=== PATIENT | female | born 1945 | race Caucasian/White ===

== ENCOUNTER 2019-05-02 11:14 | Inpatient (IN) | payer MEDICARE, MEDICAID ==
[~2019-05-02] VITALS: Ht 162.6 cm; Wt 74.8 kg
[2019-05-02 11:20] VITALS: BP 166/114
--- NOTE | 2019-05-02 11:23 | NUR ---
ED Nurse Note: Patient brought in to ER by ambulance from home due to SOB. Patient aao x4 and ambulatory with assist. skin clean and intact but pale. pt has hernia without pain on medial abdoman which has been since 2009. pt reported that she has had difficulty to breath for last 3 months and today it was worse and she called 911. 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 calm and cooperative.
[2019-05-02] MEDS ORDERED: DIGOX125 MCG PO (11:29)
[2019-05-02] MEDS ORDERED: FUROSEMIDE40 MG ORAL (11:29)
[2019-05-02] MEDS ORDERED: ELIQUIS5 MG PO (11:31)
[2019-05-02] MEDS ORDERED: AMIODARONE HCL100 MG ORAL (11:37)
[2019-05-02] MEDS ORDERED: Isovue-300 100ml vial INJ PRN (11:45)
[2019-05-02 12:08] LABS: BASOPHILS % (AUTO) 1.6 % (0.0-2.0); EOSINOPHILS % (AUTO) 6.8 % (0.0-3.0); HEMATOCRIT 45.1 % (37.0-47.0); HEMOGLOBIN 15.4 G/DL (12.0-16.0); LYMPHOCYTES % (AUTO) 17.9 % (20.0-45.0); MEAN CORPUSCULAR VOLUME 95 FL (80-99); MONOCYTES % (AUTO) 10.2 % (1.0-10.0); NEUTROPHILS % (AUTO) 63.5 % (45.0-75.0); PLATELET COUNT 246 K/UL (150-450); RED BLOOD COUNT 4.75 M/UL (4.20-5.40); RED CELL DISTRIBUTION WIDTH 12.3 % (11.6-14.8); WHITE BLOOD COUNT 8.2 K/UL (4.8-10.8)
[2019-05-02 12:17] LABS: ANION GAP 9 mmol/L (5-15); BLOOD UREA NITROGEN 20 mg/dL (7-18); CALCIUM 9.7 MG/DL (8.5-10.1); CARBON DIOXIDE 30 MMOL/L (21-32); CHLORIDE 101 MMOL/L (98-107); CREATININE 1.1 MG/DL (0.55-1.30); SODIUM 140 MMOL/L (136-145)
[2019-05-02 12:31] LABS: ALANINE AMINOTRANSFERASE 31 U/L (12-78); ALBUMIN 3.6 G/DL (3.4-5.0); ALBUMIN/GLOBULIN RATIO 0.9 (1.0-2.7); ALKALINE PHOSPHATASE 80 U/L (46-116); ASPARTATE AMINO TRANSFERASE 22 U/L (15-37); BILIRUBIN,TOTAL 0.6 MG/DL (0.2-1.0); CKMB 0.9 NG/ML (0.0-3.6); CREATINE KINASE 34 U/L (26-308)
--- NOTE | 2019-05-02 12:31 | NUR ---
ED Nurse Note: x-ray done at bedside.
--- NOTE | 2019-05-02 12:36 | NUR ---
ED Nurse Note: patient went to CT scan with stable condition.
--- NOTE | 2019-05-02 12:49 | Diagnostic Imaging Report ---
EXAM: XR Chest, 1 View CLINICAL HISTORY: SOB TECHNIQUE: Frontal view of the chest. COMPARISON: None FINDINGS: Hardware: None. Lungs/pleura: Left basilar opacity may represent combination of pleural effusion with atelectasis versus pneumonia. Pulmonary vasculature congestion. Heart/mediastinum: Enlargement of the cardiomediastinal silhouette. Atherosclerotic calcifications of the aorta. Soft tissues: Unremarkable. Bones: No acute fracture. Degenerative changes of the spine. Upper abdomen: Normal. IMPRESSION: Left basilar opacity may represent combination of pleural effusion with atelectasis versus pneumonia. Pulmonary vasculature congestion.
--- NOTE | 2019-05-02 12:57 | NUR ---
ED Nurse Note: pt came back from CT scan in stable condition.
--- NOTE | 2019-05-02 13:03 | NUR ---
ED Nurse Note: report given to SHELLY Alonso.
--- NOTE | 2019-05-02 13:32 | Diagnostic Imaging Report ---
EXAM: CT Chest With Intravenous Contrast CLINICAL HISTORY: SOB TECHNIQUE: Axial computed tomography images of the chest with intravenous contrast. CTDI is 21.75 mGy and DLP is 671.12 mGy-cm. One or more of the following dose reduction techniques were used: automated exposure control, adjustment of the mA and/or kV according to patient size, use of iterative reconstruction technique. COMPARISON: Chest radiograph on 05/02/2019 FINDINGS: Lung parenchyma: Calcified granulomas in the left lung. Subpleural nodular densities at the left lung apex, the largest measuring 6 mm. Left greater than right bibasilar atelectasis. Pleural space: Left-sided pleural thickening and/or trace effusion. Some nodular pleural thickening is seen posterior medially. Mediastinum/lorraine: Nonspecific prominent mediastinal and hilar lymph nodes. Calcified mediastinal and left hilar lymph nodes. Heart: Mild cardiomegaly. No pericardial effusion. Vasculature: Normal. No pulmonary embolus. Aorta: Atherosclerotic changes. No aortic dissection. Ectasia of the ascending aorta, measuring approximately 4.1 cm in diameter. Airways: Patent. Bones: Degenerative changes of the spine. No bony lesion or acute fracture. Muscles: No mass. Subcutaneous tissues: Normal. IMPRESSION: 1. No pulmonary embolus identified. 2. Ectasia of the ascending aorta measuring 4.1 cm in diameter. No aortic dissection. 3. Left-sided pleural thickening and/or trace effusion. Some nodular pleural thickening is seen posterior medially. Subpleural nodular densities at the left lung apex, the largest measuring 6 mm. 4. Old granulomatous disease. EXAM: CT Abdomen and Pelvis With Intravenous Contrast CLINICAL HISTORY: SOB TECHNIQUE: Axial computed tomography images of the abdomen and pelvis with intravenous contrast. CTDI is 22.28 mGy and DLP is 1091.73 mGy-cm. One or more of the following dose reduction techniques were used: automated exposure control, adjustment of the mA and/or kV according to patient size, use of iterative reconstruction technique. COMPARISON: None FINDINGS: Liver: Small hypodensity in the right liver is too small to definitively characterize. Punctate calcified granulomas in the liver. Mild hepatomegaly. Spleen: Punctate calcified granulomas in the spleen. No focal lesion. Gallbladder: Contracted gallbladder. No stones or biliary dilatation. Pancreas: Fatty atrophy of the pancreas. No acute inflammation. No mass. Adrenal glands: Normal. No mass. Kidneys: Scarring in the kidneys. Mildly prominent left extrarenal pelvis. No hydronephrosis or stone. No mass. Bowel: Diverticulosis without evidence of diverticulitis. Normal appendix. No bowel obstruction or inflammation. Urinary bladder: Normal. No wall thickening or mass. Reproductive organs: Prior hysterectomy. Muscles: No mass. Subcutaneous tissues: Postsurgical changes of the anterior abdominal wall. Small fat-containing umbilical hernia. Peritoneal space: Normal. No free fluid. Lymph nodes: Normal. No lymphadenopathy. Vessels: Atherosclerotic changes of the vasculature. Mild ectasia of the distal abdominal aorta. No aortic dissection. Bones: Degenerative changes of the spine. No acute fracture or bony lesion. IMPRESSION: No acute abnormality in the abdomen or pelvis.
--- NOTE | 2019-05-02 14:00 | NUR ---
ED Nurse Note: pt left unit with 1 technology internship and 1 RN in stable condition.
--- NOTE | 2019-05-02 14:05 | NUR ---
NURSE NOTES: Received report from Queenie daily. Pt is A&O X4. She is ambulatory without assist. Pt has steady gait. Belongings accounted for. Signed Belongings list is in chart. Heart monitor applied to pt. IV is patent. Bed is in lowest position, side rails up X2, and call light is within reach. Will continue to monitor.
--- NOTE | 2019-05-02 14:25 | Emergency Room Report ---
History of Present Illness General Chief Complaint: Dyspnea/Respdistress Source: Patient, EMS Present Illness HPI 73-year-old female presents ED for evaluation. Brought in by EMS complaining of shortness of breath for the last few days. Denies chest pain. States she has history of hiatal hernia required surgery years ago. Believes it could be related to that. Denies fevers chills. Denies cough. History of A. fib on Eliquis. No other aggravating relieving factors. Denies any other associated symptoms Allergies: Coded Allergies: No Known Allergies (Unverified , 05/02/19) Patient History Past Medical History: HTN Past Surgical History: none Pertinent Family History: none Social History: Denies: smoking, alcohol use, drug use Now: No Immunizations: UTD Reviewed Nursing Documentation: PMH: Agreed; PSxH: Agreed Nursing Documentation-PMH Past Medical History: No Stated History Hx Hypertension: Yes Hx COPD: No Review of Systems All Other Systems: negative except mentioned in HPI Physical Exam Vital Signs Date Time Temp Pulse Resp B/P (MAP) Pulse Ox O2 Delivery O2 Flow Rate FiO2 05/02/19 11:13 98.4 84 18 166/114 (131) 94 Room Air Sp02 EP Interpretation: reviewed, normal General Appearance: no apparent distress, alert, GCS 15, non-toxic Head: normocephalic, atraumatic Eyes: bilateral eye normal inspection, bilateral eye PERRL ENT: hearing grossly normal, normal pharynx, no angioedema, normal voice Neck: full range of motion, supple/symm/no masses Respiratory: chest non-tender, lungs clear, normal breath sounds, speaking full sentences Cardiovascular #1: regular rate, rhythm, no edema Cardiovascular #2: 2+ carotid (R), 2+ carotid (L), 2+ radial (R), 2+ radial (L) , 2+ dorsalis pedis (R), 2+ dorsalis pedis (L) Gastrointestinal: normal bowel sounds, non tender, soft, non-distended, no guarding, no rebound Rectal: deferred Genitourinary: normal inspection, no CVA tenderness Musculoskeletal: back normal, gait/station normal, normal range of motion, non- tender Neurologic: alert, oriented x3, responsive, motor strength/tone normal, sensory intact, speech normal Psychiatric: judgement/insight normal, memory normal, mood/affect normal, no suicidal/homicidal ideation Reflexes: 3+ bicep (R), 3+ bicep (L), 3+ tricep (R), 3+ tricep (L), 3+ knee (R) , 3+ knee (L) Skin: normal color, no rash, warm/dry, well hydrated Lymphatic: no adenopathy Medical Decision Making Diagnostic Impression: Primary Impression: Hypertensive urgency Additional Impressions: SOB (shortness of breath) Atrial fibrillation Qualified Codes: I48.91 - Unspecified atrial fibrillation Pleural effusion ER Course Hospital Course 73 yo F presents with SOB. h/o hypertension. h/o hiatal hernia Differential diagnoses include: Pneumonia, CHF exacerbation, pneumothorax, fluid overload Clinical course Patient placed on stretcher. On security monitor. After initial history and physical, I ordered labs, IV fluids, EKG, chest x-ray,CT Chest/Abd/Pelvis Labs - no leukocytosis, hb/hct stable, electrolytes ok, BNP eleavted, trop negative EKG - afib no evidence of RVR CXR - L sided effusion CT Chest - L sided effusion, no signs of hiatal hernia initially hypertensive resolved without medication. Test findings with patient. States that she had prior episode of pleural effusion. States she had smoked but stopped 30 years ago. lactate/cultures drawn. Antibiotics given. Case discussed with Dr. Coronel and he agreed to the patient to his service for further care and support I feel this is a highly complex case requiring extensive working including EKG/ Rhythm strip, Xray/CT/US, Blood/urine lab work, repeat exams while in ED, and administration of strong opiates/narcotics for pain control, admission to hospital or close patient follow up. Diagnosis - hypertensive urgency, shortness of breath, atrial fibrillation, pleural effusion Patient admitted to telemetry in serious condition Labs Test 05/02/19 11:50 05/02/19 14:00 White Blood Count 8.2 K/UL (4.8-10.8) Red Blood Count 4.75 M/UL (4.20-5.40) Hemoglobin 15.4 G/DL (12.0-16.0) Hematocrit 45.1 % (37.0-47.0) Mean Corpuscular Volume 95 FL (80-99) Mean Corpuscular Hemoglobin 32.4 PG (27.0-31.0) Mean Corpuscular Hemoglobin Concent 34.1 G/DL (32.0-36.0) Red Cell Distribution Width 12.3 % (11.6-14.8) Platelet Count 246 K/UL (150-450) Mean Platelet Volume 7.1 FL (6.5-10.1) Neutrophils (%) (Auto) 63.5 % (45.0-75.0) Lymphocytes (%) (Auto) 17.9 % (20.0-45.0) Monocytes (%) (Auto) 10.2 % (1.0-10.0) Eosinophils (%) (Auto) 6.8 % (0.0-3.0) Basophils (%) (Auto) 1.6 % (0.0-2.0) Prothrombin Time 10.2 SEC (9.30-11.50) Prothromb Time International Ratio 1.0 (0.9-1.1) Activated Partial Thromboplast Time 25 SEC (23-33) Sodium Level 140 MMOL/L (136-145) Potassium Level 4.0 MMOL/L (3.5-5.1) Chloride Level 101 MMOL/L (98-107) Carbon Dioxide Level 30 MMOL/L (21-32) Anion Gap 9 mmol/L (5-15) Blood Urea Nitrogen 20 mg/dL (7-18) Creatinine 1.1 MG/DL (0.55-1.30) Estimat Glomerular Filtration Rate mL/min (>60) Glucose Level 126 MG/DL (74-106) Calcium Level 9.7 MG/DL (8.5-10.1) Total Bilirubin 0.6 MG/DL (0.2-1.0) Aspartate Amino Transf (AST/SGOT) 22 U/L (15-37) Alanine Aminotransferase (ALT/SGPT) 31 U/L (12-78) Alkaline Phosphatase 80 U/L (46-116) Total Creatine Kinase 34 U/L (26-308) Creatine Kinase MB 0.9 NG/ML (0.0-3.6) Creatine Kinase MB Relative Index 2.6 Troponin I 0.004 ng/mL (0.000-0.056) Pro-B-Type Natriuretic Peptide 1581 pg/mL (0-125) Total Protein 7.5 G/DL (6.4-8.2) Albumin 3.6 G/DL (3.4-5.0) Globulin 3.9 g/dL Albumin/Globulin Ratio 0.9 (1.0-2.7) EKG Diagnostic Results Rate: normal Rhythm: other - atrial fibrillation ST Segments: no acute changes ASA given to the pt in ED: No Rhythm Strip Diag. Results EP Interpretation: yes Rhythm: no PVC's, no ectopy Chest X-Ray Diagnostic Results Chest X-Ray Diagnostic Results : Chest X-Ray Ordered: Yes # of Views/Limited/Complete: 1 View Indication: Shortness of Breath EP Interpretation: Yes Interpretation: no pneumothorax, other - L sided effusion Impression: Other - L sided effusion Electronically Signed by: Electronically signed by Jeremias Man MD CT/MRI/US Diagnostic Results CT/MRI/US Diagnostic Results : Imaging Test Ordered: CT Chest/Abd/Pelvis Impression 1. No pulmonary embolus identified. 2. Ectasia of the ascending aorta measuring 4.1 cm in diameter. No aortic dissection. 3. Left-sided pleural thickening and/or trace effusion. Some nodular pleural thickening is seen posterior medially. Subpleural nodular densities at the left lung apex, the largest measuring 6 mm. 4. Old granulomatous disease. Last Vital Signs Date Time Temp Pulse Resp B/P (MAP) Pulse Ox O2 Delivery O2 Flow Rate FiO2 05/02/19 14:00 98.0 80 18 151/111 98 Room Air Status: improved Disposition: ADMITTED INPATIENT Condition: Serious Referrals: NON PHYSICIAN (PCP) Jeremias Man MD May 02, 2019 14:25
--- NOTE | 2019-05-02 15:12 | History & Physical ---
History and Physical History & Physicial seen and Examined. Full Dictation completed. Devon Coronel MD May 02, 2019 15:12
[2019-05-02] MEDS ORDERED: Albuterol/Ipratropium 3ml neb HHN PRN (15:15)
[2019-05-02] MEDS ORDERED: Nitroglycerin Subl 0.4mg tab SL PRN (15:45)
--- NOTE | 2019-05-02 15:52 | Infectious Diseases Prog Note ---
Assessment/Plan Problems: (1) Pleural nodules Assessment & Plan: rule out fungal etiology , will order serology , consider pulmonary eval (2) Pleural effusion Assessment & Plan: nonspecific , monitor clinically, too small for thoracentesis (3) SOB (shortness of breath) Assessment & Plan: rule out interstitial lungs disease with H/O living close by [place] [employer] plants Subjective Allergies: Coded Allergies: No Known Allergies (Unverified , 05/02/19) Objective Vital Signs Last 24 Hour Vital Signs Date Time Temp Pulse Resp B/P (MAP) Pulse Ox O2 Delivery O2 Flow Rate FiO2 05/02/19 14:00 98.0 80 18 151/111 98 Room Air 05/02/19 11:20 98.4 84 18 166/114 96 Room Air 05/02/19 11:20 84 18 Room Air 05/02/19 11:13 98.4 84 18 166/114 (131) 94 Room Air Height (Feet): 5 Height (Inches): 4.00 Weight (Pounds): 165 Laboratory Tests Test 05/02/19 11:50 05/02/19 14:00 White Blood Count 8.2 K/UL (4.8-10.8) Red Blood Count 4.75 M/UL (4.20-5.40) Hemoglobin 15.4 G/DL (12.0-16.0) Hematocrit 45.1 % (37.0-47.0) Mean Corpuscular Volume 95 FL (80-99) Mean Corpuscular Hemoglobin 32.4 PG (27.0-31.0) H Mean Corpuscular Hemoglobin Concent 34.1 G/DL (32.0-36.0) Red Cell Distribution Width 12.3 % (11.6-14.8) Platelet Count 246 K/UL (150-450) Mean Platelet Volume 7.1 FL (6.5-10.1) Neutrophils (%) (Auto) 63.5 % (45.0-75.0) Lymphocytes (%) (Auto) 17.9 % (20.0-45.0) L Monocytes (%) (Auto) 10.2 % (1.0-10.0) H Eosinophils (%) (Auto) 6.8 % (0.0-3.0) H Basophils (%) (Auto) 1.6 % (0.0-2.0) Prothrombin Time 10.2 SEC (9.30-11.50) Prothromb Time International Ratio 1.0 (0.9-1.1) Activated Partial Thromboplast Time 25 SEC (23-33) Sodium Level 140 MMOL/L (136-145) Potassium Level 4.0 MMOL/L (3.5-5.1) Chloride Level 101 MMOL/L (98-107) Carbon Dioxide Level 30 MMOL/L (21-32) Anion Gap 9 mmol/L (5-15) Blood Urea Nitrogen 20 mg/dL (7-18) H Creatinine 1.1 MG/DL (0.55-1.30) Estimat Glomerular Filtration Rate mL/min (>60) Glucose Level 126 MG/DL (74-106) H Calcium Level 9.7 MG/DL (8.5-10.1) Total Bilirubin 0.6 MG/DL (0.2-1.0) Aspartate Amino Transf (AST/SGOT) 22 U/L (15-37) Alanine Aminotransferase (ALT/SGPT) 31 U/L (12-78) Alkaline Phosphatase 80 U/L (46-116) Total Creatine Kinase 34 U/L (26-308) Creatine Kinase MB 0.9 NG/ML (0.0-3.6) Creatine Kinase MB Relative Index 2.6 Troponin I 0.004 ng/mL (0.000-0.056) Pro-B-Type Natriuretic Peptide 1581 pg/mL (0-125) H Total Protein 7.5 G/DL (6.4-8.2) Albumin 3.6 G/DL (3.4-5.0) Globulin 3.9 g/dL Albumin/Globulin Ratio 0.9 (1.0-2.7) L Lactic Acid Level 1.10 mmol/L (0.4-2.0) Digoxin Level < 0.2 NG/ML (0.9-2.0) L Current Medications Medications (Trade) Dose Ordered Sig/Felipe Route PRN Reason Start Time Stop Time Status Last Admin Dose Admin Albuterol/ Ipratropium (Albuterol/ Ipratropium) 3 ml Q4H PRN HHN Shortness of Breath 05/02/19 15:15 05/07/19 15:14 Iopamidol (Isovue-300 100ml) 100 ml NOW PRN INJ Radiology Procedure 05/02/19 11:45 Carolyne Pinto M.D. May 02, 2019 15:52
--- NOTE | 2019-05-02 16:36 | NUR ---
NURSE NOTES: Received report from SHELLY Calzada. Patient in bed resting, no active s/s cardiac, respiratory distress noticed at this time. Patient on room air, AOx4. IV on right hand 20G, asymptomatic, patent, intact. Bed in lowest position, side rails upx2, call light within reach. Will continue to monitor.
--- NOTE | 2019-05-02 16:39 | NUR ---
HAND-OFF: Report given to Queenie Munoz. Plan of care endorsed
--- NOTE | 2019-05-02 17:42 | NUR ---
NURSE NOTES: Dr. Madrigal made aware patient having A. fib with HR 100-130s. No order given at this time. Will continue to monitor.
--- NOTE | 2019-05-02 17:52 | NUR ---
NURSE NOTES: Per Dr. Madrigal, order 2D echo in AM. 2D echo already been ordered by Dr. Coronel. Will continue to monitor.
--- NOTE | 2019-05-02 19:07 | NUR ---
HAND-OFF: Report given to SHELLY Tian.
--- NOTE | 2019-05-02 19:34 | NUR ---
NURSE NOTES: Report received from Aung Hartman RN. Pt is sitting up at bedside talking on the telephone. Pt is in stable condition. Pt is AOx4. Pt is on room air and breathing is even and unlabored. No acute distress noted. IV site is R hand #20g and is asymptomatic, patent, and intact. Bed is in lowest position with brake engaged and side rails up x2. Call light and side table placed within reach. Will continue to monitor.
[2019-05-02 20:00] VITALS: BP 181/94
--- NOTE | 2019-05-02 20:01 | History and Physical Report ---
DATE OF ADMISSION: 05/02/2019 SOURCE OF INFORMATION: Patient and EMR. HISTORY OF PRESENT ILLNESS: The patient is a pleasant 73-year-old female with a history of heart failure (unverified), who presented with worsening of shortness of breath for the last five days. At the time of evaluation, the patient denies any chest pain. No fever. No cough. However, the patient is complaining of worsening of shortness of breath and swelling on the legs. At the time of evaluation, the patient appears comfortable. REVIEW OF SYSTEMS: All 12 elements of review of systems reviewed, pertinent positive and negative as above. ALLERGIES: NKDA. FAMILY HISTORY: Reviewed, noncontributory. SOCIAL HISTORY: The patient denies history of illicit drug abuse, alcohol abuse, or tobacco use. Positive for social alcohol drinking. The patient lives by herself. PAST MEDICAL HISTORY: Atrial fibrillation, heart failure (unverified), hypertension. HOME MEDICATIONS: Including Eliquis, digoxin, Lasix. PHYSICAL EXAMINATION: VITAL SIGNS: Blood pressure 160/110, respiratory rate 18, temperature 98.4, pulse rate 84, pulse oximetry 94% on room air. HEAD AND NECK: Atraumatic, normocephalic. CHEST: Clear to auscultation. HEART: S1, S2. Regular rate and rhythm. ABDOMEN: Soft. No organomegaly. MUSCULOSKELETAL: Positive for 2+ pitting edema in the bilateral ankles. NEUROLOGIC: Awake, alert, oriented x3. LABORATORY DATA: Dated 05/02/2019, WBC is 8.2, hemoglobin 15.4, platelets 264. Sodium 140, potassium 4. ALT, AST are within normal limits. Chest x-ray dated 05/02/2019 reviewed shows left basilar opacity. CT scan of the abdomen and pelvis reviewed. ASSESSMENT AND PLAN: 1. Congestive heart failure exacerbation, a likely diagnosis. 2. Healthcare-associated pneumonia, less likely. 3. Atrial fibrillation with controlled rate. 4. Hypertension. 5. Abnormal blood sugar. 6. GI and DVT prophylaxes. PLAN OF CARE: I will order 2D echo. Cardiology consult. We will consult the Pulmonary and Infectious Disease. Continue with breathing treatment as needed. We will hold on initiation of any antibiotic. We will monitor. Devon Coronel M.D. DR: ASHLEY JOB#: [id number] CC:
--- NOTE | 2019-05-02 20:15 | Consultation ---
DATE OF CONSULTATION: 05/02/2019 INFECTIOUS DISEASE CONSULTATION CONSULTING PHYSICIAN: Carolyne Pinto M.D. REQUESTING PHYSICIAN: Devon Coronel M.D. REASON FOR CONSULTATION: Left pleural thickening with nodules and pleural effusion. Recommendation for antimicrobial treatment and further management. HISTORY OF PRESENT ILLNESS: The patient is a 73-year-old morbidly obese female with past medical history of hypertension, presented to the emergency room at [facility] with shortness of breath for the last three weeks and dry cough. No chest pain. No night sweats or weight loss. No fever or chills. Shortness of breath gets worse with activities and lying flat. The patient was treated previously for fungal pneumonia in 2008 when she moved from [place] to [facility] in 2008. She is unsure what kind of fungal pneumonia she was treated for. As of note, the patient was living close by [employer] in the past. Denied any smoking or living with a smoker during her life. In the emergency room, the patient had a chest x-ray, which showed minimal left pleural effusion with some atelectasis. CT scan of the chest abdomen and pelvis showed left pleural thickening with subpleural nodules at the apex and pleural thickening. So, Infectious Disease consultation was requested for workup and further management. REVIEW OF SYSTEMS: A 14-point of system reviewed were all negative apart from the ones I mentioned above in my History and Physical. PAST MEDICAL HISTORY: Significant for atrial fibrillation and hypertension. PAST SURGICAL HISTORY: Negative. FAMILY HISTORY: Not contributory to her current problem with no lung disease in the family. SOCIAL HISTORY: The patient is retired, lives at home with family. Denied using any drugs, tobacco, or alcohol. ALLERGIES: No known drug allergies. MEDICATIONS: She is on nebulizer treatment and iopamidol. LABORATORY AND DIAGNOSTIC DATA: Labs showed white count of 8.2, hemoglobin of 15.4 platelet count of 246. BUN of 20, creatinine of 1.1. AST of 22 and ALT of 51. Digoxin level less than 0.2. IMAGIN. Chest x-ray showed left basilar opacity may represent combination of pleural effusion with atelectasis versus pneumonia, pulmonary vasculature congestion. 2. CT scan, chest, abdomen and pelvis with IV contrast showed no pulmonary embolus identified, ectasia of ascending aorta, no aortic dissection, left-sided pleural thickening or trace effusion, some nodular pleural thickening is seen posterior medially, subpleural nodular density at the left lung apex, the largest measuring 6 mm, old granulomatous disease. PHYSICAL EXAMINATION: VITAL SIGNS: Temperature 98, pulse 80, respirations 18, blood pressure 151/111, and saturation 98% on room air. GENERAL: Old female, morbidly obese, lying in bed, awake, alert, responsive, not in acute distress. HEENT: Normocephalic, atraumatic. Pupils are reactive to light equally. Moist oral mucosa. No exudate or thrush. NECK: Supple. No lymphadenopathy. CARDIOVASCULAR: Regular rate and rhythm. No murmur or gallop. LUNGS: Diminished breathing sounds at the apices on both sides. No wheezing or rhonchi. Normal breathing efforts. Poor air entry. ABDOMEN: Soft, obese, nontender, and nondistended. Normal bowel sounds. No hepatosplenomegaly or ascites. EXTREMITIES: No edema or cyanosis. SKIN: No rash. No hives. ASSESSMENT AND RECOMMENDATION: 1. Pleural nodules, rule out fungal etiology. We will order serology for coccidioidomycosis, histoplasmosis, cryptococcus, and blastomycosis. Consider Pulmonary evaluation. 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 2. Pleural effusion, nonspecific, monitor clinically, too small for thoracentesis. 3. Shortness of breath. Rule out interstitial lung disease with history of living close by [place] plants. Pulmonary is consulted. Continue nebulizer treatment, inhalers, and oxygen as needed. Thank you for the consult. Infectious Disease will continue to follow. Carolyne Pinto M.D. DR: BEL JOB#: [id number] CC:
[2019-05-02] MEDS ORDERED: Atorvastatin 20mg tab ORAL SCH (21:00)
--- NOTE | 2019-05-02 21:01 | NUR ---
NURSE NOTES: Urine specimen collected and taken to lab.
--- NOTE | 2019-05-02 21:27 | NUR ---
NURSE NOTES: Pt requesting sleep aid. MD Coronel contacted. Per haydee CURRIE to place order for Ambien 5mg QHS PRN for insomnia. Orders noted and carried out.
[2019-05-02] MEDS ORDERED: Zolpidem 5mg tab ORAL PRN (21:30)
--- NOTE | 2019-05-02 21:36 | NUR ---
NURSE NOTES: Pt BP noted to be 181/94. MD Madrigal notified. Per MD Madrigal, place order for Norvasc 5mg BID PRN for SBP > 155. Orders noted and carried out. Will administer PRN as appropriate.
[2019-05-03] VITALS: BP 128/94
[2019-05-03 04:00] VITALS: BP 149/85
[2019-05-03 07:21] LABS: BASOPHILS % (AUTO) 1.5 % (0.0-2.0); EOSINOPHILS % (AUTO) 7.1 % (0.0-3.0); HEMATOCRIT 43.2 % (37.0-47.0); HEMOGLOBIN 14.7 G/DL (12.0-16.0); LYMPHOCYTES % (AUTO) 18.1 % (20.0-45.0); MEAN CORPUSCULAR VOLUME 95 FL (80-99); MONOCYTES % (AUTO) 11.7 % (1.0-10.0); NEUTROPHILS % (AUTO) 61.7 % (45.0-75.0); PLATELET COUNT 227 K/UL (150-450); RED BLOOD COUNT 4.55 M/UL (4.20-5.40); RED CELL DISTRIBUTION WIDTH 12.4 % (11.6-14.8); WHITE BLOOD COUNT 8.7 K/UL (4.8-10.8)
--- NOTE | 2019-05-03 07:23 | NUR ---
HAND-OFF: Report given to Aung Hartman RN. Pt is resting in bed in stable condition. No acute distress noted. Endorsed plan of care.
--- NOTE | 2019-05-03 07:32 | NUR ---
NURSE NOTES: Received report from SHELLY Tian. Patient in bed resting, no active s/s cardiac, respiratory distress noticed at this time. Patient on 2L oxygen via NC, c/o headache, one dose of Tylenol given at this time, A.fib with HR 81. IV on right hand 20G, asymptomatic, patent, intact. Bed in lowest position, side rails upx2, call light within reach. Will continue to monitor.
[2019-05-03 07:42] LABS: ALANINE AMINOTRANSFERASE 30 U/L (12-78); ALBUMIN 3.2 G/DL (3.4-5.0); ALBUMIN/GLOBULIN RATIO 0.8 (1.0-2.7); ALKALINE PHOSPHATASE 71 U/L (46-116); ANION GAP 9 mmol/L (5-15); ASPARTATE AMINO TRANSFERASE 20 U/L (15-37); BILIRUBIN,TOTAL 0.5 MG/DL (0.2-1.0); BLOOD UREA NITROGEN 20 mg/dL (7-18); CALCIUM 9.3 MG/DL (8.5-10.1); CARBON DIOXIDE 32 MMOL/L (21-32); CHLORIDE 99 MMOL/L (98-107); CHOLESTEROL 235 MG/DL (< 200); CREATININE 1.2 MG/DL (0.55-1.30); HDL CHOLESTEROL 41 MG/DL (40-60); POTASSIUM 3.9 MMOL/L (3.5-5.1); SODIUM 140 MMOL/L (136-145); TRIGLYCERIDES 195 MG/DL (30-150)
[2019-05-03 08:00] VITALS: BP 163/90
[2019-05-03] MEDS: Eliquis 5mg tablet ORAL SCH ×2 (08:08→17:31)
[2019-05-03] MEDS: Digoxin 0.125mg tab ORAL SCH (08:08)
--- NOTE | 2019-05-03 08:55 | General Progress Note ---
Assessment/Plan Assessment/Plan: S: I am ok O: seems comfortable, lying on the bed PHYSICAL EXAMINATION: HEAD AND NECK: Atraumatic, normocephalic.CHEST: Clear to auscultation.HEART: S1, S2. Regular rate and rhythm. ABDOMEN: Soft. No organomegaly.MUSCULOSKELETAL: Positive for 2+ pitting edema in the bilateral ankles. NEUROLOGIC: Awake, alert, oriented x3. Imaging: pending echo ASSESSMENT AND PLAN: 1. Congestive heart failure exacerbation, a likely diagnosis. 2. Healthcare-associated pneumonia, less likely. 3. Atrial fibrillation with controlled rate. 4. Hypertension. 5. Abnormal blood sugar. 6. GI and DVT prophylaxes. Plan: Notes from cardiology and ID reviewed will continue with optimization of medications Subjective Allergies: Coded Allergies: LATEX (Verified Allergy, Unknown, 05/02/19) Objective Last 24 Hour Vital Signs Date Time Temp Pulse Resp B/P (MAP) Pulse Ox O2 Delivery O2 Flow Rate FiO2 05/03/19 08:08 80 163/90 05/03/19 08:08 80 05/03/19 08:00 98.9 80 18 163/90 (114) 96 05/03/19 04:00 81 05/03/19 04:00 98.3 81 16 149/85 (106) 96 05/03/19 00:00 98.1 83 16 128/94 (105) 98 05/03/19 00:00 96 05/02/19 21:13 87 20 95 Room Air 21 05/02/19 21:00 Nasal Cannula 2.0 05/02/19 20:00 97.1 88 18 181/94 (123) 97 05/02/19 20:00 95 05/02/19 16:04 Nasal Cannula 2.0 05/02/19 16:00 2.0 05/02/19 16:00 109 05/02/19 14:00 98.0 80 18 151/111 98 Room Air 05/02/19 11:20 98.4 84 18 166/114 96 Room Air 05/02/19 11:20 84 18 Room Air 05/02/19 11:13 98.4 84 18 166/114 (131) 94 Room Air Intake and Output 05/02/19 05/03/19 19:00 07:00 Intake Total 240 ml 600 ml Balance 240 ml 600 ml Intake Oral 240 ml 600 ml # Voids 3 Laboratory Tests 05/02/19 11:50: White Blood Count 8.2, Red Blood Count 4.75, Hemoglobin 15.4, Hematocrit 45.1, Mean Corpuscular Volume 95, Mean Corpuscular Hemoglobin 32.4H, Mean Corpuscular Hemoglobin Concent 34.1, Red Cell Distribution Width 12.3, Platelet Count 246, Mean Platelet Volume 7.1, Neutrophils (%) (Auto) 63.5, Lymphocytes (%) (Auto) 17.9L, Monocytes (%) (Auto) 10.2H, Eosinophils (%) (Auto) 6.8H, Basophils (%) ( Auto) 1.6, Prothrombin Time 10.2, Prothromb Time International Ratio 1.0, Activated Partial Thromboplast Time 25, Sodium Level 140, Potassium Level 4.0, Chloride Level 101, Carbon Dioxide Level 30, Anion Gap 9, Blood Urea Nitrogen 20H, Creatinine 1.1, Estimat Glomerular Filtration Rate , Glucose Level 126H, Calcium Level 9.7, Total Bilirubin 0.6, Aspartate Amino Transf (AST/SGOT) 22, Alanine Aminotransferase (ALT/SGPT) 31, Alkaline Phosphatase 80, Total Creatine Kinase 34, Creatine Kinase MB 0.9, Creatine Kinase MB Relative Index 2.6, Troponin I 0.004, Pro-B-Type Natriuretic Peptide 1581H, Total Protein 7.5, Albumin 3.6, Globulin 3.9, Albumin/Globulin Ratio 0.9L 05/02/19 14:00: Lactic Acid Level 1.10, Digoxin Level < 0.2L 05/02/19 21:00: Histoplasma Antigen [Pending] 05/02/19 21:37: Troponin I 0.000, Blastomyces Ab Immunodiffusion [Pending], Coccidioides Antibody (Comp Fix) [Pending], Cryptococcus Antigen [Pending] 05/03/19 06:20: White Blood Count 8.7, Red Blood Count 4.55, Hemoglobin 14.7, Hematocrit 43.2, Mean Corpuscular Volume 95, Mean Corpuscular Hemoglobin 32.3H, Mean Corpuscular Hemoglobin Concent 33.9, Red Cell Distribution Width 12.4, Platelet Count 227, Mean Platelet Volume 7.6, Neutrophils (%) (Auto) 61.7, Lymphocytes (%) (Auto) 18.1L, Monocytes (%) (Auto) 11.7H, Eosinophils (%) (Auto) 7.1H, Basophils (%) ( Auto) 1.5, Sodium Level 140, Potassium Level 3.9, Chloride Level 99, Carbon Dioxide Level 32, Anion Gap 9, Blood Urea Nitrogen 20H, Creatinine 1.2, Estimat Glomerular Filtration Rate , Glucose Level 116H, Hemoglobin A1c 6.2H, Calcium Level 9.3, Total Bilirubin 0.5, Aspartate Amino Transf (AST/SGOT) 20, Alanine Aminotransferase (ALT/SGPT) 30, Alkaline Phosphatase 71, Troponin I 0.000, Pro-B -Type Natriuretic Peptide 1254H, Total Protein 7.1, Albumin 3.2L, Globulin 3.9, Albumin/Globulin Ratio 0.8L, Triglycerides Level 195H, Cholesterol Level 235H, LDL Cholesterol 156H, HDL Cholesterol 41, Cholesterol/HDL Ratio 5.7H, Thyroid Stimulating Hormone (TSH) 5.368H Height (Feet): 5 Height (Inches): 4.00 Weight (Pounds): 165 Devon Coronel MD May 03, 2019 08:55
[2019-05-03] MEDS ORDERED: Eliquis 5mg tablet ORAL SCH (09:00)
[2019-05-03] MEDS ORDERED: Amiodarone 200mg tab ORAL SCH (09:00)
[2019-05-03] MEDS ORDERED: Metoprolol Succinate XL 25mg tab ORAL SCH (09:00)
--- NOTE | 2019-05-03 09:56 | Consultation ---
Consult Note Consult Note PCCM REFERRED BY: Devon Coronel MD REASON FOR REFERRAL: SOB HPI: 73F non-smoker h/o HTN, AF S/P failed CV x 3 on AC, CHF, hypothyroidism, obesity, OGD seen @ [facility] twice and [facility] once in the past 2 months with CATES and SOB p/w one month of progressive cough, congestion and SOB, some wheezing, no FC, + CATES, no dizziness, no NVDC. She has a h/o anxiety as well but feels it is not contributing. She denies any other complaints. No T/E/D uSE PMH/PSH: Obesity Hypothyroidism HTN CHF AF S/P failed CV x 3 in the past ALL: Latex Active Scripts Medications Dose Route/Sig Max Daily Dose Days Date Category Amiodarone Hcl (Amiodarone HCl) 100 Mg Tablet Unknown Dose ORAL 05/02/19 Reported Eliquis (Apixaban) 5 Mg Tablet 5 Mg PO 05/02/19 Reported Digox (Digoxin) 125 Mcg Tablet Unknown Dose PO 05/02/19 Reported Lasix* (Furosemide) 40 Mg Tablet 40 Mg ORAL TWICE A DAY 05/02/19 Reported SHx: No T/E/D use, lived near a power plan in [place] years ago FHx: N/X ROS: Negative other than HPI PE: Last 24 Hour Vital Signs Date Time Temp Pulse Resp B/P (MAP) Pulse Ox O2 Delivery O2 Flow Rate FiO2 05/03/19 09:00 Nasal Cannula 2.0 05/03/19 08:08 80 163/90 05/03/19 08:08 80 05/03/19 08:00 98.9 80 18 163/90 (114) 96 05/03/19 04:00 81 05/03/19 04:00 98.3 81 16 149/85 (106) 96 05/03/19 00:00 98.1 83 16 128/94 (105) 98 05/03/19 00:00 96 05/02/19 21:13 87 20 95 Room Air 21 05/02/19 21:00 Nasal Cannula 2.0 05/02/19 20:00 97.1 88 18 181/94 (123) 97 05/02/19 20:00 95 05/02/19 16:04 Nasal Cannula 2.0 05/02/19 16:00 2.0 05/02/19 16:00 109 05/02/19 14:00 98.0 80 18 151/111 98 Room Air 05/02/19 11:20 98.4 84 18 166/114 96 Room Air 05/02/19 11:20 84 18 Room Air 05/02/19 11:13 98.4 84 18 166/114 (131) 94 Room Air NAD, obese female, AAOX3 NC/AT, OPC c MMM Supple s LAD, 6 cm JVD CTA b s W/R/R Ir Ir S/NT/ND c NABS No C/C, trace LEEROY Laboratory Tests Test 05/02/19 11:50 05/02/19 14:00 05/02/19 21:00 05/02/19 21:37 White Blood Count 8.2 K/UL (4.8-10.8) Red Blood Count 4.75 M/UL (4.20-5.40) Hemoglobin 15.4 G/DL (12.0-16.0) Hematocrit 45.1 % (37.0-47.0) Mean Corpuscular Volume 95 FL (80-99) Mean Corpuscular Hemoglobin 32.4 PG (27.0-31.0) H Mean Corpuscular Hemoglobin Concent 34.1 G/DL (32.0-36.0) Red Cell Distribution Width 12.3 % (11.6-14.8) Platelet Count 246 K/UL (150-450) Mean Platelet Volume 7.1 FL (6.5-10.1) Neutrophils (%) (Auto) 63.5 % (45.0-75.0) Lymphocytes (%) (Auto) 17.9 % (20.0-45.0) L Monocytes (%) (Auto) 10.2 % (1.0-10.0) H Eosinophils (%) (Auto) 6.8 % (0.0-3.0) H Basophils (%) (Auto) 1.6 % (0.0-2.0) Prothrombin Time 10.2 SEC (9.30-11.50) Prothromb Time International Ratio 1.0 (0.9-1.1) Activated Partial Thromboplast Time 25 SEC (23-33) Sodium Level 140 MMOL/L (136-145) Potassium Level 4.0 MMOL/L (3.5-5.1) Chloride Level 101 MMOL/L (98-107) Carbon Dioxide Level 30 MMOL/L (21-32) Anion Gap 9 mmol/L (5-15) Blood Urea Nitrogen 20 mg/dL (7-18) H Creatinine 1.1 MG/DL (0.55-1.30) Estimat Glomerular Filtration Rate mL/min (>60) Glucose Level 126 MG/DL (74-106) H Calcium Level 9.7 MG/DL (8.5-10.1) Total Bilirubin 0.6 MG/DL (0.2-1.0) Aspartate Amino Transf (AST/SGOT) 22 U/L (15-37) Alanine Aminotransferase (ALT/SGPT) 31 U/L (12-78) Alkaline Phosphatase 80 U/L (46-116) Total Creatine Kinase 34 U/L (26-308) Creatine Kinase MB 0.9 NG/ML (0.0-3.6) Creatine Kinase MB Relative Index 2.6 Troponin I 0.004 ng/mL (0.000-0.056) 0.000 ng/mL (0.000-0.056) Pro-B-Type Natriuretic Peptide 1581 pg/mL (0-125) H Total Protein 7.5 G/DL (6.4-8.2) Albumin 3.6 G/DL (3.4-5.0) Globulin 3.9 g/dL Albumin/Globulin Ratio 0.9 (1.0-2.7) L Lactic Acid Level 1.10 mmol/L (0.4-2.0) Digoxin Level < 0.2 NG/ML (0.9-2.0) L Histoplasma Antigen Pending Blastomyces Ab Immunodiffusion Pending Coccidioides Antibody (Comp Fix) Pending Cryptococcus Antigen Pending Test 05/03/19 06:20 White Blood Count 8.7 K/UL (4.8-10.8) Red Blood Count 4.55 M/UL (4.20-5.40) Hemoglobin 14.7 G/DL (12.0-16.0) Hematocrit 43.2 % (37.0-47.0) Mean Corpuscular Volume 95 FL (80-99) Mean Corpuscular Hemoglobin 32.3 PG (27.0-31.0) H Mean Corpuscular Hemoglobin Concent 33.9 G/DL (32.0-36.0) Red Cell Distribution Width 12.4 % (11.6-14.8) Platelet Count 227 K/UL (150-450) Mean Platelet Volume 7.6 FL (6.5-10.1) Neutrophils (%) (Auto) 61.7 % (45.0-75.0) Lymphocytes (%) (Auto) 18.1 % (20.0-45.0) L Monocytes (%) (Auto) 11.7 % (1.0-10.0) H Eosinophils (%) (Auto) 7.1 % (0.0-3.0) H Basophils (%) (Auto) 1.5 % (0.0-2.0) Sodium Level 140 MMOL/L (136-145) Potassium Level 3.9 MMOL/L (3.5-5.1) Chloride Level 99 MMOL/L (98-107) Carbon Dioxide Level 32 MMOL/L (21-32) Anion Gap 9 mmol/L (5-15) Blood Urea Nitrogen 20 mg/dL (7-18) H Creatinine 1.2 MG/DL (0.55-1.30) Estimat Glomerular Filtration Rate mL/min (>60) Glucose Level 116 MG/DL (74-106) H Hemoglobin A1c 6.2 % (4.3-6.0) H Calcium Level 9.3 MG/DL (8.5-10.1) Total Bilirubin 0.5 MG/DL (0.2-1.0) Aspartate Amino Transf (AST/SGOT) 20 U/L (15-37) Alanine Aminotransferase (ALT/SGPT) 30 U/L (12-78) Alkaline Phosphatase 71 U/L (46-116) Troponin I 0.000 ng/mL (0.000-0.056) Pro-B-Type Natriuretic Peptide 1254 pg/mL (0-125) H Total Protein 7.1 G/DL (6.4-8.2) Albumin 3.2 G/DL (3.4-5.0) L Globulin 3.9 g/dL Albumin/Globulin Ratio 0.8 (1.0-2.7) L Triglycerides Level 195 MG/DL (30-150) H Cholesterol Level 235 MG/DL (< 200) H LDL Cholesterol 156 mg/dL (<100) H HDL Cholesterol 41 MG/DL (40-60) Cholesterol/HDL Ratio 5.7 (3.3-4.4) H Thyroid Stimulating Hormone (TSH) 5.368 uiU/mL (0.358-3.740) CXR: Atx vs inf L base CT CAP: 1. No pulmonary embolus identified. 2. Ectasia of the ascending aorta measuring 4.1 cm in diameter. No aortic dissection. 3. Left-sided pleural thickening and/or trace effusion. Some nodular pleural thickening is seen posterior medially. Subpleural nodular densities at the left lung apex, the largest measuring 6 mm. 4. Old granulomatous disease. 5. No abnormalities in abdomen Assessment/Plan ASSESSMENT: * SOB, likely multifactorial 2/2 CHF/DD, anxiety, obesity, ? OHV/OSH * CATES * Old granulomatous disease * L pleural thickening and scarring, ? sequlae of old infection, stable compared to chest cuts of CT A/P [facility] 06/2017 * Obesity * CHF with DD * AF S/P failed ablation x 3 in the past * Hypothyroidism * HTN, HL * Amiodarone usage but no e/o ILD on CT * Elevated TSH PLAN: * Optimize pulmonary hygiene/mobilize as tolerated * PRN O2 * PRN HHN's * F/U serologies as ordered by ID * Consider outpatient PET/CT * Monitor volumes and renal function, cautious diuresis as able * F/U TTE * CT head ordered * F/U TFT's * DVT Px: Eliquis * FC Dinesh Whyte MD May 03, 2019 09:56
--- NOTE | 2019-05-03 10:52 | NUR ---
NURSE NOTES: Dr. Coronel made aware patient c/o headache 08/20 constant, dull, patient stated Tylenol 650mg given does not relieve pain. No order given at this time. Will continue to monitor. Addendum: 05/03/19 at 1140 by AZEEM BALLESTEROS RN Per Dr. Coronel, [place] , PO, Q4h, PRN. Order noted, entered, carried out.
--- NOTE | 2019-05-03 11:01 | Cardiology Progress Note ---
Assessment/Plan Assessment/Plan [id number] chf sx seems to have cleared failed 3rd cardioversion attempt in 08/2018 after a few day of sinus i would dc amio as not worth the risk if no potential benefit has been in afib ofr suha past 8 mon she says may need Metoprol increased keep on bb and dig may need higher bb dose after a few weeks off amio await echo diuretic bid with extra dose a few days if feel sob prior to er eval in future may beneift form daily weight once dc form hospital she may not be following up with [facility] , she may fu with me if she wishes in future i will be away for the next [address] harris with cover me Objective Last 24 Hour Vital Signs Date Time Temp Pulse Resp B/P (MAP) Pulse Ox O2 Delivery O2 Flow Rate FiO2 05/03/19 09:00 Nasal Cannula 2.0 05/03/19 08:16 83 18 96 Nasal Cannula 2.0 28 05/03/19 08:15 96 Nasal Cannula 2.0 05/03/19 08:08 80 163/90 05/03/19 08:08 80 05/03/19 08:00 98.9 80 18 163/90 (114) 96 05/03/19 08:00 84 05/03/19 04:00 81 05/03/19 04:00 98.3 81 16 149/85 (106) 96 05/03/19 00:00 98.1 83 16 128/94 (105) 98 05/03/19 00:00 96 05/02/19 21:13 87 20 95 Room Air 21 05/02/19 21:00 Nasal Cannula 2.0 05/02/19 20:00 97.1 88 18 181/94 (123) 97 05/02/19 20:00 95 05/02/19 16:04 Nasal Cannula 2.0 05/02/19 16:00 2.0 05/02/19 16:00 109 05/02/19 14:00 98.0 80 18 151/111 98 Room Air 05/02/19 11:20 98.4 84 18 166/114 96 Room Air 05/02/19 11:20 84 18 Room Air 05/02/19 11:13 98.4 84 18 166/114 (131) 94 Room Air Intake and Output 05/02/19 05/03/19 19:00 07:00 Intake Total 240 ml 600 ml Balance 240 ml 600 ml Intake Oral 240 ml 600 ml # Voids 3 Laboratory Tests Test 05/02/19 11:50 05/02/19 14:00 05/02/19 21:00 05/02/19 21:37 White Blood Count 8.2 K/UL (4.8-10.8) Red Blood Count 4.75 M/UL (4.20-5.40) Hemoglobin 15.4 G/DL (12.0-16.0) Hematocrit 45.1 % (37.0-47.0) Mean Corpuscular Volume 95 FL (80-99) Mean Corpuscular Hemoglobin 32.4 PG (27.0-31.0) H Mean Corpuscular Hemoglobin Concent 34.1 G/DL (32.0-36.0) Red Cell Distribution Width 12.3 % (11.6-14.8) Platelet Count 246 K/UL (150-450) Mean Platelet Volume 7.1 FL (6.5-10.1) Neutrophils (%) (Auto) 63.5 % (45.0-75.0) Lymphocytes (%) (Auto) 17.9 % (20.0-45.0) L Monocytes (%) (Auto) 10.2 % (1.0-10.0) H Eosinophils (%) (Auto) 6.8 % (0.0-3.0) H Basophils (%) (Auto) 1.6 % (0.0-2.0) Prothrombin Time 10.2 SEC (9.30-11.50) Prothromb Time International Ratio 1.0 (0.9-1.1) Activated Partial Thromboplast Time 25 SEC (23-33) Sodium Level 140 MMOL/L (136-145) Potassium Level 4.0 MMOL/L (3.5-5.1) Chloride Level 101 MMOL/L (98-107) Carbon Dioxide Level 30 MMOL/L (21-32) Anion Gap 9 mmol/L (5-15) Blood Urea Nitrogen 20 mg/dL (7-18) H Creatinine 1.1 MG/DL (0.55-1.30) Estimat Glomerular Filtration Rate mL/min (>60) Glucose Level 126 MG/DL (74-106) H Calcium Level 9.7 MG/DL (8.5-10.1) Total Bilirubin 0.6 MG/DL (0.2-1.0) Aspartate Amino Transf (AST/SGOT) 22 U/L (15-37) Alanine Aminotransferase (ALT/SGPT) 31 U/L (12-78) Alkaline Phosphatase 80 U/L (46-116) Total Creatine Kinase 34 U/L (26-308) Creatine Kinase MB 0.9 NG/ML (0.0-3.6) Creatine Kinase MB Relative Index 2.6 Troponin I 0.004 ng/mL (0.000-0.056) 0.000 ng/mL (0.000-0.056) Pro-B-Type Natriuretic Peptide 1581 pg/mL (0-125) H Total Protein 7.5 G/DL (6.4-8.2) Albumin 3.6 G/DL (3.4-5.0) Globulin 3.9 g/dL Albumin/Globulin Ratio 0.9 (1.0-2.7) L Lactic Acid Level 1.10 mmol/L (0.4-2.0) Digoxin Level < 0.2 NG/ML (0.9-2.0) L Histoplasma Antigen Pending Blastomyces Ab Immunodiffusion Pending Coccidioides Antibody (Comp Fix) Pending Cryptococcus Antigen Pending Test 05/03/19 06:20 05/03/19 10:08 05/03/19 10:22 White Blood Count 8.7 K/UL (4.8-10.8) Red Blood Count 4.55 M/UL (4.20-5.40) Hemoglobin 14.7 G/DL (12.0-16.0) Hematocrit 43.2 % (37.0-47.0) Mean Corpuscular Volume 95 FL (80-99) Mean Corpuscular Hemoglobin 32.3 PG (27.0-31.0) H Mean Corpuscular Hemoglobin Concent 33.9 G/DL (32.0-36.0) Red Cell Distribution Width 12.4 % (11.6-14.8) Platelet Count 227 K/UL (150-450) Mean Platelet Volume 7.6 FL (6.5-10.1) Neutrophils (%) (Auto) 61.7 % (45.0-75.0) Lymphocytes (%) (Auto) 18.1 % (20.0-45.0) L Monocytes (%) (Auto) 11.7 % (1.0-10.0) H Eosinophils (%) (Auto) 7.1 % (0.0-3.0) H Basophils (%) (Auto) 1.5 % (0.0-2.0) Sodium Level 140 MMOL/L (136-145) Potassium Level 3.9 MMOL/L (3.5-5.1) Chloride Level 99 MMOL/L (98-107) Carbon Dioxide Level 32 MMOL/L (21-32) Anion Gap 9 mmol/L (5-15) Blood Urea Nitrogen 20 mg/dL (7-18) H Creatinine 1.2 MG/DL (0.55-1.30) Estimat Glomerular Filtration Rate mL/min (>60) Glucose Level 116 MG/DL (74-106) H Hemoglobin A1c 6.2 % (4.3-6.0) H Calcium Level 9.3 MG/DL (8.5-10.1) Total Bilirubin 0.5 MG/DL (0.2-1.0) Aspartate Amino Transf (AST/SGOT) 20 U/L (15-37) Alanine Aminotransferase (ALT/SGPT) 30 U/L (12-78) Alkaline Phosphatase 71 U/L (46-116) Troponin I 0.000 ng/mL (0.000-0.056) Pending Pro-B-Type Natriuretic Peptide 1254 pg/mL (0-125) H Total Protein 7.1 G/DL (6.4-8.2) Albumin 3.2 G/DL (3.4-5.0) L Globulin 3.9 g/dL Albumin/Globulin Ratio 0.8 (1.0-2.7) L Triglycerides Level 195 MG/DL (30-150) H Cholesterol Level 235 MG/DL (< 200) H LDL Cholesterol 156 mg/dL (<100) H HDL Cholesterol 41 MG/DL (40-60) Cholesterol/HDL Ratio 5.7 (3.3-4.4) H Thyroid Stimulating Hormone (TSH) 5.368 uiU/mL (0.358-3.740) Arterial Blood pH 7.418 (7.350-7.450) Arterial Blood Partial Pressure CO2 46.0 mmHg (35.0-45.0) H Arterial Blood Partial Pressure O2 89.9 mmHg (75.0-100.0) Arterial Blood HCO3 29.0 mmol/L (22.0-26.0) H Arterial Blood Oxygen Saturation 96.8 % (95-100) Arterial Blood Base Excess 3.7 (-2-2) H Deric Test Positive D-Dimer Pending Free Thyroxine Pending Triiodothyonine (T3) Pending Free Triiodothyronine Pending Triiodothyronine (T3) Uptake Pending Fox Madrigal MD May 03, 2019 11:01
--- NOTE | 2019-05-03 11:15 | NUR ---
NURSE NOTES: Dr. Whyte made aware stat order for ABG resulted, D-dimer level of 1.92. No order given at this time. Will continue to monitor. Addendum: 05/03/19 at 1129 by AZEEM BALLESTEROS RN Per Dr. Whyte, STAT VQ scan, STAT venous duplex. Order noted, entered, carried out.
[2019-05-03] MEDS: HYDROcodone/Acetamin 5/325 tab ORAL PRN ×2 (11:46→23:07)
[2019-05-03 12:00] VITALS: BP 150/100
--- NOTE | 2019-05-03 12:00 | NUR ---
NURSE NOTES: Called ultrasound, nuclear med departments regarding STAT order. No answer, left voice message.
--- NOTE | 2019-05-03 13:36 | NUR ---
CASE MANAGEMENT: INITIAL REVIEW 73 YO F BHARGAV FROM HOME CC: DYSPNEA PMHx: HTN. A FIB. SI:HYPERTENSIVE URGENCY. SOB. T 98.4 HR 84 RR 18 B/P 166/114 SATS 94% ON RA BUN 20 GLU 126 BNP 1581 ABGs PCO2 46 HCO3 29 BE 3.7 IS: CT Chest Abdomen Pelvis w/Cont (IMPRESSION:1. No pulmonary embolus identified. 2. Ectasia of the ascending aorta measuring 4.1 cm in diameter. No aortic dissection) CXR (IMPRESSION: Left basilar opacity may represent combination of pleural effusion with atelectasis versus pneumonia. Pulmonary vasculature congestion) PATIENT ADMITTED TO TELE 05/02/2019 @ 1204 DCP: PATIENT TO BE DISCHARGED TO HOME ONCE MEDICALLY CLEARED. PLAN OF CARE: CT HEAD VENOUS DUPLEX NM VQ SCAN Addendum: 05/03/19 at 1909 by Suzan Ortiz CM INTERQUAL MET
[2019-05-03 16:00] VITALS: BP 136/92
--- NOTE | 2019-05-03 18:00 | NUR ---
NURSE NOTES: Called nuclear med second time regarding STAT order. No answer. Will continue to follow up.
--- NOTE | 2019-05-03 19:07 | NUR ---
HAND-OFF: Report given to SHELLY Tian.
--- NOTE | 2019-05-03 19:10 | Infectious Diseases Prog Note ---
Assessment/Plan Problems: (1) Pleural nodules Assessment & Plan: rule out fungal etiology , await serology , pulmonary eval is in progress (2) Pleural effusion Assessment & Plan: nonspecific , monitor clinically, too small for thoracentesis (3) SOB (shortness of breath) Assessment & Plan: rule out interstitial lungs disease with H/O living close by [place]. pulmonary is following Subjective Constitutional: Reports: fatigue Respiratory: Reports: shortness of breath, dry cough Neurologic: Reports: headache Allergies: Coded Allergies: LATEX (Verified Allergy, Unknown, 05/02/19) All Systems: reviewed and negative except above Objective Vital Signs Last 24 Hour Vital Signs Date Time Temp Pulse Resp B/P (MAP) Pulse Ox O2 Delivery O2 Flow Rate FiO2 05/03/19 16:00 103 05/03/19 16:00 97.7 65 18 136/92 (107) 93 05/03/19 12:00 92 05/03/19 12:00 98.4 88 18 150/100 (117) 96 05/03/19 09:00 Nasal Cannula 2.0 05/03/19 08:16 83 18 96 Nasal Cannula 2.0 28 05/03/19 08:15 96 Nasal Cannula 2.0 05/03/19 08:08 80 163/90 05/03/19 08:08 80 05/03/19 08:00 98.9 80 18 163/90 (114) 96 05/03/19 08:00 84 05/03/19 04:00 81 05/03/19 04:00 98.3 81 16 149/85 (106) 96 05/03/19 00:00 98.1 83 16 128/94 (105) 98 05/03/19 00:00 96 05/02/19 21:13 87 20 95 Room Air 21 05/02/19 21:00 Nasal Cannula 2.0 05/02/19 20:00 97.1 88 18 181/94 (123) 97 05/02/19 20:00 95 Height (Feet): 5 Height (Inches): 4.00 Weight (Pounds): 165 General Appearance: WD/WN, no acute distress HEENT: normocephalic, atraumatic, anicteric, mucous membranes moist, PERRL Respiratory/Chest: chest wall non-tender, lungs clear, no respiratory distress , no accessory muscle use, decreased breath sounds Cardiovascular: normal peripheral pulses, normal rate, regular rhythm, no gallop/murmur, no JVD Abdomen: normal bowel sounds, soft, non tender, no organomegaly, non distended , no mass, no scars Genitourinary: normal external genitalia Extremities: no cyanosis, no clubbing Skin: no rash, no lesions, no ulcers Neurologic/Psychiatric: suspect artist II-XII grossly normal, no motor/sensory deficits, alert, oriented x 3, responsive Lymphatic: no neck adenopathy, no groin adenopathy Musculoskeletal: normal muscle bulk, no effusion Laboratory Tests Test 05/02/19 21:00 05/02/19 21:37 05/03/19 06:20 05/03/19 10:08 Histoplasma Antigen Pending Troponin I 0.000 ng/mL (0.000-0.056) 0.000 ng/mL (0.000-0.056) Blastomyces Ab Immunodiffusion Pending Coccidioides Antibody (Comp Fix) Pending Cryptococcus Antigen Pending White Blood Count 8.7 K/UL (4.8-10.8) Red Blood Count 4.55 M/UL (4.20-5.40) Hemoglobin 14.7 G/DL (12.0-16.0) Hematocrit 43.2 % (37.0-47.0) Mean Corpuscular Volume 95 FL (80-99) Mean Corpuscular Hemoglobin 32.3 PG (27.0-31.0) H Mean Corpuscular Hemoglobin Concent 33.9 G/DL (32.0-36.0) Red Cell Distribution Width 12.4 % (11.6-14.8) Platelet Count 227 K/UL (150-450) Mean Platelet Volume 7.6 FL (6.5-10.1) Neutrophils (%) (Auto) 61.7 % (45.0-75.0) Lymphocytes (%) (Auto) 18.1 % (20.0-45.0) L Monocytes (%) (Auto) 11.7 % (1.0-10.0) H Eosinophils (%) (Auto) 7.1 % (0.0-3.0) H Basophils (%) (Auto) 1.5 % (0.0-2.0) Sodium Level 140 MMOL/L (136-145) Potassium Level 3.9 MMOL/L (3.5-5.1) Chloride Level 99 MMOL/L (98-107) Carbon Dioxide Level 32 MMOL/L (21-32) Anion Gap 9 mmol/L (5-15) Blood Urea Nitrogen 20 mg/dL (7-18) H Creatinine 1.2 MG/DL (0.55-1.30) Estimat Glomerular Filtration Rate mL/min (>60) Glucose Level 116 MG/DL (74-106) H Hemoglobin A1c 6.2 % (4.3-6.0) H Calcium Level 9.3 MG/DL (8.5-10.1) Total Bilirubin 0.5 MG/DL (0.2-1.0) Aspartate Amino Transf (AST/SGOT) 20 U/L (15-37) Alanine Aminotransferase (ALT/SGPT) 30 U/L (12-78) Alkaline Phosphatase 71 U/L (46-116) Pro-B-Type Natriuretic Peptide 1254 pg/mL (0-125) H Total Protein 7.1 G/DL (6.4-8.2) Albumin 3.2 G/DL (3.4-5.0) L Globulin 3.9 g/dL Albumin/Globulin Ratio 0.8 (1.0-2.7) L Triglycerides Level 195 MG/DL (30-150) H Cholesterol Level 235 MG/DL (< 200) H LDL Cholesterol 156 mg/dL (<100) H HDL Cholesterol 41 MG/DL (40-60) Cholesterol/HDL Ratio 5.7 (3.3-4.4) H Thyroid Stimulating Hormone (TSH) 5.368 uiU/mL (0.358-3.740) Arterial Blood pH 7.418 (7.350-7.450) Arterial Blood Partial Pressure CO2 46.0 mmHg (35.0-45.0) H Arterial Blood Partial Pressure O2 89.9 mmHg (75.0-100.0) Arterial Blood HCO3 29.0 mmol/L (22.0-26.0) H Arterial Blood Oxygen Saturation 96.8 % (95-100) Arterial Blood Base Excess 3.7 (-2-2) H Deric Test Positive Test 05/03/19 10:22 05/03/19 14:14 D-Dimer 1.92 mg/L FEU (0.00-0.49) H Free Thyroxine 0.97 NG/DL (0.76-1.46) Triiodothyonine (T3) Pending Free Triiodothyronine 3.0 pg/mL (2.3-4.2) Triiodothyronine (T3) Uptake Pending Troponin I 0.000 ng/mL (0.000-0.056) Current Medications Medications (Trade) Dose Ordered Sig/Felipe Route PRN Reason Start Time Stop Time Status Last Admin Dose Admin Acetaminophen (Tylenol) 650 mg Q6H PRN ORAL Mild Pain/Temp > 100.5 05/02/19 16:00 06/01/19 15:59 05/03/19 07:20 Acetaminophen/ Hydrocodone Bitart ([place] 5/325) 1 tab Q4H PRN ORAL Moderate Pain (Pain Scale 4-6) 05/03/19 11:45 05/10/19 11:44 05/03/19 11:46 Albuterol/ Ipratropium (Albuterol/ Ipratropium) 3 ml Q4H PRN HHN Shortness of Breath 05/02/19 15:15 05/07/19 15:14 Amlodipine Besylate (Norvasc) 5 mg BIDPRN PRN ORAL SBP > 155 05/02/19 21:45 06/01/19 21:44 Apixaban (Eliquis) 5 mg BID ORAL 05/03/19 09:00 06/02/19 08:59 05/03/19 17:31 Atorvastatin Calcium (Lipitor) 40 mg BEDTIME ORAL 05/03/19 21:00 06/02/19 20:59 Digoxin (Lanoxin) 0.125 mg DAILY ORAL 05/03/19 09:00 06/02/19 08:59 05/03/19 08:08 Furosemide (Lasix) 40 mg EVERY 12 HOURS IV 05/02/19 21:00 06/01/19 20:59 05/03/19 08:07 Iopamidol (Isovue-300 100ml) 100 ml NOW PRN INJ Radiology Procedure 05/02/19 11:45 Levothyroxine Sodium (Synthroid) 25 mcg DAILY@0630 ORAL 05/04/19 06:30 06/03/19 06:29 Metoprolol Succinate (Toprol XL) 37.5 mg DAILY ORAL 05/04/19 09:00 06/03/19 08:59 Nitroglycerin (Ntg) 0.4 mg Q5M PRN SL Prn Chest Pain 05/02/19 15:45 06/01/19 15:44 Pantoprazole (Protonix) 40 mg EVERY 12 HOURS ORAL 05/02/19 21:00 06/01/19 20:59 05/03/19 08:08 Zolpidem Tartrate (Ambien) 5 mg HSPRN PRN ORAL Insomnia 05/02/19 21:30 05/09/19 21:29 Carolyne Pinto M.D. May 03, 2019 19:10
--- NOTE | 2019-05-03 19:11 | NUR ---
NURSE NOTES: Report received from Aung Hartman RN. Pt is resting in bed in stable condition. Pt is AOx4. Pt is on 2L NC and breathing is even and unlabored. No acute distress noted. IV site is R hand #20g and is asymptomatic, patent, and intact. Bed is in lowest position with brake engaged, side rails up x2. Pt is independently ambulatory with steady gait. Friend is at bedside with patient. Call light and side table placed within reach. Will continue to monitor.
[2019-05-03 20:00] VITALS: BP 150/81
--- NOTE | 2019-05-03 20:24 | NUR ---
NURSE NOTES: STAT VQ scan ordered at 11:23 on 05/03. Per day shift RN, no one available to do scan. MD Whyte notified. Per MD, scan needs to be done today.
--- NOTE | 2019-05-03 20:26 | NUR ---
NURSE NOTES: Per CT, there is no one environmental sampler to do STAT VQ scan. CT to call registry to see if someone is available.
--- NOTE | 2019-05-03 20:50 | NUR ---
NURSE NOTES: Per CT, no one is available tonight to do VQ scan so earliest available time for scan to be done is AM. MD Whyte notified. Per , order CT angio of the chest and call once results are available.
[2019-05-03] MEDS ORDERED: Isovue-370 150ml vial INJ PRN (21:00)
[2019-05-03] MEDS ORDERED: Atorvastatin 20mg tab ORAL SCH (21:00)
--- NOTE | 2019-05-03 21:00 | NUR ---
NURSE NOTES: Order placed for STAT CTA of the chest per MD Whyte. CT notified. Pending new IV placement for test. Will update CT when new IV has been placed. Consent for contrast witnessed and obtained.
--- NOTE | 2019-05-03 22:41 | NUR ---
NURSE NOTES: Several nurses have been attempting to place appropriate IV access needed for CTA of chest. CN aware of situation. Message left for MD Whyte to notify. Will continue to attempt to place IV access.
[2019-05-04] VITALS: BP 144/78
--- NOTE | 2019-05-04 00:08 | NUR ---
NURSE NOTES: Multiple nurses have attempted IV access but have not been able to place IV. MD Whyte notified. Per MD, wait until morning to explore further options.
[2019-05-04 04:00] VITALS: BP 140/89
[2019-05-04 06:29] LABS: BASOPHILS % (AUTO) 1.5 % (0.0-2.0); EOSINOPHILS % (AUTO) 7.7 % (0.0-3.0); HEMATOCRIT 45.3 % (37.0-47.0); HEMOGLOBIN 15.3 G/DL (12.0-16.0); LYMPHOCYTES % (AUTO) 23.3 % (20.0-45.0); MEAN CORPUSCULAR VOLUME 96 FL (80-99); MONOCYTES % (AUTO) 11.2 % (1.0-10.0); NEUTROPHILS % (AUTO) 56.4 % (45.0-75.0); PLATELET COUNT 221 K/UL (150-450); RED BLOOD COUNT 4.74 M/UL (4.20-5.40); RED CELL DISTRIBUTION WIDTH 12.1 % (11.6-14.8)
[2019-05-04] MEDS: Levothyroxine 25mcg tab ORAL SCH (06:30)
--- NOTE | 2019-05-04 06:49 | NUR ---
NURSE NOTES: MD Cornoel notified of issues with obtaining IV access. Per , okay to place order for PICC line. Orders noted and carried out.
[2019-05-04] MEDS ORDERED: Lidocaine 1% Plain 30 ml INJ PRN (06:53)
[2019-05-04 06:58] LABS: ALANINE AMINOTRANSFERASE 28 U/L (12-78); ALBUMIN 3.2 G/DL (3.4-5.0); ALBUMIN/GLOBULIN RATIO 0.9 (1.0-2.7); ALKALINE PHOSPHATASE 69 U/L (46-116); ANION GAP 6 mmol/L (5-15); ASPARTATE AMINO TRANSFERASE 23 U/L (15-37); BILIRUBIN,TOTAL 0.7 MG/DL (0.2-1.0); BLOOD UREA NITROGEN 25 mg/dL (7-18); CARBON DIOXIDE 33 MMOL/L (21-32); CHLORIDE 99 MMOL/L (98-107); CREATININE 1.2 MG/DL (0.55-1.30); POTASSIUM 3.7 MMOL/L (3.5-5.1); SODIUM 138 MMOL/L (136-145)
[2019-05-04] MEDS ORDERED: Heparin1,000 units/500ml Premix(Conc:2 units/ml) IV PRN (07:00)
--- NOTE | 2019-05-04 07:35 | NUR ---
HAND-OFF: Report given to Brandt Gutierrez RN. Pt is resting in bed in stable condition. Endorsed plan of care.
--- NOTE | 2019-05-04 07:36 | NUR ---
NURSE NOTES: Received report from SHELLY Tian. The patient is sleeping on the bed without acute distress or shortness of breath. The patient's bed in the lowest position, call light in reach, and fall and aspiration precaution reinforced. Since she did not have IV access with multiple trials during previous shift, she will had PICC line placement today. Due to elevated d-dimer level, she will have CTA and VQ scan today. Will continue plan of care.
[2019-05-04 08:00] VITALS: BP 154/88
[2019-05-04] MEDS: Digoxin 0.125mg tab ORAL SCH (08:19)
[2019-05-04] MEDS: Eliquis 5mg tablet ORAL SCH ×2 (08:22→17:24)
--- NOTE | 2019-05-04 08:30 | NUR ---
NURSE NOTES: PICC line consent obtained and preperation completed. Morning meds given except IV meds since there is no IV access. Elliquis on hold prior to the procedure. Will continue plan of care.
[2019-05-04] MEDS ORDERED: Metoprolol Succinate XL 25mg tab ORAL SCH (09:00)
--- NOTE | 2019-05-04 09:30 | Consultation ---
DATE OF CONSULTATION: 05/02/2019 CARDIOLOGY CONSULTATION CONSULTING PHYSICIAN: Fox Madrigal M.D. REFERRING PHYSICIAN: Devon Coronel M.D. REASON FOR REFERRAL: Congestive heart failure and atrial fibrillation. HISTORY OF PRESENT ILLNESS: This is a 73-year-old female, whose information is directly obtained from the patient's chart as well as discussion with the patient herself as well as review of some of the records at [facility] where the patient has had received recently most of her care. In either case, she presented to the hospital because of increasing shortness of breath that had been going on. Follows at [facility] with Dr. Shelton for sometime now. She has had episodes of atrial fibrillation. She has had three separate cardioversion attempts. The first two lasted approximately one year. In August last year, she had another attempt that was effective with 200 joules, however, the patient according to herself was only in the normal rhythm for approximately two to three days. After that, she has been irregular since then. She has had medications including amiodarone, digoxin, and metoprolol for her heart rate control and is having increasing amounts of shortness of breath. Sometimes she feels panicky because of the shortness of breath. She is not able to lie down flat at all because of the shortness of breath and she has shortness of breath on exertion, worse in the past month. In terms of the activity, she is able to do less now without any shortness of breath and it was not a few months ago. She really has not had any pain although she rarely gets pain with exertion, but not all the time. These episodes of shortness of breath wake her up in the middle of the night and occasional palpitations, occasional dizziness, not all the time with dizziness on standing. PAST MEDICAL HISTORY: Documented in the [facility] system as of course paroxysmal episodes of atrial fibrillation, panic attacks, and chickenpox. She does have history of hypertension, obesity, history of hysterectomy, anxiety, history of CVA in 2004, eczema, ankle fracture, pericardial effusion status post drainage, pleural effusion status post drainage on three separate occasions, questionable history of appendectomy not clear. The patient has sleep apnea and has not been using her CPAP for the past two years. ALLERGIES: ARBs cause her facial swelling, Pradaxa causes her sweating and anorexia, sorbitol, and . MEDICATIONS: Her medications previously have included Eliquis 5 mg, she states Lipitor , vitamin D, CoQ10, Lexapro 10, Lasix 40 twice a day, , losartan 100 mg a day, meloxicam, metoprolol, potassium, Maxalt as well. FAMILY HISTORY: Positive for father at the age of 80s, mother also in the 80s, and she lost one sister at age 11 months. SOCIAL HISTORY: She was born in [place]. She is retired. She used to smoke some 30 years ago. Occasional alcoholic red wine drinks per day. REVIEW OF SYSTEMS: GASTROINTESTINAL: Negative. GENITOURINARY: Negative. PULMONARY: Positive for coughing. CONSTITUTIONAL: She has had some night sweats and fevers. Last fever is 101 approximately two weeks ago, but not since then. NEUROLOGIC: She has occasional blurred vision. PHYSICAL EXAMINATION: GENERAL: Shows to be morbidly obese female, in no respiratory distress. NECK: Supple. No jugular venous distention. LUNGS: Minimal crackles noted at the base on the left side. CARDIAC: Irregularly irregular. Not tachycardic. No heaves, thrills, or gallops noted. ABDOMEN: Soft, nontender, obese. Positive bowel sounds. EXTREMITIES: There is trace edema of the lower extremities. LABORATORY AND DIAGNOSTIC DATA: Her white count is 18, hemoglobin 14.7, and platelet count of 227,000. Blood gas, pH of 7.48, pCO2 of 46, pO2 of 90, bicarbonate of 29, sodium is 140, potassium 3.9, chloride 99, bicarbonate 32, BUN 20, creatinine 1.2, and glucose of 116 with A1c of 6.2. ProBNP was only 1200. Troponin was negative. Albumin of 3.2. Total cholesterol is 235 with HDL of 41 and LDL of 156. TSH of 5.36. Coags, INR 1 and PTT of 25. D-dimer is pending at this time. Digoxin level less than 0.2. She did undergo CT scan of the chest and abdomen, left-sided pleural thickening and trace effusion, nodular pleural thickening posteriorly also, nonspecific prominent mediastinal and hilar lymph nodes, and atherosclerotic change in the aorta with the aorta measuring at 4.1, degenerative changes in the spine with mild cardiomegaly. No significant pleural effusion is identified. She has had an echocardiogram. EKG shows atrial fibrillation, ventricular response in the 80s. No ST or T-wave abnormalities. ASSESSMENT AND PLAN: 1. Permanent atrial fibrillation with history of failed third cardioversion attempt in August 2018. 2. History of pericardial effusion, status post drainage. 3. History of pleural effusions, status post drainage on three separate occasions. 4. Morbid obesity. 5. Obstructive sleep apnea, noncompliant with CPAP. Dr. Coronel, this patient was seen in cardiac consultation. She seems pretty clear at the present time and I think her congestive heart failure probably already responded to the therapy. In light of the fact that she has permanent atrial fibrillation states she has not been back in sinus rhythm since the failure of her last cardioversion, I am not sure if amiodarone is appropriate to take in terms of benefits versus potential risk of side effects and I would prefer that she discontinue amiodarone at this time. It is possible that her heart rate may eventually increase once she is off the amiodarone after 2 to 3 weeks and she may require higher dose of beta-blockers. She is on diuretics at home twice a day, which she should continue. Sometimes difficult to tell whether her symptoms are anxiety related or heart failure. She seems to think that when she has heart failure, she has fullness and squeezing in her lungs and it maybe easier for her to take extra doses of diuretics for two to three days to see she will get better before coming into the emergency room. She was told to follow up although she does not want to follow with Dr. Shelton or Dr. Ramirez. She should be considered for some medication for anxiety long-term and echocardiogram has been ordered and pending at this time. Her heart rate is relatively well controlled. Her usual medications should be continued including medication for stroke prevention, Eliquis, that she is taking. Her lipids are elevated so she should be considered for a higher dose of Lipitor. Her Lipitor at this time is 20 mg. Once she is off the amiodarone that she may not require doses of thyroid either as that may have effected and I am assuming based on her own words that she is actually taking the amiodarone as she is telling me she is. long-term and her dose of metoprolol may need to be increased, adjusted in the future and of her other medication may need to be adjusted as well. Fox Madrigal M.D. DR: YOSHI JOB#: [id number] CC:
--- NOTE | 2019-05-04 09:40 | NUR ---
NURSE NOTES: The patient is going to PICC line procedure. Consent confirmed. The patient has been stable without acute distress or shortness of breath. Off tele order initiated. Clarified with Dr. Whyte that the patient will only do VQ scan but not CT of anigo due to elevated BUN. Will carry out the order.
--- NOTE | 2019-05-04 10:40 | NUR ---
NURSE NOTES: The patient went down again for VQ scan and CT of head s/p PICC line placement per order. Injection of Contrast consent obtained and confirmed. Off tele order initiated. Will continue to monitor the patient as soon as she comes back.
--- NOTE | 2019-05-04 11:38 | Diagnostic Imaging Report ---
Indication: Headache Technique: Contiguous 5 mm thick transaxial imaging of the head obtained in a Siemens Sensation [address] scanner. Soft tissue and bone windows generated. Automatic Exposure Control was utilized. Total Dose length Product (DLP): 1362.[address] Dose Index Volume (CTDIvol): 70.38 mGy Comparison: none Findings: There is mild prominence of the ventricles, basal cisterns, and cerebral sulci consistent with atrophy. Mild, nonspecific, white matter hypoattenuation is noted throughout the brain consistent with chronic small vessel disease. There is no midline shift, edema, acute hemorrhage, mass effect, or abnormal extra-axial fluid collections. Bones are unremarkable. Impression: No acute intracranial bleed, mass effect or edema. Mild atrophy of the brain. Nonspecific white matter hypoattenuation probably due to chronic small vessel disease. The CT scanner at [facility] is accredited by the [employer] and the scans are performed using dose optimization techniques as appropriate to a performed exam including Automatic Exposure control.
--- NOTE | 2019-05-04 11:48 | NUR ---
NM Lung Perfusion complete. Pt attempted but could not tolerate lung ventilation due to panic attack.
[2019-05-04 12:00] VITALS: BP_SYST 130; BP_SYST 166; BP_DIAS 77; BP_DIAS 78
--- NOTE | 2019-05-04 12:04 | Pulmonology Progress Note ---
Assessment/Plan Problems: (1) SOB (shortness of breath) (2) Pleural nodules (3) Atrial fibrillation (4) Pleural effusion (5) Hypertensive urgency Assessment/Plan ASSESSMENT: * SOB, likely multifactorial 2/2 CHF/DD, anxiety, obesity, ? OHV/OSH * CATES * DAYLIN not compliant with CPAP * Old granulomatous disease * L pleural thickening and scarring, ? sequelae of old infection, stable compared to chest cuts of CT A/P [facility] 06/2017 * Obesity * Elevated D-dimer * CHF with DD * AF S/P failed ablation x 3 in the past * Hypothyroidism * HTN, HL * Amiodarone usage but no e/o ILD on CT * Elevated TSH PLAN: * Optimize pulmonary hygiene/mobilize as tolerated * PRN O2 * PRN HHN's * Start CPAP 10 cm H2O qHS * F/U serologies as ordered by ID * Consider outpatient PET/CT * Monitor volumes and renal function, cautious diuresis as able * F/U final TTE * F/U duplex and VQ * F/U TFT's * DVT Px: Eliquis * FC Subjective Allergies: Coded Allergies: LATEX (Verified Allergy, Unknown, 05/02/19) Subjective AFVSS O2 needs stable D-dimer elevated went for VQ unable to do ventilation No change in SOB, no change in cough, some wheezing, no FC Endorses DAYLIN, states uses CPAP twice weekly Objective Last 24 Hour Vital Signs Date Time Temp Pulse Resp B/P (MAP) Pulse Ox O2 Delivery O2 Flow Rate FiO2 05/04/19 09:00 Nasal Cannula 2.0 05/04/19 08:20 83 154/88 05/04/19 08:19 83 05/04/19 08:15 97 Nasal Cannula 3.0 32 05/04/19 08:15 71 18 97 Nasal Cannula 3.0 32 05/04/19 08:00 80 05/04/19 08:00 98.3 83 20 154/88 (110) 96 05/04/19 04:00 72 05/04/19 04:00 98.5 82 19 140/89 (106) 99 05/04/19 00:00 87 05/04/19 00:00 98.6 83 18 144/78 (100) 96 05/03/19 21:00 Nasal Cannula 2.0 05/03/19 20:12 96 Nasal Cannula 2.0 28 05/03/19 20:12 89 18 96 Nasal Cannula 2.0 28 05/03/19 20:00 77 05/03/19 20:00 98.5 87 19 150/81 (104) 96 05/03/19 16:00 103 05/03/19 16:00 97.7 65 18 136/92 (107) 93 Intake and Output 05/03/19 05/04/19 19:00 07:00 Intake Total 860 ml 480 ml Balance 860 ml 480 ml Intake Oral 860 ml 480 ml # Voids 4 2 General Appearance: WD/WN, no acute distress, other HEENT: normocephalic, atraumatic, anicteric, mucous membranes moist Respiratory/Chest: chest wall non-tender, rhonchi Cardiovascular: normal peripheral pulses, normal rate, regular rhythm Abdomen: normal bowel sounds, soft, non tender, no organomegaly, non distended , no mass Extremities: no cyanosis, no clubbing, no edema Laboratory Tests 05/03/19 14:14: Troponin I 0.000 05/04/19 05:10: Prothrombin Time 10.5, Prothromb Time International Ratio 1.0, Activated Partial Thromboplast Time 27 05/04/19 05:40: White Blood Count 8.0, Red Blood Count 4.74, Hemoglobin 15.3, Hematocrit 45.3, Mean Corpuscular Volume 96, Mean Corpuscular Hemoglobin 32.4H, Mean Corpuscular Hemoglobin Concent 33.9, Red Cell Distribution Width 12.1, Platelet Count 221, Mean Platelet Volume 7.2, Neutrophils (%) (Auto) 56.4, Lymphocytes (%) (Auto) 23.3, Monocytes (%) (Auto) 11.2H, Eosinophils (%) (Auto) 7.7H, Basophils (%) ( Auto) 1.5, Sodium Level 138, Potassium Level 3.7, Chloride Level 99, Carbon Dioxide Level 33H, Anion Gap 6, Blood Urea Nitrogen 25H, Creatinine 1.2, Estimat Glomerular Filtration Rate , Glucose Level 110H, Calcium Level 9.0, Total Bilirubin 0.7, Aspartate Amino Transf (AST/SGOT) 23, Alanine Aminotransferase (ALT/SGPT) 28, Alkaline Phosphatase 69, Total Protein 6.9, Albumin 3.2L, Globulin 3.7, Albumin/Globulin Ratio 0.9L Current Medications Medications (Trade) Dose Ordered Sig/Felipe Route PRN Reason Start Time Stop Time Status Last Admin Dose Admin Acetaminophen (Tylenol) 650 mg Q6H PRN ORAL Mild Pain/Temp > 100.5 05/02/19 16:00 06/01/19 15:59 05/03/19 07:20 Acetaminophen/ Hydrocodone Bitart ([place] 5/325) 1 tab Q4H PRN ORAL Moderate Pain (Pain Scale 4-6) 05/03/19 11:45 05/10/19 11:44 05/03/19 23:07 Albuterol/ Ipratropium (Albuterol/ Ipratropium) 3 ml Q4H PRN HHN Shortness of Breath 05/02/19 15:15 05/07/19 15:14 Amlodipine Besylate (Norvasc) 5 mg BIDPRN PRN ORAL SBP > 155 05/02/19 21:45 06/01/19 21:44 Apixaban (Eliquis) 5 mg BID ORAL 05/03/19 09:00 06/02/19 08:59 05/03/19 17:31 Atorvastatin Calcium (Lipitor) 40 mg BEDTIME ORAL 05/03/19 21:00 06/02/19 20:59 05/03/19 21:19 Chlorhexidine Gluconate (Anastasia-Hex 2%) 1 applic DAILY@2000 TOPIC 05/04/19 20:00 06/03/19 19:59 Digoxin (Lanoxin) 0.125 mg DAILY ORAL 05/03/19 09:00 06/02/19 08:59 05/04/19 08:19 Furosemide (Lasix) 40 mg EVERY 12 HOURS IV 05/02/19 21:00 06/01/19 20:59 05/03/19 08:07 Heparin Sodium/ Sodium Chloride (Heparin 1000 units/500ml Premix) 1,000 unit ONCE PRN IV PICC 05/04/19 07:00 05/04/19 23:59 Iopamidol (Isovue-370 150ml) 150 ml NOW PRN INJ Radiology Procedure 05/03/19 21:00 05/05/19 20:54 Levothyroxine Sodium (Synthroid) 25 mcg DAILY@0630 ORAL 05/04/19 06:30 06/03/19 06:29 Lidocaine HCl (Xylocaine 1% 30ml) 30 ml ONCE PRN INJ PICC 05/04/19 06:53 05/04/19 23:59 Metoprolol Succinate (Toprol XL) 37.5 mg DAILY ORAL 05/04/19 09:00 06/03/19 08:59 05/04/19 08:20 Nitroglycerin (Ntg) 0.4 mg Q5M PRN SL Prn Chest Pain 05/02/19 15:45 06/01/19 15:44 Pantoprazole (Protonix) 40 mg EVERY 12 HOURS ORAL 05/02/19 21:00 06/01/19 20:59 05/04/19 08:19 Zolpidem Tartrate (Ambien) 5 mg HSPRN PRN ORAL Insomnia 05/02/19 21:30 05/09/19 21:29 Dinesh Whyte MD May 04, 2019 12:04
--- NOTE | 2019-05-04 12:36 | Diagnostic Imaging Report ---
Indication: Chest pain Technique: A ventilation/perfusion scan was performed. Ventilation could not be performed. Perfusion was performed with 4.5 mCi of technetium 99m-MAA injected intravenously. Multiple side by side projections obtained. Findings: Perfusion is heterogeneous especially within the left lung with areas of segmental perfusion defect involving both upper and lower lobes. We do not know if the perfusion defects are matched or mismatched. There is considerable parenchymal disease within portions of the left lung (as demonstrated on CT chest 05/02/2019) that may account for this. The right lung appears relatively clear. Impression: Intermediate probability for pulmonary embolus.
--- NOTE | 2019-05-04 13:14 | Diagnostic Imaging Report ---
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 The left upper extremity was prepped with alcohol. All elements of maximal sterile barrier technique were followed including usage of a cap, mask, sterile gown, sterile gloves, hand hygiene and a large sterile sheet. Sonographic evaluation of the upper extremity was performed demonstrating a patent and compressible basilic vein. Access was obtained under real-time ultrasound guidance (with utilization of sterile gel and sterile probe cover) and digital image was saved and archived. An .018 wire was introduced. Needle exchanged for a 5 Portuguese peel-away sheath. Measurements were obtained. A 5 Portuguese dual-lumen Power PICC line catheter was cut to 45 cm and introduced over the wire. Peel-away sheath and wire were removed.Catheter was secured to the skin using 2-0 Prolene suture. Both ports aspirate and flush easily. A single fluoroscopic image shows the distal tip in the superior vena cava. Total fluoroscopic time 16.7 seconds. Impression: Successful placement of an upper extremity PICC line catheter
--- NOTE | 2019-05-04 13:19 | NUR ---
NURSE NOTES: The patient is safely back to the unit. The patient is stable without acute distress or shortness of breath. CT of head, VQ scan, and Venous duplex result notified to Dr. Coronel and Dr. Whyte. Will continue to monitor the patient. Will carry out the order as soon as receives it.
--- NOTE | 2019-05-04 13:21 | NUR ---
CASE MANAGEMENT:REVIEW 05/04/19 SI: AFIB. PLEURAL EFFUSION INTERMEDIATE PROBABILITY OF PULMONARY EMBOLI 97.3 69 20 130/78 97% ON 2L/NC IS: TOPROL XL PO QD DIGOXIN PO QD ELIQUIS PO BID IV LASIX Q12 PROTONIX PO Q12 : TELEMETRY STATUS DCP: FROM HOME
--- NOTE | 2019-05-04 13:30 | NUR ---
NURSE NOTES: Per Dr. Whyte, CT angio of chest stat to rule out PE. Will carry out the order as soon as possible. Will continue to monitor the patient.
--- NOTE | 2019-05-04 13:43 | General Progress Note ---
Assessment/Plan Assessment/Plan: S: I am ok O: seems comfortable, lying on the bed PHYSICAL EXAMINATION: HEAD AND NECK: Atraumatic, normocephalic.CHEST: Clear to auscultation.HEART: S1, S2. Regular rate and rhythm. ABDOMEN: Soft. No organomegaly.MUSCULOSKELETAL: Positive for 2+ pitting edema in the bilateral ankles. NEUROLOGIC: Awake, alert, oriented x3. Imaging: completed echo ASSESSMENT AND PLAN: 1. Congestive heart failure exacerbation, Diastolic Type. 2. Healthcare-associated pneumonia, less likely. 3. Atrial fibrillation with controlled rate. 4. Hypertension. 5. Abnormal blood sugar. 6. GI and DVT prophylaxes. Plan: Notes from cardiology and ID reviewed will continue with optimization of medications once clear by Pulmonary may followup as o/p Subjective Allergies: Coded Allergies: LATEX (Verified Allergy, Unknown, 05/02/19) Objective Last 24 Hour Vital Signs Date Time Temp Pulse Resp B/P (MAP) Pulse Ox O2 Delivery O2 Flow Rate FiO2 05/04/19 12:00 97.3 69 20 130/78 (95) 97 05/04/19 12:00 81 05/04/19 09:00 Nasal Cannula 2.0 05/04/19 08:20 83 154/88 05/04/19 08:19 83 05/04/19 08:15 97 Nasal Cannula 3.0 32 05/04/19 08:15 71 18 97 Nasal Cannula 3.0 32 05/04/19 08:00 80 05/04/19 08:00 98.3 83 20 154/88 (110) 96 05/04/19 04:00 72 05/04/19 04:00 98.5 82 19 140/89 (106) 99 05/04/19 00:00 87 05/04/19 00:00 98.6 83 18 144/78 (100) 96 05/03/19 21:00 Nasal Cannula 2.0 05/03/19 20:12 96 Nasal Cannula 2.0 28 05/03/19 20:12 89 18 96 Nasal Cannula 2.0 28 05/03/19 20:00 77 05/03/19 20:00 98.5 87 19 150/81 (104) 96 05/03/19 16:00 103 05/03/19 16:00 97.7 65 18 136/92 (107) 93 Intake and Output 05/03/19 05/04/19 19:00 07:00 Intake Total 860 ml 480 ml Balance 860 ml 480 ml Intake Oral 860 ml 480 ml # Voids 4 2 Laboratory Tests 05/03/19 14:14: Troponin I 0.000 05/04/19 05:10: Prothrombin Time 10.5, Prothromb Time International Ratio 1.0, Activated Partial Thromboplast Time 27 05/04/19 05:40: White Blood Count 8.0, Red Blood Count 4.74, Hemoglobin 15.3, Hematocrit 45.3, Mean Corpuscular Volume 96, Mean Corpuscular Hemoglobin 32.4H, Mean Corpuscular Hemoglobin Concent 33.9, Red Cell Distribution Width 12.1, Platelet Count 221, Mean Platelet Volume 7.2, Neutrophils (%) (Auto) 56.4, Lymphocytes (%) (Auto) 23.3, Monocytes (%) (Auto) 11.2H, Eosinophils (%) (Auto) 7.7H, Basophils (%) ( Auto) 1.5, Sodium Level 138, Potassium Level 3.7, Chloride Level 99, Carbon Dioxide Level 33H, Anion Gap 6, Blood Urea Nitrogen 25H, Creatinine 1.2, Estimat Glomerular Filtration Rate , Glucose Level 110H, Calcium Level 9.0, Total Bilirubin 0.7, Aspartate Amino Transf (AST/SGOT) 23, Alanine Aminotransferase (ALT/SGPT) 28, Alkaline Phosphatase 69, Total Protein 6.9, Albumin 3.2L, Globulin 3.7, Albumin/Globulin Ratio 0.9L Height (Feet): 5 Height (Inches): 4.00 Weight (Pounds): 165 Devon Coronel MD May 04, 2019 13:43
--- NOTE | 2019-05-04 13:45 | NUR ---
NURSE NOTES: Dr. Whyte want to cancel CTA of chest since similar testing was done [address] Coronel, he will communicate with Dr. Whyte for further care.
--- NOTE | 2019-05-04 15:38 | Infectious Diseases Prog Note ---
Assessment/Plan Problems: (1) Pleural nodules Assessment & Plan: rule out fungal etiology , await serology , pulmonary eval is in progress (2) Pleural effusion Assessment & Plan: nonspecific , monitor clinically, too small for thoracentesis (3) SOB (shortness of breath) Assessment & Plan: suspect interstitial lungs disease with H/O living close by [employer] [place]. CTA of the lungs was negative for PE , pulmonary is following Subjective Constitutional: Reports: no symptoms HEENT: Reports: no symptoms Respiratory: Reports: shortness of breath, dry cough Breasts: Reports: no symptoms Cardiovascular: Reports: no symptoms Gastrointestinal/Abdominal: Reports: no symptoms Genitourinary: Reports: no symptoms Neurologic: Reports: no symptoms Psychiatric: Reports: anxiety Skin: Reports: no symptoms Endocrine: Reports: no symptoms Hematologic: Reports: no symptoms Musculoskeletal: Reports: no symptoms Allergies: Coded Allergies: LATEX (Verified Allergy, Unknown, 05/02/19) Objective Vital Signs Last 24 Hour Vital Signs Date Time Temp Pulse Resp B/P (MAP) Pulse Ox O2 Delivery O2 Flow Rate FiO2 05/04/19 12:00 97.3 69 20 130/78 (95) 97 05/04/19 12:00 81 05/04/19 09:00 Nasal Cannula 2.0 05/04/19 08:20 83 154/88 05/04/19 08:19 83 05/04/19 08:15 97 Nasal Cannula 3.0 32 05/04/19 08:15 71 18 97 Nasal Cannula 3.0 32 05/04/19 08:00 80 05/04/19 08:00 98.3 83 20 154/88 (110) 96 05/04/19 04:00 72 05/04/19 04:00 98.5 82 19 140/89 (106) 99 05/04/19 00:00 87 05/04/19 00:00 98.6 83 18 144/78 (100) 96 05/03/19 21:00 Nasal Cannula 2.0 05/03/19 20:12 96 Nasal Cannula 2.0 28 05/03/19 20:12 89 18 96 Nasal Cannula 2.0 28 05/03/19 20:00 77 05/03/19 20:00 98.5 87 19 150/81 (104) 96 05/03/19 16:00 103 05/03/19 16:00 97.7 65 18 136/92 (107) 93 Height (Feet): 5 Height (Inches): 4.00 Weight (Pounds): 165 General Appearance: WD/WN, no acute distress HEENT: normocephalic, atraumatic, anicteric, mucous membranes moist, PERRL Respiratory/Chest: chest wall non-tender, no respiratory distress, no accessory muscle use, decreased breath sounds Cardiovascular: normal peripheral pulses, normal rate, regular rhythm, no gallop/murmur, no JVD Abdomen: normal bowel sounds, soft, non tender, no organomegaly, non distended , no mass, no scars Genitourinary: normal external genitalia Extremities: no cyanosis, no clubbing Skin: no rash, no lesions, no ulcers Neurologic/Psychiatric: 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, no motor/sensory deficits, alert, responsive Lymphatic: no neck adenopathy, no groin adenopathy Musculoskeletal: normal muscle bulk, no effusion Laboratory Tests Test 05/04/19 05:10 05/04/19 05:40 Prothrombin Time 10.5 SEC (9.30-11.50) Prothromb Time International Ratio 1.0 (0.9-1.1) Activated Partial Thromboplast Time 27 SEC (23-33) White Blood Count 8.0 K/UL (4.8-10.8) Red Blood Count 4.74 M/UL (4.20-5.40) Hemoglobin 15.3 G/DL (12.0-16.0) Hematocrit 45.3 % (37.0-47.0) Mean Corpuscular Volume 96 FL (80-99) Mean Corpuscular Hemoglobin 32.4 PG (27.0-31.0) H Mean Corpuscular Hemoglobin Concent 33.9 G/DL (32.0-36.0) Red Cell Distribution Width 12.1 % (11.6-14.8) Platelet Count 221 K/UL (150-450) Mean Platelet Volume 7.2 FL (6.5-10.1) Neutrophils (%) (Auto) 56.4 % (45.0-75.0) Lymphocytes (%) (Auto) 23.3 % (20.0-45.0) Monocytes (%) (Auto) 11.2 % (1.0-10.0) H Eosinophils (%) (Auto) 7.7 % (0.0-3.0) H Basophils (%) (Auto) 1.5 % (0.0-2.0) Sodium Level 138 MMOL/L (136-145) Potassium Level 3.7 MMOL/L (3.5-5.1) Chloride Level 99 MMOL/L (98-107) Carbon Dioxide Level 33 MMOL/L (21-32) H Anion Gap 6 mmol/L (5-15) Blood Urea Nitrogen 25 mg/dL (7-18) H Creatinine 1.2 MG/DL (0.55-1.30) Estimat Glomerular Filtration Rate mL/min (>60) Glucose Level 110 MG/DL (74-106) H Calcium Level 9.0 MG/DL (8.5-10.1) Total Bilirubin 0.7 MG/DL (0.2-1.0) Aspartate Amino Transf (AST/SGOT) 23 U/L (15-37) Alanine Aminotransferase (ALT/SGPT) 28 U/L (12-78) Alkaline Phosphatase 69 U/L (46-116) Total Protein 6.9 G/DL (6.4-8.2) Albumin 3.2 G/DL (3.4-5.0) L Globulin 3.7 g/dL Albumin/Globulin Ratio 0.9 (1.0-2.7) L Current Medications Medications (Trade) Dose Ordered Sig/Felipe Route PRN Reason Start Time Stop Time Status Last Admin Dose Admin Acetaminophen (Tylenol) 650 mg Q6H PRN ORAL Mild Pain/Temp > 100.5 05/02/19 16:00 06/01/19 15:59 05/03/19 07:20 Acetaminophen/ Hydrocodone Bitart ([place] 5/325) 1 tab Q4H PRN ORAL Moderate Pain (Pain Scale 4-6) 05/03/19 11:45 05/10/19 11:44 05/03/19 23:07 Albuterol/ Ipratropium (Albuterol/ Ipratropium) 3 ml Q4H PRN HHN Shortness of Breath 05/02/19 15:15 05/07/19 15:14 Amlodipine Besylate (Norvasc) 5 mg BIDPRN PRN ORAL SBP > 155 05/02/19 21:45 06/01/19 21:44 Apixaban (Eliquis) 5 mg BID ORAL 05/03/19 09:00 06/02/19 08:59 05/03/19 17:31 Atorvastatin Calcium (Lipitor) 40 mg BEDTIME ORAL 05/03/19 21:00 06/02/19 20:59 05/03/19 21:19 Chlorhexidine Gluconate (Anastasia-Hex 2%) 1 applic DAILY@2000 TOPIC 05/04/19 20:00 06/03/19 19:59 Digoxin (Lanoxin) 0.125 mg DAILY ORAL 05/03/19 09:00 06/02/19 08:59 05/04/19 08:19 Furosemide (Lasix) 40 mg EVERY 12 HOURS IV 05/02/19 21:00 06/01/19 20:59 05/03/19 08:07 Heparin Sodium/ Sodium Chloride (Heparin 1000 units/500ml Premix) 1,000 unit ONCE PRN IV PICC 05/04/19 07:00 05/04/19 23:59 Iopamidol (Isovue-370 150ml) 150 ml NOW PRN INJ Radiology Procedure 05/03/19 21:00 05/05/19 20:54 Levothyroxine Sodium (Synthroid) 25 mcg DAILY@0630 ORAL 05/04/19 06:30 06/03/19 06:29 Lidocaine HCl (Xylocaine 1% 30ml) 30 ml ONCE PRN INJ PICC 05/04/19 06:53 05/04/19 23:59 Metoprolol Succinate (Toprol XL) 37.5 mg DAILY ORAL 05/04/19 09:00 06/03/19 08:59 05/04/19 08:20 Nitroglycerin (Ntg) 0.4 mg Q5M PRN SL Prn Chest Pain 05/02/19 15:45 06/01/19 15:44 Pantoprazole (Protonix) 40 mg EVERY 12 HOURS ORAL 05/02/19 21:00 06/01/19 20:59 05/04/19 08:19 Zolpidem Tartrate (Ambien) 5 mg HSPRN PRN ORAL Insomnia 05/02/19 21:30 05/09/19 21:29 Carolyne Pinto M.D. May 04, 2019 15:38
[2019-05-04 16:00] VITALS: BP 116/79
--- NOTE | 2019-05-04 16:00 | NUR ---
NURSE NOTES: Notified to Dr. Madrigal that the patient's pulse has been 70-80s with a-fib or a-flutter during the shift but changed into 40-60s intermittently. Per Dr. Madrigal, continue monitor the patient and adjust Metoprolol to 25mg QD. Will carry out the order.
--- NOTE | 2019-05-04 17:23 | Cardiology Progress Note ---
Assessment/Plan Assessment/Plan 1. Permanent atrial fibrillation with history of failed third cardioversion attempt in August 2018. 2. History of pericardial effusion, status post drainage. 3. History of pleural effusions, status post drainage on three separate occasions. 4. Morbid obesity. 5. Obstructive sleep apnea, noncompliant with CPAP. 6. orthostatic symtoms post diuretic 05/04 has dizziness dc iv lasix hold po in am if orthostatic midl nish will go badk to 25 mg of toprol xl dig level in am keep off amiod she may not be following up with waters , she may fu with me if she wishes in future i will be away for the next [address] harris with cover me Subjective Cardiovascular: Reports: lightheadedness; Denies: chest pain Respiratory: Denies: shortness of breath Gastrointestinal/Abdominal: Denies: abdominal pain Genitourinary: Denies: burning Objective Last 24 Hour Vital Signs Date Time Temp Pulse Resp B/P (MAP) Pulse Ox O2 Delivery O2 Flow Rate FiO2 05/04/19 16:00 97.5 70 20 116/79 (91) 97 05/04/19 16:00 77 05/04/19 12:00 97.3 69 20 130/78 (95) 97 05/04/19 12:00 81 05/04/19 09:00 Nasal Cannula 2.0 05/04/19 08:20 83 154/88 05/04/19 08:19 83 05/04/19 08:15 97 Nasal Cannula 3.0 32 05/04/19 08:15 71 18 97 Nasal Cannula 3.0 32 05/04/19 08:00 80 05/04/19 08:00 98.3 83 20 154/88 (110) 96 05/04/19 04:00 72 05/04/19 04:00 98.5 82 19 140/89 (106) 99 05/04/19 00:00 87 05/04/19 00:00 98.6 83 18 144/78 (100) 96 05/03/19 21:00 Nasal Cannula 2.0 05/03/19 20:12 96 Nasal Cannula 2.0 28 05/03/19 20:12 89 18 96 Nasal Cannula 2.0 28 05/03/19 20:00 77 05/03/19 20:00 98.5 87 19 150/81 (104) 96 General Appearance: no apparent distress, alert Neck: supple Cardiovascular: normal rate Respiratory/Chest: lungs clear Extremities: no swelling Intake and Output 05/03/19 05/04/19 19:00 07:00 Intake Total 860 ml 480 ml Balance 860 ml 480 ml Intake Oral 860 ml 480 ml # Voids 4 2 Laboratory Tests Test 05/04/19 05:10 05/04/19 05:40 Prothrombin Time 10.5 SEC (9.30-11.50) Prothromb Time International Ratio 1.0 (0.9-1.1) Activated Partial Thromboplast Time 27 SEC (23-33) White Blood Count 8.0 K/UL (4.8-10.8) Red Blood Count 4.74 M/UL (4.20-5.40) Hemoglobin 15.3 G/DL (12.0-16.0) Hematocrit 45.3 % (37.0-47.0) Mean Corpuscular Volume 96 FL (80-99) Mean Corpuscular Hemoglobin 32.4 PG (27.0-31.0) H Mean Corpuscular Hemoglobin Concent 33.9 G/DL (32.0-36.0) Red Cell Distribution Width 12.1 % (11.6-14.8) Platelet Count 221 K/UL (150-450) Mean Platelet Volume 7.2 FL (6.5-10.1) Neutrophils (%) (Auto) 56.4 % (45.0-75.0) Lymphocytes (%) (Auto) 23.3 % (20.0-45.0) Monocytes (%) (Auto) 11.2 % (1.0-10.0) H Eosinophils (%) (Auto) 7.7 % (0.0-3.0) H Basophils (%) (Auto) 1.5 % (0.0-2.0) Sodium Level 138 MMOL/L (136-145) Potassium Level 3.7 MMOL/L (3.5-5.1) Chloride Level 99 MMOL/L (98-107) Carbon Dioxide Level 33 MMOL/L (21-32) H Anion Gap 6 mmol/L (5-15) Blood Urea Nitrogen 25 mg/dL (7-18) H Creatinine 1.2 MG/DL (0.55-1.30) Estimat Glomerular Filtration Rate mL/min (>60) Glucose Level 110 MG/DL (74-106) H Calcium Level 9.0 MG/DL (8.5-10.1) Total Bilirubin 0.7 MG/DL (0.2-1.0) Aspartate Amino Transf (AST/SGOT) 23 U/L (15-37) Alanine Aminotransferase (ALT/SGPT) 28 U/L (12-78) Alkaline Phosphatase 69 U/L (46-116) Total Protein 6.9 G/DL (6.4-8.2) Albumin 3.2 G/DL (3.4-5.0) L Globulin 3.7 g/dL Albumin/Globulin Ratio 0.9 (1.0-2.7) L Fox Madrigal MD May 04, 2019 17:23
--- NOTE | 2019-05-04 19:10 | NUR ---
NURSE NOTES: Pt report received from Tonio Blackmon RN TELE. PT is alert and oriented times 4 and able to follow commands. pts pupils are round and reactive to light and accommodating bilaterally. Pt is on a chain offbearer showing SR on the monitor, no signs or symptoms of acute cardiac distress noted. pt is on 2 L NC and saturating at 99%, no signs or symptoms of acute respiratory distress noted. pt has a R AC 2 lumen PICC line, no compromise noted/ able to flush. safety precautions in place, pt is able to ambulate, but is instructed to have assistance when ambulating, call light within easy reach, bed rails up times 3, bed armed, locked low. will follow plan of care. .
--- NOTE | 2019-05-04 19:25 | NUR ---
HAND-OFF: Report given to SHELLY Quintero. The patient is resting on the chair without acute distress or shortness of breath. The patient's bed in the lowest position, call light in reach, and fall precaution reinforced. Endorsed plan of care.
[2019-05-04 20:00] VITALS: BP 138/78
[2019-05-04] MEDS: Dyna-Hex 2% Top Sol 2oz TOPIC SCH (20:11)
[2019-05-04] MEDS: HYDROcodone/Acetamin 5/325 tab ORAL PRN (20:25)
[2019-05-05] VITALS: BP 124/81
[2019-05-05] MEDS: HYDROcodone/Acetamin 5/325 tab ORAL PRN ×2 (00:49→13:42)
[2019-05-05 04:00] VITALS: BP 108/75
[2019-05-05] MEDS: Levothyroxine 25mcg tab ORAL SCH (05:53)
[2019-05-05 07:19] LABS: BASOPHILS % (AUTO) 1.8 % (0.0-2.0); EOSINOPHILS % (AUTO) 7.4 % (0.0-3.0); HEMATOCRIT 41.6 % (37.0-47.0); HEMOGLOBIN 14.3 G/DL (12.0-16.0); LYMPHOCYTES % (AUTO) 19.9 % (20.0-45.0); MEAN CORPUSCULAR VOLUME 96 FL (80-99); MONOCYTES % (AUTO) 11.5 % (1.0-10.0); NEUTROPHILS % (AUTO) 59.4 % (45.0-75.0); PLATELET COUNT 193 K/UL (150-450); RED BLOOD COUNT 4.35 M/UL (4.20-5.40); RED CELL DISTRIBUTION WIDTH 12.2 % (11.6-14.8); WHITE BLOOD COUNT 8.3 K/UL (4.8-10.8)
--- NOTE | 2019-05-05 07:20 | NUR ---
HAND-OFF: Report given to Tonio BRAVO TELE.
--- NOTE | 2019-05-05 07:35 | NUR ---
NURSE NOTES: Received report from SHELLY Quintero. The patient is sleeping on the bed without acute distress or shortness of breath. The patient's bed in the lowest position, call light in reach, and fall precaution reinforced. PICC line intact and asymptomatic. Will continue plan of care.
[2019-05-05 08:00] VITALS: BP 145/83
[2019-05-05 08:06] LABS: ALANINE AMINOTRANSFERASE 30 U/L (12-78); ALBUMIN/GLOBULIN RATIO 0.8 (1.0-2.7); ALKALINE PHOSPHATASE 64 U/L (46-116); ANION GAP 9 mmol/L (5-15); ASPARTATE AMINO TRANSFERASE 21 U/L (15-37); BILIRUBIN,TOTAL 0.7 MG/DL (0.2-1.0); BLOOD UREA NITROGEN 27 mg/dL (7-18); CALCIUM 9.2 MG/DL (8.5-10.1); CARBON DIOXIDE 29 MMOL/L (21-32); CHLORIDE 102 MMOL/L (98-107); CREATININE 1.2 MG/DL (0.55-1.30); POTASSIUM 3.9 MMOL/L (3.5-5.1); SODIUM 140 MMOL/L (136-145)
[2019-05-05] MEDS: Digoxin 0.125mg tab ORAL SCH (08:09)
[2019-05-05] MEDS: Eliquis 5mg tablet ORAL SCH ×2 (08:09→17:30)
[2019-05-05] MEDS: Metoprolol Succinate XL 25mg tab ORAL SCH (08:10)
--- NOTE | 2019-05-05 09:30 | NUR ---
NURSE NOTES: Central line dressing change completed.
--- NOTE | 2019-05-05 10:08 | NUR ---
NURSE NOTES: Notified Dr. Patel regarding digoxin level, blood pressure heart rate, and morning dose of heart related medication. Dr. Patel cleared from cardiac standpoint. Notified to Dr. Coronel regarding the communicated made with Dr. Patel and Dr. Whyte.
--- NOTE | 2019-05-05 10:49 | NUR ---
DISCHARGE PLANNING AWAITING CLEARANCE FROM CARDIO FOR DISCHARGE PATIENT HAS BEEN REFERRED TO [facility] T: [phone] F: [phone]
--- NOTE | 2019-05-05 10:53 | Pulmonology Progress Note ---
Assessment/Plan Problems: (1) SOB (shortness of breath) (2) Pleural nodules (3) Atrial fibrillation (4) Pleural effusion (5) Hypertensive urgency Assessment/Plan ASSESSMENT: * SOB, likely multifactorial 2/2 CHF/DD, anxiety, obesity, ? OHV/OSH * CATES * DAYLIN not compliant with CPAP * Old granulomatous disease * L pleural thickening and scarring, ? sequelae of old infection, stable compared to chest cuts of CT A/P [facility] 06/2017 * Obesity * Elevated D-dimer but neg duplex and CT * CHF with DD * AF S/P failed ablation x 3 in the past * Hypothyroidism * HTN, HL * Amiodarone usage but no e/o ILD on CT * Elevated TSH with normal TFT's likely sick euthyroid PLAN: * Optimize pulmonary hygiene/mobilize as tolerated * PRN O2 * PRN HHN's * CPAP 10 cm H2O qHS * F/U serologies as ordered by ID * Consider outpatient PET/CT * Monitor volumes and renal function, cautious diuresis as able * F/U final TTE * DVT Px: Eliquis * FC * Outpatient PFT's Subjective Allergies: Coded Allergies: LATEX (Verified Allergy, Unknown, 05/02/19) Subjective AFVSS O2 needs stable Duplex neg VQ IP but V scan not done and lots of parenchymal abnormalities prior CT neg for PE No change in SOB, no change in cough, some wheezing, no FC Objective Last 24 Hour Vital Signs Date Time Temp Pulse Resp B/P (MAP) Pulse Ox O2 Delivery O2 Flow Rate FiO2 05/05/19 09:00 Nasal Cannula 2.0 05/05/19 08:10 76 145/83 05/05/19 08:09 76 05/05/19 08:00 97.7 76 18 145/83 (103) 95 05/05/19 08:00 71 05/05/19 07:40 60 16 98 Nasal Cannula 3.0 32 05/05/19 07:40 98 Nasal Cannula 3.0 32 05/05/19 04:00 97.9 66 20 108/75 (86) 98 05/05/19 04:00 79 05/05/19 00:59 130 134 139 05/05/19 00:00 98.1 89 20 124/81 (95) 97 05/05/19 00:00 66 05/04/19 21:00 Nasal Cannula 2.0 05/04/19 20:08 96 Nasal Cannula 3.0 32 05/04/19 20:08 69 18 96 Nasal Cannula 3.0 32 05/04/19 20:00 77 05/04/19 20:00 98.3 66 20 138/78 (98) 96 05/04/19 16:00 97.5 70 20 116/79 (91) 97 05/04/19 16:00 77 05/04/19 12:00 97.3 69 20 130/78 (95) 97 05/04/19 12:00 81 Intake and Output 05/04/19 05/05/19 19:00 07:00 Intake Total 400 ml Balance 400 ml Intake Oral 400 ml # Voids 4 1 General Appearance: WD/WN, no acute distress HEENT: normocephalic, atraumatic, anicteric, mucous membranes moist Respiratory/Chest: chest wall non-tender, lungs clear, normal breath sounds, no respiratory distress, no accessory muscle use Cardiovascular: normal peripheral pulses, normal rate, regular rhythm Abdomen: normal bowel sounds, soft, non tender, no organomegaly, non distended , no mass Extremities: no cyanosis, no clubbing, no edema Microbiology Date/Time Source Procedure Growth Status 05/02/19 14:00 Blood Blood Culture - Preliminary NO GROWTH AFTER 48 HOURS Resulted 05/02/19 14:00 Blood Blood Culture - Preliminary NO GROWTH AFTER 48 HOURS Resulted Laboratory Tests 05/05/19 05:23: White Blood Count 8.3, Red Blood Count 4.35, Hemoglobin 14.3, Hematocrit 41.6, Mean Corpuscular Volume 96, Mean Corpuscular Hemoglobin 32.9H, Mean Corpuscular Hemoglobin Concent 34.5, Red Cell Distribution Width 12.2, Platelet Count 193, Mean Platelet Volume 6.6, Neutrophils (%) (Auto) 59.4, Lymphocytes (%) (Auto) 19.9L, Monocytes (%) (Auto) 11.5H, Eosinophils (%) (Auto) 7.4H, Basophils (%) ( Auto) 1.8, Sodium Level 140, Potassium Level 3.9, Chloride Level 102, Carbon Dioxide Level 29, Anion Gap 9, Blood Urea Nitrogen 27H, Creatinine 1.2, Estimat Glomerular Filtration Rate , Glucose Level 101, Calcium Level 9.2, Total Bilirubin 0.7, Aspartate Amino Transf (AST/SGOT) 21, Alanine Aminotransferase ( ALT/SGPT) 30, Alkaline Phosphatase 64, Total Protein 7.0, Albumin 3.0L, Globulin 4.0, Albumin/Globulin Ratio 0.8L, Digoxin Level 0.4L Current Medications Medications (Trade) Dose Ordered Sig/Felipe Route PRN Reason Start Time Stop Time Status Last Admin Dose Admin Acetaminophen (Tylenol) 650 mg Q6H PRN ORAL Mild Pain/Temp > 100.5 05/02/19 16:00 06/01/19 15:59 05/05/19 08:11 Acetaminophen/ Hydrocodone Bitart ([place] 5/325) 1 tab Q4H PRN ORAL Moderate Pain (Pain Scale 4-6) 05/03/19 11:45 05/10/19 11:44 05/05/19 00:49 Albuterol/ Ipratropium (Albuterol/ Ipratropium) 3 ml Q4H PRN HHN Shortness of Breath 05/02/19 15:15 05/07/19 15:14 Amlodipine Besylate (Norvasc) 5 mg BIDPRN PRN ORAL SBP > 155 05/02/19 21:45 06/01/19 21:44 Apixaban (Eliquis) 5 mg BID ORAL 05/03/19 09:00 06/02/19 08:59 05/05/19 08:09 Chlorhexidine Gluconate (Anastasia-Hex 2%) 1 applic DAILY@1999 TOPIC 05/04/19 20:00 06/03/19 19:59 05/04/19 20:11 Digoxin (Lanoxin) 0.125 mg DAILY ORAL 05/03/19 09:00 06/02/19 08:59 05/05/19 08:09 Iopamidol (Isovue-370 150ml) 150 ml NOW PRN INJ Radiology Procedure 05/03/19 21:00 05/05/19 20:54 Levothyroxine Sodium (Synthroid) 25 mcg DAILY@0630 ORAL 05/04/19 06:30 06/03/19 06:29 05/05/19 05:53 Metoprolol Succinate (Toprol XL) 25 mg DAILY ORAL 05/05/19 09:00 06/04/19 08:59 05/05/19 08:10 Nitroglycerin (Ntg) 0.4 mg Q5M PRN SL Prn Chest Pain 05/02/19 15:45 06/01/19 15:44 Pantoprazole (Protonix) 40 mg EVERY 12 HOURS ORAL 05/02/19 21:00 06/01/19 20:59 05/05/19 08:09 Zolpidem Tartrate (Ambien) 5 mg HSPRN PRN ORAL Insomnia 05/02/19 21:30 05/09/19 21:29 Dinesh Whyte MD May 05, 2019 10:53
[2019-05-05] MEDS ORDERED: Metoprolol Succinate XL ORAL (10:56)
[2019-05-05] MEDS ORDERED: NORVASC5 MG ORAL (10:56)
--- NOTE | 2019-05-05 11:06 | General Progress Note ---
Assessment/Plan Status: stable Assessment/Plan: S: I am ok O: seems comfortable, walking in the room PHYSICAL EXAMINATION: HEAD AND NECK: Atraumatic, normocephalic.CHEST: Clear to auscultation.HEART: S1, S2. Regular rate and rhythm. ABDOMEN: Soft. No organomegaly.MUSCULOSKELETAL: Positive for 2+ pitting edema in the bilateral ankles. NEUROLOGIC: Awake, alert, oriented x3. Imaging: completed echo ASSESSMENT AND PLAN: 1. Congestive heart failure exacerbation, Diastolic Type. 2. Healthcare-associated pneumonia, less likely. 3. Atrial fibrillation with controlled rate. 4. Hypertension. 5. Abnormal blood sugar. 6. GI and DVT prophylaxes. Plan: Notes from cardiology and ID reviewed will continue with optimization of medications once clear by Pulmonary may followup as o/p Medication recon is completed Subjective Allergies: Coded Allergies: LATEX (Verified Allergy, Unknown, 05/02/19) Objective Last 24 Hour Vital Signs Date Time Temp Pulse Resp B/P (MAP) Pulse Ox O2 Delivery O2 Flow Rate FiO2 05/05/19 09:00 Nasal Cannula 2.0 05/05/19 08:10 76 145/83 05/05/19 08:09 76 05/05/19 08:00 97.7 76 18 145/83 (103) 95 05/05/19 08:00 71 05/05/19 07:40 60 16 98 Nasal Cannula 3.0 32 05/05/19 07:40 98 Nasal Cannula 3.0 32 05/05/19 04:00 97.9 66 20 108/75 (86) 98 05/05/19 04:00 79 05/05/19 00:59 130 134 139 05/05/19 00:00 98.1 89 20 124/81 (95) 97 05/05/19 00:00 66 05/04/19 21:00 Nasal Cannula 2.0 05/04/19 20:08 96 Nasal Cannula 3.0 32 05/04/19 20:08 69 18 96 Nasal Cannula 3.0 32 05/04/19 20:00 77 05/04/19 20:00 98.3 66 20 138/78 (98) 96 05/04/19 16:00 97.5 70 20 116/79 (91) 97 05/04/19 16:00 77 05/04/19 12:00 97.3 69 20 130/78 (95) 97 05/04/19 12:00 81 Intake and Output 05/04/19 05/05/19 19:00 07:00 Intake Total 400 ml Balance 400 ml Intake Oral 400 ml # Voids 4 1 Laboratory Tests 05/05/19 05:23: White Blood Count 8.3, Red Blood Count 4.35, Hemoglobin 14.3, Hematocrit 41.6, Mean Corpuscular Volume 96, Mean Corpuscular Hemoglobin 32.9H, Mean Corpuscular Hemoglobin Concent 34.5, Red Cell Distribution Width 12.2, Platelet Count 193, Mean Platelet Volume 6.6, Neutrophils (%) (Auto) 59.4, Lymphocytes (%) (Auto) 19.9L, Monocytes (%) (Auto) 11.5H, Eosinophils (%) (Auto) 7.4H, Basophils (%) ( Auto) 1.8, Sodium Level 140, Potassium Level 3.9, Chloride Level 102, Carbon Dioxide Level 29, Anion Gap 9, Blood Urea Nitrogen 27H, Creatinine 1.2, Estimat Glomerular Filtration Rate , Glucose Level 101, Calcium Level 9.2, Total Bilirubin 0.7, Aspartate Amino Transf (AST/SGOT) 21, Alanine Aminotransferase ( ALT/SGPT) 30, Alkaline Phosphatase 64, Total Protein 7.0, Albumin 3.0L, Globulin 4.0, Albumin/Globulin Ratio 0.8L, Digoxin Level 0.4L Height (Feet): 5 Height (Inches): 4.00 Weight (Pounds): 165 Devon Coronel MD May 05, 2019 11:06
[2019-05-05 12:00] VITALS: BP 133/89
--- NOTE | 2019-05-05 12:40 | NUR ---
NURSE NOTES: Cleared with Dr. Madrigal in cardiac stand point. Clarified and cleared with Dr. Whyte and was told that no further testing needed. Notified Dr. Coronel regarding pending blood test that Dr. Pinto ordered. Dr. Coronel ordered for discharge to home with home health and wrote the patient the medications for discharge. Will carry out the order.
[2019-05-05] MEDS ORDERED: ELIQUIS5 MG PO (12:56)
[2019-05-05] MEDS ORDERED: DIGOXIN125 MCG ORAL (12:57)
[2019-05-05] MEDS ORDERED: SYNTHROID25 MCG ORAL (12:57)
[2019-05-05] MEDS ORDERED: AMLODIPINE BESYL5 MG ORAL (12:57)
[2019-05-05] MEDS ORDERED: METOPROLOL SUCC25 MG ORAL (12:58)
--- NOTE | 2019-05-05 13:30 | NUR ---
NURSE NOTES: Communicated with Citlali, friend regarding the patient's discharge and turkey picker. Citlali can be here around 1530. Per patient, she needs supplemental oxygen so she can use at home.
--- NOTE | 2019-05-05 14:02 | Infectious Diseases Prog Note ---
Assessment/Plan Problems: (1) Pleural nodules Assessment & Plan: rule out fungal etiology , await serology , pulmonary eval is in progress (2) Pleural effusion Assessment & Plan: nonspecific , monitor clinically, too small for thoracentesis (3) SOB (shortness of breath) Assessment & Plan: suspect interstitial lungs disease with H/O living close by [employer] plants. CTA of the lungs was negative for PE , pulmonary is following Subjective HEENT: Reports: no symptoms Respiratory: Reports: dry cough Breasts: Reports: no symptoms Cardiovascular: Reports: no symptoms Gastrointestinal/Abdominal: Reports: no symptoms Genitourinary: Reports: no symptoms Neurologic: Reports: no symptoms Psychiatric: Reports: no symptoms Skin: Reports: no symptoms Endocrine: Reports: no symptoms Hematologic: Reports: no symptoms Musculoskeletal: Reports: no symptoms Allergies: Coded Allergies: LATEX (Verified Allergy, Unknown, 05/02/19) Objective Vital Signs Last 24 Hour Vital Signs Date Time Temp Pulse Resp B/P (MAP) Pulse Ox O2 Delivery O2 Flow Rate FiO2 05/05/19 12:00 64 05/05/19 12:00 97.3 83 20 133/89 (104) 96 05/05/19 09:00 Nasal Cannula 2.0 05/05/19 08:10 76 145/83 05/05/19 08:09 76 05/05/19 08:00 97.7 76 18 145/83 (103) 95 05/05/19 08:00 71 05/05/19 07:40 60 16 98 Nasal Cannula 3.0 32 05/05/19 07:40 98 Nasal Cannula 3.0 32 05/05/19 04:00 97.9 66 20 108/75 (86) 98 05/05/19 04:00 79 05/05/19 00:59 130 134 139 05/05/19 00:00 98.1 89 20 124/81 (95) 97 05/05/19 00:00 66 05/04/19 21:00 Nasal Cannula 2.0 05/04/19 20:08 96 Nasal Cannula 3.0 32 05/04/19 20:08 69 18 96 Nasal Cannula 3.0 32 05/04/19 20:00 77 05/04/19 20:00 98.3 66 20 138/78 (98) 96 05/04/19 16:00 97.5 70 20 116/79 (91) 97 05/04/19 16:00 77 Height (Feet): 5 Height (Inches): 4.00 Weight (Pounds): 165 General Appearance: WD/WN, no acute distress HEENT: normocephalic, atraumatic, anicteric, mucous membranes moist, PERRL Respiratory/Chest: chest wall non-tender, normal breath sounds, no respiratory distress, no accessory muscle use, decreased breath sounds Cardiovascular: normal peripheral pulses, normal rate, regular rhythm, no gallop/murmur, no JVD Abdomen: normal bowel sounds, soft, non tender, no organomegaly, non distended , no mass, no scars Extremities: no cyanosis, no clubbing Skin: no rash, no lesions, no ulcers Neurologic/Psychiatric: garage hand II-XII grossly normal, alert, responsive Lymphatic: no neck adenopathy, no groin adenopathy Musculoskeletal: normal muscle bulk, no effusion Laboratory Tests Test 05/05/19 05:23 White Blood Count 8.3 K/UL (4.8-10.8) Red Blood Count 4.35 M/UL (4.20-5.40) Hemoglobin 14.3 G/DL (12.0-16.0) Hematocrit 41.6 % (37.0-47.0) Mean Corpuscular Volume 96 FL (80-99) Mean Corpuscular Hemoglobin 32.9 PG (27.0-31.0) H Mean Corpuscular Hemoglobin Concent 34.5 G/DL (32.0-36.0) Red Cell Distribution Width 12.2 % (11.6-14.8) Platelet Count 193 K/UL (150-450) Mean Platelet Volume 6.6 FL (6.5-10.1) Neutrophils (%) (Auto) 59.4 % (45.0-75.0) Lymphocytes (%) (Auto) 19.9 % (20.0-45.0) L Monocytes (%) (Auto) 11.5 % (1.0-10.0) H Eosinophils (%) (Auto) 7.4 % (0.0-3.0) H Basophils (%) (Auto) 1.8 % (0.0-2.0) Sodium Level 140 MMOL/L (136-145) Potassium Level 3.9 MMOL/L (3.5-5.1) Chloride Level 102 MMOL/L (98-107) Carbon Dioxide Level 29 MMOL/L (21-32) Anion Gap 9 mmol/L (5-15) Blood Urea Nitrogen 27 mg/dL (7-18) H Creatinine 1.2 MG/DL (0.55-1.30) Estimat Glomerular Filtration Rate mL/min (>60) Glucose Level 101 MG/DL (74-106) Calcium Level 9.2 MG/DL (8.5-10.1) Total Bilirubin 0.7 MG/DL (0.2-1.0) Aspartate Amino Transf (AST/SGOT) 21 U/L (15-37) Alanine Aminotransferase (ALT/SGPT) 30 U/L (12-78) Alkaline Phosphatase 64 U/L (46-116) Total Protein 7.0 G/DL (6.4-8.2) Albumin 3.0 G/DL (3.4-5.0) L Globulin 4.0 g/dL Albumin/Globulin Ratio 0.8 (1.0-2.7) L Digoxin Level 0.4 NG/ML (0.9-2.0) L Current Medications Medications (Trade) Dose Ordered Sig/Felipe Route PRN Reason Start Time Stop Time Status Last Admin Dose Admin Acetaminophen (Tylenol) 650 mg Q6H PRN ORAL Mild Pain/Temp > 100.5 05/02/19 16:00 06/01/19 15:59 05/05/19 08:11 Acetaminophen/ Hydrocodone Bitart ([place] 5/325) 1 tab Q4H PRN ORAL Moderate Pain (Pain Scale 4-6) 05/03/19 11:45 05/10/19 11:44 05/05/19 13:42 Albuterol/ Ipratropium (Albuterol/ Ipratropium) 3 ml Q4H PRN HHN Shortness of Breath 05/02/19 15:15 05/07/19 15:14 Amlodipine Besylate (Norvasc) 5 mg BIDPRN PRN ORAL SBP > 155 05/02/19 21:45 06/01/19 21:44 Apixaban (Eliquis) 5 mg BID ORAL 05/03/19 09:00 06/02/19 08:59 05/05/19 08:09 Chlorhexidine Gluconate (Anastasia-Hex 2%) 1 applic DAILY@1999 TOPIC 05/04/19 20:00 06/03/19 19:59 05/04/19 20:11 Digoxin (Lanoxin) 0.125 mg DAILY ORAL 05/03/19 09:00 06/02/19 08:59 05/05/19 08:09 Iopamidol (Isovue-370 150ml) 150 ml NOW PRN INJ Radiology Procedure 05/03/19 21:00 05/05/19 20:54 Levothyroxine Sodium (Synthroid) 25 mcg DAILY@0630 ORAL 05/04/19 06:30 06/03/19 06:29 05/05/19 05:53 Metoprolol Succinate (Toprol XL) 25 mg DAILY ORAL 05/05/19 09:00 06/04/19 08:59 05/05/19 08:10 Nitroglycerin (Ntg) 0.4 mg Q5M PRN SL Prn Chest Pain 05/02/19 15:45 06/01/19 15:44 Pantoprazole (Protonix) 40 mg EVERY 12 HOURS ORAL 05/02/19 21:00 06/01/19 20:59 05/05/19 08:09 Zolpidem Tartrate (Ambien) 5 mg HSPRN PRN ORAL Insomnia 05/02/19 21:30 05/09/19 21:29 Carolyne Pinto M.D. May 05, 2019 14:02
--- NOTE | 2019-05-05 14:22 | NUR ---
NURSE NOTES: Called case filler for oxygen supply with Dr. Whyte's order of 2L NC PRN, but no answer. Will continue plan of care.
--- NOTE | 2019-05-05 14:44 | NUR ---
DISCHARGE PLANNING PATIENT'S HAVE TO QUALIFY FOR OXYGEN DISCUSSED WITH CHARGE NURSE AGUDENCIO DOCUMENTATION IS REQUIRED
--- NOTE | 2019-05-05 15:17 | NUR ---
NURSE NOTES: Per Dr. Coronel, put on hold for discharge until figuring out regarding oxygen issue. Dr. Whyte ordered supplemental oxygen upon discharge for 2L NC PRN. The patient walked on the floor with assist without oxygen and the lowest O2 sat was 89%. Per charge nurse, needs documentation to get oxygen upon discharge. Discharge on hold until the issue resolves.
--- NOTE | 2019-05-05 15:50 | NUR ---
NURSE NOTES: Dax Rod, correctional case manager, she will send the note for home oxygen. Awaiting for oxygen to arrive to the unit before the patient discharge.
--- NOTE | 2019-05-05 15:55 | NUR ---
DISCHARGE PLANNING PATIENT HAS BEEN REFERRED TO THE FOLLOWIN) [facility] T: [phone] F: [phone] 2) [facility] T: [phone] F: [phone] ONCE OXYGEN HAS BEEN DELIVERED TO HOSPITAL THEN PATIENT CAN DISCHARGE
[2019-05-05 16:00] VITALS: BP 136/79
--- NOTE | 2019-05-05 17:45 | NUR ---
NURSE NOTES: Kike García from [facility] brought only the oxygen tank for transport. Mr García states he is unable to bring the home oxygen supply until tomorrow morning about 10am- Noon. Discussed with patient. Endorsed to primary nurse.
--- NOTE | 2019-05-05 18:00 | NUR ---
NURSE NOTES: Per charge nurse, the patient can be discharge as soon as supply for home oxygen arrives 05/06 morning. The patient was informed and agreed.
--- NOTE | 2019-05-05 18:51 | Cardiology Progress Note ---
Assessment/Plan Problem List: (1) Dizziness (2) Atrial fibrillation (3) Pleural effusion (4) SOB (shortness of breath) (5) Pleural nodules Status: stable, progressing Status Narrative Pt hemodynamically stable. In AF w/ controlled ventricular rates Desat to 89% and dyspnea after ambulation in halls today Assessment/Plan Continue apixaban, metoprolol for permanent AF. Home 02 ( chronic lung disease, desat w/ exertion) and evening CPAP for [place] DC plan for tomorrow, once home o2 arranged. Subjective ROS Limited/Unobtainable: No Subjective Cardiology for Dr. Madrigal No c/o of palpitations or dyspnea. Ambulating in room Objective Last 24 Hour Vital Signs Date Time Temp Pulse Resp B/P (MAP) Pulse Ox O2 Delivery O2 Flow Rate FiO2 05/05/19 16:00 97.5 73 20 136/79 (98) 96 05/05/19 16:00 84 05/05/19 12:00 138 147 136 05/05/19 12:00 64 05/05/19 12:00 97.3 83 20 133/89 (104) 96 05/05/19 09:00 Nasal Cannula 2.0 05/05/19 08:10 76 145/83 05/05/19 08:09 76 05/05/19 08:00 97.7 76 18 145/83 (103) 95 05/05/19 08:00 71 05/05/19 07:40 60 16 98 Nasal Cannula 3.0 32 05/05/19 07:40 98 Nasal Cannula 3.0 32 05/05/19 04:00 97.9 66 20 108/75 (86) 98 05/05/19 04:00 79 05/05/19 00:59 130 134 139 05/05/19 00:00 98.1 89 20 124/81 (95) 97 05/05/19 00:00 66 05/04/19 21:00 Nasal Cannula 2.0 05/04/19 20:08 96 Nasal Cannula 3.0 32 05/04/19 20:08 69 18 96 Nasal Cannula 3.0 32 05/04/19 20:00 77 05/04/19 20:00 98.3 66 20 138/78 (98) 96 General Appearance: WD/WN, alert, obese EENT: PERRL/EOMI Neck: non-tender, no JVD Rhythm: Afib Cardiovascular: normal rate, irregularly irregular Respiratory/Chest: lungs clear, normal breath sounds, no respiratory distress Abdomen: non tender, soft Extremities: non-tender, no swelling Intake and Output 05/04/19 05/05/19 19:00 07:00 Intake Total 400 ml Balance 400 ml Intake Oral 400 ml # Voids 4 1 Laboratory Tests Test 05/05/19 05:23 White Blood Count 8.3 K/UL (4.8-10.8) Red Blood Count 4.35 M/UL (4.20-5.40) Hemoglobin 14.3 G/DL (12.0-16.0) Hematocrit 41.6 % (37.0-47.0) Mean Corpuscular Volume 96 FL (80-99) Mean Corpuscular Hemoglobin 32.9 PG (27.0-31.0) H Mean Corpuscular Hemoglobin Concent 34.5 G/DL (32.0-36.0) Red Cell Distribution Width 12.2 % (11.6-14.8) Platelet Count 193 K/UL (150-450) Mean Platelet Volume 6.6 FL (6.5-10.1) Neutrophils (%) (Auto) 59.4 % (45.0-75.0) Lymphocytes (%) (Auto) 19.9 % (20.0-45.0) L Monocytes (%) (Auto) 11.5 % (1.0-10.0) H Eosinophils (%) (Auto) 7.4 % (0.0-3.0) H Basophils (%) (Auto) 1.8 % (0.0-2.0) Sodium Level 140 MMOL/L (136-145) Potassium Level 3.9 MMOL/L (3.5-5.1) Chloride Level 102 MMOL/L (98-107) Carbon Dioxide Level 29 MMOL/L (21-32) Anion Gap 9 mmol/L (5-15) Blood Urea Nitrogen 27 mg/dL (7-18) H Creatinine 1.2 MG/DL (0.55-1.30) Estimat Glomerular Filtration Rate mL/min (>60) Glucose Level 101 MG/DL (74-106) Calcium Level 9.2 MG/DL (8.5-10.1) Total Bilirubin 0.7 MG/DL (0.2-1.0) Aspartate Amino Transf (AST/SGOT) 21 U/L (15-37) Alanine Aminotransferase (ALT/SGPT) 30 U/L (12-78) Alkaline Phosphatase 64 U/L (46-116) Total Protein 7.0 G/DL (6.4-8.2) Albumin 3.0 G/DL (3.4-5.0) L Globulin 4.0 g/dL Albumin/Globulin Ratio 0.8 (1.0-2.7) L Digoxin Level 0.4 NG/ML (0.9-2.0) L Tasneem Matute MD May 05, 2019 18:51
--- NOTE | 2019-05-05 19:30 | NUR ---
HAND-OFF: Report given to SHELLY Phelps. The patient is resting on the bed without acute distress or shortness of breath. The patient's bed in the lowest position, call light in reach, and fall precaution reinforced. Endorsed plan of care.
--- NOTE | 2019-05-05 19:31 | NUR ---
NURSE NOTES: Received bedside report from SHELLY Murray.Patient stable,A&O x 4 A-Fib on quality assurance monitor body,tolerated 2 L/min N/C well,no c/o SOB,no pain,no respiratory distress at this moment,BS active in all quadrants,IV asymptomatic,intact PICC line double lumen TKO,bed secured in a low safety position,call light within a reach,will continue to POC.Pt is ready to go home with Home Health and portable oxygen,waiting for oxygen deliver home in a morning,next shift will endorse
[2019-05-05 20:00] VITALS: BP 133/76
[2019-05-05] MEDS: Dyna-Hex 2% Top Sol 2oz TOPIC SCH (20:40)
[2019-05-06] VITALS: BP 125/85
[2019-05-06 04:00] VITALS: BP 144/92
[2019-05-06] MEDS: Levothyroxine 25mcg tab ORAL SCH (06:31)
--- NOTE | 2019-05-06 07:10 | NUR ---
HAND-OFF: Report given to SHELLY Savage.Patient stable,sleeping.
--- NOTE | 2019-05-06 07:13 | NUR ---
NURSE NOTES: Report received from SHELLY Phelps. Patient sleeping comfortably, no breathing distress noted. Bed on lowest position, side rails upx2, brakes engaged. Call light within easy reach.
[2019-05-06 08:00] VITALS: BP 144/78
[2019-05-06 09:22] VITALS: BP 144/78
[2019-05-06] MEDS: Digoxin 0.125mg tab ORAL SCH (09:22)
[2019-05-06] MEDS: Metoprolol Succinate XL 25mg tab ORAL SCH (09:22)
[2019-05-06] MEDS: Eliquis 5mg tablet ORAL SCH (09:23)
--- NOTE | 2019-05-06 10:20 | NUR ---
DISCHARGE PLAN PORTABLE OXYGEN TANK FOR HOME USE WAS DELIVERED TO BEDSIDE LAST NIGHT SPOKE WITH REP RAMIREZ FROM [facility] STATING THEY ARE EXPECTING TO DELIVER CONCENTRATOR AND ADDITIONAL PORTABLE TANKS TO PATIENT'S HOME TODAY BETWEEN 10 AM AND 1PM [employer]OR[employer] TESTER SPOKE WITH PATIENT AT BEDSIDE AND INSTRUCTED HER TO CALL PHONE NUMBER ON TANK WHEN SHE ARRIVES HOME SO DELIVERY CAN BE COMPLETED ABOVE DISCUSSED WITH CHARGE NURSE CAMILLE AND BEDSIDE NURSE MIRTA
--- NOTE | 2019-05-06 10:39 | General Progress Note ---
Assessment/Plan Status: stable, progressing Assessment/Plan: Labs, meds and notes from Pulmonary reviewed. Discussed with CM. Subjective Allergies: Coded Allergies: LATEX (Verified Allergy, Unknown, 05/02/19) Objective Last 24 Hour Vital Signs Date Time Temp Pulse Resp B/P (MAP) Pulse Ox O2 Delivery O2 Flow Rate FiO2 05/06/19 09:22 87 144/78 05/06/19 09:22 87 05/06/19 09:00 Nasal Cannula 2.0 05/06/19 08:00 97.7 87 18 144/78 (100) 97 05/06/19 08:00 98 Nasal Cannula 3.0 32 05/06/19 08:00 87 05/06/19 08:00 84 20 98 Nasal Cannula 3.0 32 05/06/19 04:00 98.0 83 18 144/92 (109) 98 05/06/19 03:27 72 05/06/19 00:04 98 Nasal Cannula 3.0 32 05/06/19 00:00 98.9 69 18 125/85 (98) 98 05/05/19 23:58 69 20 98 Nasal Cannula 3.0 32 05/05/19 23:39 73 05/05/19 21:00 Nasal Cannula 2.0 05/05/19 20:00 97.4 72 18 133/76 (95) 98 05/05/19 19:03 74 05/05/19 16:00 97.5 73 20 136/79 (98) 96 05/05/19 16:00 84 05/05/19 12:00 138 147 136 05/05/19 12:00 64 05/05/19 12:00 97.3 83 20 133/89 (104) 96 Intake and Output 05/05/19 05/06/19 18:59 06:59 Intake Total 360 ml 24 ml Balance 360 ml 24 ml Intake Oral 360 ml 24 ml # Voids 5 Height (Feet): 5 Height (Inches): 4.00 Weight (Pounds): 165 Devon Coronel MD May 06, 2019 10:39
--- NOTE | 2019-05-06 10:40 | NUR ---
NURSE NOTES: PICC line removed. Tube intact, 45cm. Pt. tolerated well. Pressure applied, dressing applied. Educated Pt. to keep applying pressure.
--- NOTE | 2019-05-06 11:00 | NUR ---
NURSE NOTES: Reminder given to Pt. to call the number on oxygen tank so that oxygen will be delivered home. Pt. verbalized understanding.
--- NOTE | 2019-05-06 12:15 | NUR ---
NURSE NOTES: Education given regarding new medication. New medication prescription given to Pt. singed on copy, and filed. Monitor box removed, cleaned and stored. PICC line site, dry and intact. Educated Pt. on how to care for site. Belongings checked with Patient. Date on belongings paper changed to today's date. Reminder given to given a call to oxygen delivery company when she gets around home. Pt's ride came, Pt left floor safe, accompanied by DYE HOUSE WORKER.
[2019-05-06] MEDS ORDERED: NS 275ml ONE (12:23)
--- NOTE | 2019-05-06 19:38 | Infectious Diseases Prog Note ---
Assessment/Plan Problems: (1) Pleural nodules Assessment & Plan: could be due to old fungal pneumonia , fungal serology is pending , follow up with pulmonary (2) Pleural effusion Assessment & Plan: nonspecific , monitor clinically, too small for thoracentesis (3) SOB (shortness of breath) Assessment & Plan: suspect interstitial lungs disease with H/O living close by [employer] plants. CTA of the lungs was negative for PE , pulmonary is following Subjective Constitutional: Reports: no symptoms HEENT: Reports: no symptoms Respiratory: Reports: no symptoms Breasts: Reports: no symptoms Cardiovascular: Reports: no symptoms Gastrointestinal/Abdominal: Reports: no symptoms Genitourinary: Reports: no symptoms Neurologic: Reports: no symptoms Psychiatric: Reports: no symptoms Skin: Reports: no symptoms Endocrine: Reports: no symptoms Hematologic: Reports: no symptoms Musculoskeletal: Reports: no symptoms Allergies: Coded Allergies: LATEX (Verified Allergy, Unknown, 05/02/19) Objective Vital Signs Last 24 Hour Vital Signs Date Time Temp Pulse Resp B/P (MAP) Pulse Ox O2 Delivery O2 Flow Rate FiO2 05/06/19 09:22 87 144/78 05/06/19 09:22 87 05/06/19 09:00 Nasal Cannula 2.0 05/06/19 08:00 97.7 87 18 144/78 (100) 97 05/06/19 08:00 98 Nasal Cannula 3.0 32 05/06/19 08:00 87 05/06/19 08:00 84 20 98 Nasal Cannula 3.0 32 05/06/19 04:00 98.0 83 18 144/92 (109) 98 05/06/19 03:27 72 05/06/19 00:04 98 Nasal Cannula 3.0 32 05/06/19 00:00 98.9 69 18 125/85 (98) 98 05/05/19 23:58 69 20 98 Nasal Cannula 3.0 32 05/05/19 23:39 73 05/05/19 21:00 Nasal Cannula 2.0 05/05/19 20:00 97.4 72 18 133/76 (95) 98 Height (Feet): 5 Height (Inches): 4.00 Weight (Pounds): 165 General Appearance: WD/WN, no acute distress HEENT: normocephalic, atraumatic, anicteric, mucous membranes moist, PERRL, EOMI, pharynx normal, supple, no JVD Respiratory/Chest: chest wall non-tender, normal breath sounds, no respiratory distress, no accessory muscle use, decreased breath sounds Cardiovascular: normal peripheral pulses, normal rate, regular rhythm, no gallop/murmur, no JVD Abdomen: normal bowel sounds, soft, non tender, no organomegaly, non distended , no mass, no scars Extremities: no cyanosis, no clubbing Skin: no rash, no lesions, no ulcers Neurologic/Psychiatric: alert, responsive Lymphatic: no neck adenopathy, no groin adenopathy Musculoskeletal: normal muscle bulk, no effusion Carolyne Pinto M.D. May 06, 2019 19:38
--- NOTE | 2019-05-07 09:59 | Discharge Summary ---
Discharge Summary Discharge Summary _ DATE OF ADMISSION: 05/02/2019 DATE OF DISCHARGE: 05/06/2029 DISCHARGED BY: Dr. Devon Coronel CONSULTANTS: Dr. Carolyne Whyte BRIEF HOSPITAL COURSE: Patient is a 73-year-old female, with history of heart failure (unverified), who presented with worsening shortness of breath for 5 days. He was brought in by EMS. She denied chest pain. Denied fever or cough. She has history of hypertension and atrial fibrillation, on anticoagulation. She complained of worsening shortness of breath and swelling on the legs. On evaluation at the ED, blood pressure was elevated to 166/114, pulse rate 84. She was saturating 94% on room air. She was afebrile. Blood work did not show any leukocytosis. Hemoglobin and hematocrit were stable. Electrolytes were normal. Troponin was negative. proBNP was elevated to 1581. EKG was in A. fib with no evidence of RVR. Chest x-ray done showed left basilar opacity and pulmonary vascular congestion. CT of the chest, abdomen and pelvis did not show any acute pathology in the abdomen and pelvic area. There was no pulmonary embolus identified. There was left-sided pleural thickening and or trace effusion. Some nodular pleural thickening seen posterior medially. Subpleural nodular density at the left lung apex, largest measuring 6 mm. She was then admitted for evaluation of likely CHF exacerbation, less likely pneumonia. She was given respiratory treatment. Cash Management Clerk was consulted. Patient presented with shortness of breath, likely multifactorial secondary to CHF, anxiety, obesity and possible obstructive sleep apnea. Patient had left pleural thickening and scarring, possible sequelae to an old infection. Lesion appeared stable compared to chest CT done at [facility] on 06/30/2017. D-dimer was elevated to 1.9. Venous duplex of the bilateral lower extremity was negative for acute DVT. VQ scan showed intermediate probability for pulmonary embolus. She was noncompliant with CPAP. She has history of atrial fibrillation and had 3 separate attempts for cardioversion. Patient had been on amiodarone, digoxin and metoprolol. She was continued on anticoagulation. Digoxin level 0.4. Amiodarone was placed on hold. She was continued on diuretics. Metoprolol dose was adjusted. She also had elevated lipid panel. Lipitor was increased to 40 mg nightly. TSH was elevated to 5.3, T3 and T4 were mild, likely sick euthyroid. She was given Synthroid 25 mcg. ID was consulted. She stated she has history of living close by [employer] plants. Patient had pulmonary nodules on CT. Histoplasma antigen and Coccidioides Ab still pending. Blastomyces Ab and Cryptococcus Ag negative. Blood culture did not isolate any growth. She was given physical therapy. Patient had an episode of O2 desaturation and dyspnea during ambulation. Patient would need continuous O2 upon discharge. Home O2 was arranged. She was eventually discharged home. FINAL DIAGNOSES: Congestive heart failure in exacerbation, diastolic type Healthcare associated pneumonia, less likely Shortness of breath, multifactorial, secondary to CHF, anxiety and obesity Obstructive sleep apnea, noncompliant with CPAP Old granulomatous disease Morbid obesity Elevated d-dimer but negative duplex and CT Hypothyroidism Atrial fibrillation, on anticoagulation, status post failed ablation x3 Pleural nodules Pleural effusion, nonspecific, too small for thoracentesis Amiodarone use Abnormal blood sugar DISPOSITION: Patient was discharged home with home health. DISCHARGE MEDICATIONS: Refer to Discharge Medication List. DISCHARGE INSTRUCTIONS: Follow-up in a week. I have been assigned to complete a discharge summary on this account, I was not involved with the patient's management.--PARISA Luong Jacqueline Robles NP May 07, 2019 09:59
--- NOTE | 2019-05-07 12:38 | Diagnostic Imaging Report ---
APPROVED REPORT Present Symptoms Comments: Screening Elevated D-dimer BILATERAL: Imaging reveals a patent deep venous system bilaterally. There is no evidence of thrombus within the femoral, popliteal or tibial segments. The greater saphenous veins are also within normal limits. Doppler indicates normal spontaneous flow within these segments. Incidental findings: Effusion noted around the anterior left knee area.
--- NOTE | 2019-05-08 16:24 | Cardiology Report ---
APPROVED REPORT EKG Measurement Heart [id number] Atrial fibrillation with premature ventricular or aberrantly conducted complexes Abnormal ECG
== END 2019-05-06 12:24 | disposition home health service (06) | DRG 291 ==
LOC: EDBD 11:14 → EMR 11:49 → 2E 12:04 → EDBEDREQ 12:30 → 2E 14:00
PROC: 02HV33Z Insertion of Infusion Device into Superior Vena Cava, Percutaneous Approach (ICD-10-PCS; principal; 2019-05-04)
DX: I11.0 Hypertensive heart disease with heart failure (principal); J18.9 Pneumonia, unspecified organism; I16.0 Hypertensive urgency; I50.33 Acute on chronic diastolic (congestive) heart failure; I48.0 Paroxysmal atrial fibrillation; F41.9 Anxiety disorder, unspecified; G47.33 Obstructive sleep apnea (adult) (pediatric); Y95 Nosocomial condition; E66.01 Morbid (severe) obesity due to excess calories; Z91.19 Patient's noncompliance with other medical treatment and regimen; E03.9 Hypothyroidism, unspecified; Z79.01 Long term (current) use of anticoagulants; R91.8 Other nonspecific abnormal finding of lung field; Z88.8 Allergy status to other drugs, medicaments and biological substances; Z87.891 Personal history of nicotine dependence; Z91.040 Latex allergy status
CPT/HCPCS: 36415; 36569; 36600; 70450; 71045; 71260; 74177; 76937; 78580; 80053; 80061; 80162; 82550; 82553; 82803; 83036; 83605; 83880; 84439; 84443; 84480; 84481; 84484; 85025; 85379; 85610; 85730; 86612; 86635; 87040; 87385; 87449; 93005; 93306; 93970; 94664; 96365; 99285

== ENCOUNTER 2019-07-02 11:23 | Inpatient (IN) | payer MEDICARE, MEDICAID ==
[~2019-07-02] VITALS: Ht 165.1 cm; Wt 104.3 kg
[~2019-07-02 11:23] MED LIST: AMIODARONE HCL100 MG ORAL; AMLODIPINE BESYL5 MG ORAL; DIGOX125 MCG PO; DIGOXIN125 MCG ORAL; ELIQUIS5 MG PO; FUROSEMIDE40 MG ORAL; METOPROLOL SUCC25 MG ORAL; Metoprolol Succinate XL ORAL; NORVASC5 MG ORAL; SYNTHROID25 MCG ORAL
--- NOTE | 2019-07-02 11:39 | NUR ---
ED Nurse Note: Pt came in due to rigth side abd. pain after fall injury on 06/28/2019. Pt tripped and fell in her living room and hit her abdomen on the floor. Denies head injury. AAO x4, ambulates with assist with unlabored breathing. No bruising on abdomen.
[2019-07-02 11:42] VITALS: BP 160/93
--- NOTE | 2019-07-02 12:22 | Diagnostic Imaging Report ---
Indications: Head pain, status post fall Technique: Spiral acquisitions obtained through the brain. Angled axial and coronal 5 x 5 mm slices were reconstructed. Total dose length product 1432.39 mGycm. CTDI vol(s) 70.38 mGy. Dose reduction achieved using automated exposure control Comparison: 05/04/2019 Findings: No acute intracranial hemorrhage or edema. No mass effect nor midline shift. Again demonstrated is age-related enlargement of the ventricles and extra-axial CSF spaces. Again demonstrated is periventricular deep white matter low-attenuation consistent with chronic microvascular ischemic changes. Swartz-white differentiation is normal. The calvarium is intact. The visualized orbits and sinuses are unremarkable. The mastoids are clear. Findings are unchanged Impression: Chronic and age-related changes Negative for acute intracranial bleed or mass effect The CT scanner at [facility] is accredited by the [employer] and the scans are performed using protocols designed to limit radiation exposure to as low as reasonably achievable to attain images of sufficient resolution adequate for diagnostic evaluation.
[2019-07-02] MEDS ORDERED: Isovue-300 100ml vial INJ PRN (12:45)
[2019-07-02 13:27] LABS: BASOPHILS % (AUTO) 2.1 % (0.0-2.0); EOSINOPHILS % (AUTO) 4.5 % (0.0-3.0); HEMATOCRIT 44.2 % (37.0-47.0); HEMOGLOBIN 14.8 G/DL (12.0-16.0); LYMPHOCYTES % (AUTO) 21.3 % (20.0-45.0); MEAN CORPUSCULAR VOLUME 97 FL (80-99); MONOCYTES % (AUTO) 7.6 % (1.0-10.0); NEUTROPHILS % (AUTO) 64.5 % (45.0-75.0); PLATELET COUNT 220 K/UL (150-450); RED BLOOD COUNT 4.56 M/UL (4.20-5.40); RED CELL DISTRIBUTION WIDTH 14.7 % (11.6-14.8)
[2019-07-02 13:28] LABS: APPEARANCE,URINE CLEAR; BILIRUBIN, URINE NEGATIVE (NEGATIVE); COLOR,URINE PALE YELLOW; GLUCOSE, URINE (UA) NEGATIVE (NEGATIVE); KETONES,URINE NEGATIVE (NEGATIVE); LEUKOCYTE ESTERASE ,URINE 3+ (NEGATIVE); NITRITE,URINE NEGATIVE (NEGATIVE); PH,URINE 7 (4.5-8.0); PROTEIN,URINE NEGATIVE (NEGATIVE); UROBILINOGEN,URINE NORMAL MG/DL (0.0-1.0)
[2019-07-02 13:45] VITALS: BP 148/77
[2019-07-02 13:48] LABS: ANION GAP 9 mmol/L (5-15); BLOOD UREA NITROGEN 17 mg/dL (7-18); CALCIUM 9.5 MG/DL (8.5-10.1); CARBON DIOXIDE 25 MMOL/L (21-32); CHLORIDE 105 MMOL/L (98-107); CREATININE 0.9 MG/DL (0.55-1.30); POTASSIUM 4.6 MMOL/L (3.5-5.1); SODIUM 139 MMOL/L (136-145)
[2019-07-02 13:52] LABS: ALANINE AMINOTRANSFERASE 17 U/L (12-78); ALBUMIN 3.4 G/DL (3.4-5.0); ALBUMIN/GLOBULIN RATIO 0.8 (1.0-2.7); ALKALINE PHOSPHATASE 64 U/L (46-116); ASPARTATE AMINO TRANSFERASE 19 U/L (15-37); BILIRUBIN,TOTAL 0.5 MG/DL (0.2-1.0)
--- NOTE | 2019-07-02 13:57 | NUR ---
ED Nurse Note: Called SHERIN to ff up with CT procedure.
--- NOTE | 2019-07-02 14:50 | Emergency Room Report ---
History of Present Illness General Chief Complaint: Multiple Trauma/Fall Source: Patient, Medical Record (China Curtis DO) Present Illness HPI This patient states that 4 days ago she tripped on some long pants and fell and hit her right upper abdomen on a hard object. She states she has sharp pain in that location. She denies fever chills. She denies nausea or vomiting. She denies dysuria or hematuria. She denies chest pain or shortness of breath. (EverChinaLatricia SHEA) HPI 74 year old female presents with mechanical fall 06/28/2019, patient endorses right lower rib pain, aggravated with movement alleviated with rest, pain is severe, no nausea no vomiting, no shortness of breath, patient presents for evaluation. (Kamlesh John MD) Allergies: Coded Allergies: LATEX (Verified Allergy, Unknown, 05/02/19) Patient History Past Medical History: see triage record, HTN, AFib Social History: Denies: smoking, alcohol use, drug use Reviewed Nursing Documentation: PMH: Agreed; PSxH: Agreed (China Curtis GuillerminaLatricia SHEA) Past Medical History: see triage record Reviewed Nursing Documentation: PMH: Agreed; PSxH: Agreed (Kamlesh John MD) Nursing Documentation-PMH Past Medical History: No History, Except For Hx Cardiac Problems: Yes - HTN, AFIB, HIATAL HERNIA, PANIC ATTACK Hx Hypertension: Yes Hx COPD: No Hx Cancer: No Hx Gastrointestinal Problems: No Hx Neurological Problems: No (EverChina SarmientoLatricia SHEA) Review of Systems All Other Systems: negative except mentioned in HPI (China Curtis DO) All Other Systems: negative except mentioned in HPI (Kamlesh John MD) Physical Exam Vital Signs Date Time Temp Pulse Resp B/P (MAP) Pulse Ox O2 Delivery O2 Flow Rate FiO2 07/02/19 11:29 97.5 92 18 91/68 (76) 93 Room Air Sp02 EP Interpretation: reviewed, normal General Appearance: no apparent distress, alert, GCS 15, non-toxic Head: normocephalic, atraumatic Eyes: bilateral eye normal inspection, bilateral eye PERRL ENT: hearing grossly normal, normal pharynx, no angioedema, normal voice Neck: full range of motion, supple/symm/no masses Respiratory: lungs clear, normal breath sounds, no respiratory distress, no retraction, no accessory muscle use, speaking full sentences, other - TTP along the lower rib cage on the R. Cardiovascular #1: regular rate, rhythm, no edema Gastrointestinal: normal bowel sounds, soft, non-distended, no guarding, no rebound, tenderness - R. upper abdomen and R. lower ribs. Rectal: deferred Musculoskeletal: back normal, gait/station normal, normal range of motion, non- tender Neurologic: alert, oriented x3, responsive, motor strength/tone normal, sensory intact, speech normal Psychiatric: judgement/insight normal, memory normal, mood/affect normal, no suicidal/homicidal ideation Skin: no rash, normal color (Colianno,China M. DO) Last 24 Hour Vital Signs Date Time Temp Pulse Resp B/P (MAP) Pulse Ox O2 Delivery O2 Flow Rate FiO2 07/02/19 15:41 98.3 84 16 152/98 99 Room Air 07/02/19 13:45 98.0 79 18 148/77 97 Room Air 07/02/19 11:42 97.5 88 16 160/93 95 Room Air 07/02/19 11:42 88 16 Room Air 07/02/19 11:29 97.5 92 18 91/68 (76) 93 Room Air Sp02 EP Interpretation: reviewed, normal General Appearance: well appearing, no apparent distress, alert Head: normocephalic, atraumatic Eyes: bilateral eye PERRL, bilateral eye EOMI ENT: uvula midline, moist mucus membranes Neck: supple, thyroid normal, supple/symm/no masses Respiratory: lungs clear, no respiratory distress, no retraction, no accessory muscle use Cardiovascular #1: normal peripheral pulses, regular rate, rhythm, no edema, no gallop, no murmur, other - Right chest wall lower ribs 9 through 12 tender to palpation laterally Gastrointestinal: non tender, soft, no guarding, no rebound Musculoskeletal: normal inspection Neurologic: alert, oriented x3 Psychiatric: mood/affect normal Skin: no rash, warm/dry (Kamlesh John MD) Medical Decision Making Diagnostic Impression: Primary Impression: Fall Qualified Codes: W19.XXXA - Unspecified fall, initial encounter Additional Impressions: Abdominal pain Qualified Codes: R10.11 - Right upper quadrant pain Right rib fracture Qualified Codes: S22.41XA - Multiple fractures of ribs, right side, initial encounter for closed fracture ER Course Overall this patient's evaluation is benign. However, given the fall, the patient is pending CT of the abdomen and pelvis at turnover to Dr. Mcqueen. Laboratory Tests Test 07/02/19 13:13 White Blood Count 8.0 K/UL (4.8-10.8) Red Blood Count 4.56 M/UL (4.20-5.40) Hemoglobin 14.8 G/DL (12.0-16.0) Hematocrit 44.2 % (37.0-47.0) Mean Corpuscular Volume 97 FL (80-99) Mean Corpuscular Hemoglobin 32.4 PG (27.0-31.0) H Mean Corpuscular Hemoglobin Concent 33.4 G/DL (32.0-36.0) Red Cell Distribution Width 14.7 % (11.6-14.8) Platelet Count 220 K/UL (150-450) Mean Platelet Volume 5.8 FL (6.5-10.1) L Neutrophils (%) (Auto) 64.5 % (45.0-75.0) Lymphocytes (%) (Auto) 21.3 % (20.0-45.0) Monocytes (%) (Auto) 7.6 % (1.0-10.0) Eosinophils (%) (Auto) 4.5 % (0.0-3.0) H Basophils (%) (Auto) 2.1 % (0.0-2.0) H Prothrombin Time 10.9 SEC (9.30-11.50) Prothrombin Time INR 1.0 (0.9-1.1) PTT 20 SEC (23-33) L Urine Color Pale yellow Urine Appearance Clear Urine pH 7 (4.5-8.0) Urine Specific [place] 1.010 (1.005-1.035) Urine Protein Negative (NEGATIVE) Urine Glucose (UA) Negative (NEGATIVE) Urine Ketones Negative (NEGATIVE) Urine Blood Negative (NEGATIVE) Urine Nitrite Negative (NEGATIVE) Urine Bilirubin Negative (NEGATIVE) Urine Urobilinogen Normal MG/DL (0.0-1.0) Urine Leukocyte Esterase 3+ (NEGATIVE) H Urine RBC 0 /HPF (0 - 2) Urine WBC 10-15 /HPF (0 - 2) H Urine Squamous Epithelial Cells Occasional /LPF Urine Bacteria Few /HPF (NONE) Sodium Level 139 MMOL/L (136-145) Potassium Level 4.6 MMOL/L (3.5-5.1) Chloride Level 105 MMOL/L (98-107) Carbon Dioxide Level 25 MMOL/L (21-32) Anion Gap 9 mmol/L (5-15) Blood Urea Nitrogen 17 mg/dL (7-18) Creatinine 0.9 MG/DL (0.55-1.30) Estimate Glomerular Filtration Rate mL/min (>60) Glucose Level 104 MG/DL (74-106) Calcium Level 9.5 MG/DL (8.5-10.1) Total Bilirubin 0.5 MG/DL (0.2-1.0) Aspartate Amino Transferase (AST) 19 U/L (15-37) Alanine Aminotransferase (ALT) 17 U/L (12-78) Alkaline Phosphatase 64 U/L (46-116) Total Protein 7.9 G/DL (6.4-8.2) Albumin 3.4 G/DL (3.4-5.0) Globulin 4.5 g/dL Albumin/Globulin Ratio 0.8 (1.0-2.7) L (China Curtis DO) ER Course Patient with mechanical fall, will do trauma work-up, patient found to have rib fractures clinically, patient on CT has rib fracture of 9 and 10, patient will be admitted for acute pain control, and incentive spirometry Laboratory Tests Test 07/02/19 13:13 White Blood Count 8.0 K/UL (4.8-10.8) Red Blood Count 4.56 M/UL (4.20-5.40) Hemoglobin 14.8 G/DL (12.0-16.0) Hematocrit 44.2 % (37.0-47.0) Mean Corpuscular Volume 97 FL (80-99) Mean Corpuscular Hemoglobin 32.4 PG (27.0-31.0) H Mean Corpuscular Hemoglobin Concent 33.4 G/DL (32.0-36.0) Red Cell Distribution Width 14.7 % (11.6-14.8) Platelet Count 220 K/UL (150-450) Mean Platelet Volume 5.8 FL (6.5-10.1) L Neutrophils (%) (Auto) 64.5 % (45.0-75.0) Lymphocytes (%) (Auto) 21.3 % (20.0-45.0) Monocytes (%) (Auto) 7.6 % (1.0-10.0) Eosinophils (%) (Auto) 4.5 % (0.0-3.0) H Basophils (%) (Auto) 2.1 % (0.0-2.0) H Prothrombin Time 10.9 SEC (9.30-11.50) Prothrombin Time INR 1.0 (0.9-1.1) PTT 20 SEC (23-33) L Urine Color Pale yellow Urine Appearance Clear Urine pH 7 (4.5-8.0) Urine Specific [place] 1.010 (1.005-1.035) Urine Protein Negative (NEGATIVE) Urine Glucose (UA) Negative (NEGATIVE) Urine Ketones Negative (NEGATIVE) Urine Blood Negative (NEGATIVE) Urine Nitrite Negative (NEGATIVE) Urine Bilirubin Negative (NEGATIVE) Urine Urobilinogen Normal MG/DL (0.0-1.0) Urine Leukocyte Esterase 3+ (NEGATIVE) H Urine RBC 0 /HPF (0 - 2) Urine WBC 10-15 /HPF (0 - 2) H Urine Squamous Epithelial Cells Occasional /LPF Urine Bacteria Few /HPF (NONE) Sodium Level 139 MMOL/L (136-145) Potassium Level 4.6 MMOL/L (3.5-5.1) Chloride Level 105 MMOL/L (98-107) Carbon Dioxide Level 25 MMOL/L (21-32) Anion Gap 9 mmol/L (5-15) Blood Urea Nitrogen 17 mg/dL (7-18) Creatinine 0.9 MG/DL (0.55-1.30) Estimate Glomerular Filtration Rate mL/min (>60) Glucose Level 104 MG/DL (74-106) Calcium Level 9.5 MG/DL (8.5-10.1) Total Bilirubin 0.5 MG/DL (0.2-1.0) Aspartate Amino Transferase (AST) 19 U/L (15-37) Alanine Aminotransferase (ALT) 17 U/L (12-78) Alkaline Phosphatase 64 U/L (46-116) Total Protein 7.9 G/DL (6.4-8.2) Albumin 3.4 G/DL (3.4-5.0) Globulin 4.5 g/dL Albumin/Globulin Ratio 0.8 (1.0-2.7) L (Kamlesh John MD) EKG Diagnostic Results Rate: normal Rhythm: other - A.fib ST Segments: no acute changes (China Curtis DO) Rhythm Strip Diag. Results EP Interpretation: yes Rate: 80's Rhythm: other - A.fib (China Curtis DO) Rhythm Strip Time: 15:49 EP Interpretation: yes Rate: 76 Rhythm: NSR, no PVC's, no ectopy (Kamlesh John MD) CT/MRI/US Diagnostic Results CT/MRI/US Diagnostic Results : Imaging Test Ordered: CT abd/pelvis Impression Pending. (China Curtis. ) CT/MRI/US Diagnostic Results : Impression CT brain: No acute processes Findings: There are minimally displaced fractures of the right anterolateral eighth and bilateral ninth ribs. No other fractures are demonstrated. There is minimal thickening of the adjacent musculature probably representing mild contusion. No pneumothorax. The included lung bases demonstrate considerable atelectasis of much of the left lower lobe. There is also some calcification in the left lower lobe. There is some atelectasis and scarring involving the visualized right lower lobe. There is a trace right pleural effusion which is not evident previously. The parenchymal changes at both lung bases are increased from the previous study Lack of enteric contrast limits assessment of the GI tract. Again demonstrated is colonic diverticulosis. No findings to suggest acute diverticulitis are evident. The appendix is normal. Again demonstrated is a midline surgical scar. No small bowel distention. No free or loculated intraperitoneal gas or fluid is evident. The distal esophagus, stomach, duodenum are unremarkable. The liver demonstrates a subcentimeter low-attenuation lesion in segment 8 which is similar to the previous exam. A calcification is seen in the dome of the right hepatic lobe and another within segment 4A. There is a 1.5 cm soft tissue attenuation lesion adjacent to or coming off of the posterior right hepatic lobe. The gallbladder, bile ducts are unremarkable. The pancreas is diffusely fatty replaced. Granulomatous calcifications are seen within the spleen. The adrenals are unremarkable. The kidneys demonstrate contour lobulation, are otherwise unremarkable. No renal or ureteral calculi, hydronephrosis, or hydroureter demonstrated. No pelvic mass or adenopathy. The uterus is absent, presumably postsurgically. No retroperitoneal or mesenteric mass or adenopathy. There is fusiform ectasia of the distal abdominal aorta, which is not quite aneurysmal. The common iliac arteries are also ectatic. There is evidence of a soft tissue lipoma in the left buttock intermuscular fat Impression: Positive for lateral eighth and ninth rib fractures No evidence of acute solid organ or other significant soft tissue trauma Bilateral basilar pulmonary parenchymal atelectatic changes, left greater than right. Small right pleural effusion 1.5 cm soft tissue attenuation nodule either adjacent to or coming off of the posterior right hepatic lobe. Significance uncertain, also evident previously in retrospect. Colonic diverticulosis. No evidence of diverticulitis Subcentimeter low-attenuation right lobe liver lesion, too small to characterize , most likely benign simple cyst or bile hamartomas, also reported previously Fusiform ectasia of the distal abdominal aorta, not quite aneurysmal Other findings as noted, including evidence of prior hysterectomy, bilateral renal scarring, granulomatous calcifications within the liver and spleen, fatty replacement of the pancreas, left buttock lipoma Findings discussed by phone with Dr. John in the emergency room at the time of interpretation The CT scanner at [facility] is accredited by the [employer] and the scans are performed using protocols designed to limit radiation exposure to as low as reasonably achievable to attain images of sufficient resolution adequate for diagnostic evaluation. Dictated By: Jose Clay MD Electronically Signed By: Jose Clay MD Signed Date/Time 07/02/19 1509 CC: China Curtis DO (Kamlesh John MD) Last Vital Signs Date Time Temp Pulse Resp B/P (MAP) Pulse Ox O2 Delivery O2 Flow Rate FiO2 07/02/19 13:45 98.0 79 18 148/77 97 Room Air (China Curtis DO) Disposition: ADMITTED INPATIENT Condition: Stable Referrals: Devon Coronel MD (PCP) China Curtis DO Jul 02, 2019 14:50 Kamlesh John MD Jul 02, 2019 15:50
--- NOTE | 2019-07-02 15:14 | Diagnostic Imaging Report ---
Clinical Indication: Abdominal pain right-sided abdominal pain after trip and fall injury 3 days earlier Technique: No oral contrast utilized, per emergency room physician request IV administration nonionic contrast. Venous phase spiral acquisition obtained through the abdomen and pelvis. Multiplanar reconstructions were generated. Total dose length product 1422.35 mGycm. CTDIvol(s) 26.25 mGy. Dose reduction achieved using automated exposure control Comparison: 05/02/2019 Findings: There are minimally displaced fractures of the right anterolateral eighth and bilateral ninth ribs. No other fractures are demonstrated. There is minimal thickening of the adjacent musculature probably representing mild contusion. No pneumothorax. The included lung bases demonstrate considerable atelectasis of much of the left lower lobe. There is also some calcification in the left lower lobe. There is some atelectasis and scarring involving the visualized right lower lobe. There is a trace right pleural effusion which is not evident previously. The parenchymal changes at both lung bases are increased from the previous study Lack of enteric contrast limits assessment of the GI tract. Again demonstrated is colonic diverticulosis. No findings to suggest acute diverticulitis are evident. The appendix is normal. Again demonstrated is a midline surgical scar. No small bowel distention. No free or loculated intraperitoneal gas or fluid is evident. The distal esophagus, stomach, duodenum are unremarkable. The liver demonstrates a subcentimeter low-attenuation lesion in segment 8 which is similar to the previous exam. A calcification is seen in the dome of the right hepatic lobe and another within segment 4A. There is a 1.5 cm soft tissue attenuation lesion adjacent to or coming off of the posterior right hepatic lobe. The gallbladder, bile ducts are unremarkable. The pancreas is diffusely fatty replaced. Granulomatous calcifications are seen within the spleen. The adrenals are unremarkable. The kidneys demonstrate contour lobulation, are otherwise unremarkable. No renal or ureteral calculi, hydronephrosis, or hydroureter demonstrated. No pelvic mass or adenopathy. The uterus is absent, presumably postsurgically. No retroperitoneal or mesenteric mass or adenopathy. There is fusiform ectasia of the distal abdominal aorta, which is not quite aneurysmal. The common iliac arteries are also ectatic. There is evidence of a soft tissue lipoma in the left buttock intermuscular fat Impression: Positive for lateral eighth and ninth rib fractures No evidence of acute solid organ or other significant soft tissue trauma Bilateral basilar pulmonary parenchymal atelectatic changes, left greater than right. Small right pleural effusion 1.5 cm soft tissue attenuation nodule either adjacent to or coming off of the posterior right hepatic lobe. Significance uncertain, also evident previously in retrospect. Colonic diverticulosis. No evidence of diverticulitis Subcentimeter low-attenuation right lobe liver lesion, too small to characterize, most likely benign simple cyst or bile hamartomas, also reported previously Fusiform ectasia of the distal abdominal aorta, not quite aneurysmal Other findings as noted, including evidence of prior hysterectomy, bilateral renal scarring, granulomatous calcifications within the liver and spleen, fatty replacement of the pancreas, left buttock lipoma Findings discussed by phone with Dr. John in the emergency room at the time of interpretation The CT scanner at [facility] is accredited by the [employer] and the scans are performed using protocols designed to limit radiation exposure to as low as reasonably achievable to attain images of sufficient resolution adequate for diagnostic evaluation.
[2019-07-02] MEDS ORDERED: Morphine Sulfate 4mg/ml Inj (IV USE ONLY) IVP ONE (15:30)
[2019-07-02 15:41] VITALS: BP 152/98
--- NOTE | 2019-07-02 16:16 | NUR ---
ED Nurse Note: Pt has schrader $533 and was witnessed by Suzan BRAVO. Pt will keep it with her.
--- NOTE | 2019-07-02 16:18 | NUR ---
ED Nurse Note: Report given to Alhaji BRAVO of Med Surg unit.
--- NOTE | 2019-07-02 16:32 | NUR ---
ED Nurse Note: Pt transferred to med surg unit via gurney with all belongings sent including schrader of $533.
--- NOTE | 2019-07-02 16:40 | NUR ---
NURSE NOTES: Patient came to unit by jose in stable condition. Alert and oriented x4. Complained of pain 5/10 on right rib area and pain medication given by ER nurse. Will continue to monitor. Skin intact and dry. Belonging checked with patient. Patient has schrader and wants to keep it with patient. IV dressing intact and dry. Bed lowest position. Call light within reach. Will continue to monitor.
[2019-07-02 17:00] VITALS: BP 141/89
--- NOTE | 2019-07-02 18:35 | Consultation ---
Consult Note Consult Note PCCM REFERRED BY: Devon Coronel MD REASON FOR REFERRAL: SOB/CP/Rib Fx HPI: 74F non-smoker h/o HTN, AF S/P failed CV x 3 on AC, CHF, hypothyroidism, obesity, OGD anxiety, SOB on home O2 for unknown reasons whom I previously saw @ [facility] p/w R upper abd and lower chest pain with SOB after a mechanical fall with R 8th and 9th minimally displaced rib Fx's. She is on home O2 for unknown reasons, has not had PFT's, is not on inhalers. PMH/PSH: Obesity Hypothyroidism HTN CHF AF S/P failed CV x 3 in the past ALL: Latex Active Scripts Medications Dose Route/Sig Max Daily Dose Days Date Category Dose Instructions Metoprolol Succinate* (Metoprolol Succinate) 25 Mg Tab.er.24h 25 Mg ORAL DAILY 05/05/19 Reported Synthroid* (Levothyroxine Sodium) 25 Mcg Tablet 25 Mcg ORAL DAILY 05/05/19 Reported Take in the morning on an empty stomach, at least 30 minutes before food. Amlodipine Besylate* (Amlodipine Besylate) 5 Mg Tablet 5 Mg ORAL DAILY 05/05/19 Reported Digoxin* (Digoxin) 125 Mcg Tablet 125 Mcg ORAL DAILY 05/05/19 Reported Eliquis (Apixaban) 5 Mg Tablet 5 Mg PO BID 05/05/19 Reported [Metoprolol Succinate XL] 25 MG Tabcr 25 Mg ORAL DAILY 30 05/05/19 Rx Norvasc (Amlodipine Besylate) 5 Mg Tablet 5 Mg ORAL BIDPRN PRN 30 05/05/19 Rx SHx: No T/E/D use, lived near a power plan in [place] years ago FHx: N/X ROS: Negative other than HPI PE: NAD, obese female, AAOX3 NC/AT, OPC c MMM Supple s LAD, 6 cm JVD CTA b s W/R/R, R lower chest TTP Ir Ir S/ND, c NABS, RUQ TTP No C/C, trace LEEROY Laboratory Tests Test 07/02/19 13:13 White Blood Count 8.0 K/UL (4.8-10.8) Red Blood Count 4.56 M/UL (4.20-5.40) Hemoglobin 14.8 G/DL (12.0-16.0) Hematocrit 44.2 % (37.0-47.0) Mean Corpuscular Volume 97 FL (80-99) Mean Corpuscular Hemoglobin 32.4 PG (27.0-31.0) H Mean Corpuscular Hemoglobin Concent 33.4 G/DL (32.0-36.0) Red Cell Distribution Width 14.7 % (11.6-14.8) Platelet Count 220 K/UL (150-450) Mean Platelet Volume 5.8 FL (6.5-10.1) L Neutrophils (%) (Auto) 64.5 % (45.0-75.0) Lymphocytes (%) (Auto) 21.3 % (20.0-45.0) Monocytes (%) (Auto) 7.6 % (1.0-10.0) Eosinophils (%) (Auto) 4.5 % (0.0-3.0) H Basophils (%) (Auto) 2.1 % (0.0-2.0) H Prothrombin Time 10.9 SEC (9.30-11.50) Prothromb Time International Ratio 1.0 (0.9-1.1) Activated Partial Thromboplast Time 20 SEC (23-33) L Urine Color Pale yellow Urine Appearance Clear Urine pH 7 (4.5-8.0) Urine Specific [place] 1.010 (1.005-1.035) Urine Protein Negative (NEGATIVE) Urine Glucose (UA) Negative (NEGATIVE) Urine Ketones Negative (NEGATIVE) Urine Blood Negative (NEGATIVE) Urine Nitrite Negative (NEGATIVE) Urine Bilirubin Negative (NEGATIVE) Urine Urobilinogen Normal MG/DL (0.0-1.0) Urine Leukocyte Esterase 3+ (NEGATIVE) H Urine RBC 0 /HPF (0 - 2) Urine WBC 10-15 /HPF (0 - 2) H Urine Squamous Epithelial Cells Occasional /LPF Urine Bacteria Few /HPF (NONE) Sodium Level 139 MMOL/L (136-145) Potassium Level 4.6 MMOL/L (3.5-5.1) Chloride Level 105 MMOL/L (98-107) Carbon Dioxide Level 25 MMOL/L (21-32) Anion Gap 9 mmol/L (5-15) Blood Urea Nitrogen 17 mg/dL (7-18) Creatinine 0.9 MG/DL (0.55-1.30) Estimat Glomerular Filtration Rate mL/min (>60) Glucose Level 104 MG/DL (74-106) Calcium Level 9.5 MG/DL (8.5-10.1) Total Bilirubin 0.5 MG/DL (0.2-1.0) Aspartate Amino Transf (AST/SGOT) 19 U/L (15-37) Alanine Aminotransferase (ALT/SGPT) 17 U/L (12-78) Alkaline Phosphatase 64 U/L (46-116) Total Protein 7.9 G/DL (6.4-8.2) Albumin 3.4 G/DL (3.4-5.0) Globulin 4.5 g/dL Albumin/Globulin Ratio 0.8 (1.0-2.7) L 05/02/19 CT CAP: 1. No pulmonary embolus identified. 2. Ectasia of the ascending aorta measuring 4.1 cm in diameter. No aortic dissection. 3. Left-sided pleural thickening and/or trace effusion. Some nodular pleural thickening is seen posterior medially. Subpleural nodular densities at the left lung apex, the largest measuring 6 mm. 4. Old granulomatous disease. 5. No abnormalities in abdomen 07/02/19 CT AP: Impression: Positive for lateral eighth and ninth rib fractures No evidence of acute solid organ or other significant soft tissue trauma Bilateral basilar pulmonary parenchymal atelectatic changes, left greater than right. Small right pleural effusion 1.5 cm soft tissue attenuation nodule either adjacent to or coming off of the posterior right hepatic lobe. Significance uncertain, also evident previously in retrospect. Colonic diverticulosis. No evidence of diverticulitis Subcentimeter low-attenuation right lobe liver lesion, too small to characterize , most likely benign simple cyst or bile hamartomas, also reported previously Fusiform ectasia of the distal abdominal aorta, not quite aneurysmal Other findings as noted, including evidence of prior hysterectomy, bilateral renal scarring, granulomatous calcifications within the liver and spleen, fatty replacement of the pancreas, left buttock lipoma Assessment/Plan ASSESSMENT: * SOB, likely multifactorial 2/2 CHF/DD, anxiety, obesity, ? OHV/OSH + acute rib fractures * Mechanical fall ---> Acute minimally displaced R 8th and 9th rib fx's * Old granulomatous disease * L pleural thickening and scarring, ? sequlae of old infection, stable compared to chest cuts of CT A/P [facility] 06/2017 * Obesity * CHF with DD * AF S/P failed ablation x 3 in the past * Hypothyroidism * HTN, HL * Amiodarone usage but no e/o ILD on CT PLAN: * Optimize pulmonary hygiene/mobilize as tolerated * PRN O2 * PRN HHN's Pain control/supportive care * Needs an outpatient PET/CT, PFT and PSG - was previously supposed to F/U but cancelled appointment * Monitor volumes and renal function * F/U TTE * DVT Px: Eliquis * FC Dinesh Whyte MD Jul 02, 2019 18:35
[2019-07-02] MEDS ORDERED: Albuterol/Ipratropium 3ml neb HHN PRN (18:45)
[2019-07-02] MEDS: Metoprolol Succinate XL 25mg tab ORAL SCH (18:55)
[2019-07-02] MEDS: Eliquis 5mg tablet ORAL SCH (18:55)
--- NOTE | 2019-07-02 19:30 | NUR ---
HAND-OFF: Report given to Maxine RN. Patient in stable condition.
--- NOTE | 2019-07-02 19:30 | NUR ---
NURSE NOTES: Receive a report from SHELLY Mane. Round is done. Pt is awake and alert. Breathing is even and non labored. No acute distress noted. O2 2L NC inhalation. Lung sound is clear without wheezing. No noted discoloration on right chest area. Right chest area pain 7/10. Waiting for next dose pain medication. Left forearm IV site is clear without infiltration. Call light within reach. Will continue to monitor.
[2019-07-02 20:00] VITALS: BP 158/96
[2019-07-02] MEDS: Morphine Sulfate 2mg/ml Inj(IV/IM USE ONLY) IVP PRN (20:04)
[2019-07-03] VITALS: BP 134/87
[2019-07-03] MEDS: Morphine Sulfate 2mg/ml Inj(IV/IM USE ONLY) IVP PRN ×4 (00:18→18:31)
[2019-07-03 04:45] VITALS: BP 127/78
--- NOTE | 2019-07-03 06:00 | NUR ---
NURSE NOTES: Pt is awake and alert. Provide pain medication for right rib area pain. No dyspnea noted. On O2 2L NC inhalation. Will continue to monitor.
[2019-07-03 06:28] LABS: BASOPHILS % (AUTO) 1.4 % (0.0-2.0); EOSINOPHILS % (AUTO) 6.1 % (0.0-3.0); HEMATOCRIT 42.6 % (37.0-47.0); HEMOGLOBIN 13.9 G/DL (12.0-16.0); LYMPHOCYTES % (AUTO) 21.5 % (20.0-45.0); MEAN CORPUSCULAR VOLUME 100 FL (80-99); NEUTROPHILS % (AUTO) 61.1 % (45.0-75.0); PLATELET COUNT 235 K/UL (150-450); RED BLOOD COUNT 4.26 M/UL (4.20-5.40); RED CELL DISTRIBUTION WIDTH 12.8 % (11.6-14.8); WHITE BLOOD COUNT 8.1 K/UL (4.8-10.8)
[2019-07-03 07:20] LABS: ANION GAP 7 mmol/L (5-15); BLOOD UREA NITROGEN 20 mg/dL (7-18); CALCIUM 9.2 MG/DL (8.5-10.1); CARBON DIOXIDE 28 MMOL/L (21-32); CHLORIDE 103 MMOL/L (98-107); CREATININE 1.1 MG/DL (0.55-1.30); POTASSIUM 4.6 MMOL/L (3.5-5.1); SODIUM 138 MMOL/L (136-145)
--- NOTE | 2019-07-03 07:45 | NUR ---
HAND-OFF: Report given to SHELLY Blkae. Round is done.
--- NOTE | 2019-07-03 07:45 | NUR ---
NURSE NOTES: Patient is in bed awake and able to verbalize needs. Stable. Denies pain or SOB at this time. Patient encouraged to use call light for assistance, verbalized understanding. Patient in bed in locked and lowest position with call light within reach. Will continue to monitor.
[2019-07-03 08:00] VITALS: BP_SYST 121; BP_SYST 147; BP_DIAS 110; BP_DIAS 77
--- NOTE | 2019-07-03 08:25 | Pulmonology Progress Note ---
Assessment/Plan Assessment/Plan ASSESSMENT: * SOB, likely multifactorial 2/2 CHF/DD, anxiety, obesity, ? OHV/OSH + acute rib fractures * Mechanical fall ---> Acute minimally displaced R 8th and 9th rib fx's * Old granulomatous disease * L pleural thickening and scarring, ? sequlae of old infection, stable compared to chest cuts of CT A/P [facility] 06/2017 * Obesity * CHF with DD * AF S/P failed ablation x 3 in the past * Hypothyroidism * HTN, HL * Amiodarone usage but no e/o ILD on CT PLAN: * Optimize pulmonary hygiene/mobilize as tolerated * PRN O2 * PRN HHN's * Pain control/supportive care * Rapid flu and viral panel * Flonase * Needs an outpatient PET/CT, PFT and PSG - was previously supposed to F/U but cancelled appointment * Monitor volumes and renal function * F/U TTE * DVT Px: Eliquis * FC Subjective Allergies: Coded Allergies: LATEX (Verified Allergy, Unknown, 05/02/19) Subjective AFVSS pain better + rhinorrhea and congestion with sneezing no change in SOB Asks for O2 but oxygenation stable on RA + anxious no change in pain no FC OOB Objective Last 24 Hour Vital Signs Date Time Temp Pulse Resp B/P (MAP) Pulse Ox O2 Delivery O2 Flow Rate FiO2 07/03/19 07:37 80 19 93 Room Air 21 07/03/19 04:45 97.9 73 18 127/78 (94) 94 07/03/19 00:00 97.8 85 18 134/87 (103) 97 07/02/19 21:00 Nasal Cannula 2.0 07/02/19 20:00 97.3 94 18 158/96 (116) 97 07/02/19 19:01 86 20 96 Nasal Cannula 2.0 28 07/02/19 18:55 88 141/89 07/02/19 17:00 97.8 88 20 141/89 (106) 99 07/02/19 16:48 Nasal Cannula 2.0 07/02/19 16:32 98.0 79 19 148/90 100 Room Air 07/02/19 16:02 98.3 07/02/19 15:41 98.3 84 16 152/98 99 Room Air 07/02/19 13:45 98.0 79 18 148/77 97 Room Air 07/02/19 11:42 97.5 88 16 160/93 95 Room Air 07/02/19 11:42 88 16 Room Air 07/02/19 11:29 97.5 92 18 91/68 (76) 93 Room Air Intake and Output 07/02/19 07/03/19 18:59 06:59 Intake Total 350 ml 50 ml Balance 350 ml 50 ml Intake Oral 350 ml 50 ml # Voids 2 3 General Appearance: WD/WN, no acute distress HEENT: normocephalic, atraumatic, anicteric, mucous membranes moist Respiratory/Chest: chest wall non-tender, lungs clear, normal breath sounds, no respiratory distress, no accessory muscle use Cardiovascular: normal peripheral pulses, normal rate, regular rhythm Abdomen: normal bowel sounds, no organomegaly, non distended, tender - RUQ, other - soft Extremities: no cyanosis, no clubbing, no edema Laboratory Tests 07/02/19 13:13: White Blood Count 8.0, Red Blood Count 4.56, Hemoglobin 14.8, Hematocrit 44.2, Mean Corpuscular Volume 97, Mean Corpuscular Hemoglobin 32.4H, Mean Corpuscular Hemoglobin Concent 33.4, Red Cell Distribution Width 14.7, Platelet Count 220, Mean Platelet Volume 5.8L, Neutrophils (%) (Auto) 64.5, Lymphocytes (%) (Auto) 21.3, Monocytes (%) (Auto) 7.6, Eosinophils (%) (Auto) 4.5H, Basophils (%) (Auto ) 2.1H, Prothrombin Time 10.9, Prothromb Time International Ratio 1.0, Activated Partial Thromboplast Time 20L, Urine Color Pale yellow, Urine Appearance Clear, Urine pH 7, Urine Specific [place] 1.010, Urine Protein Negative, Urine Glucose (UA) Negative, Urine Ketones Negative, Urine Blood Negative, Urine Nitrite Negative, Urine Bilirubin Negative, Urine Urobilinogen Normal, Urine Leukocyte Esterase 3+H, Urine RBC 0, Urine WBC 10-15H, Urine Squamous Epithelial Cells Occasional, Urine Bacteria Few, Sodium Level 139, Potassium Level 4.6, Chloride Level 105, Carbon Dioxide Level 25, Anion Gap 9, Blood Urea Nitrogen 17, Creatinine 0.9, Estimat Glomerular Filtration Rate , Glucose Level 104, Calcium Level 9.5, Total Bilirubin 0.5, Aspartate Amino Transf (AST/SGOT) 19, Alanine Aminotransferase (ALT/SGPT) 17, Alkaline Phosphatase 64, Total Protein 7.9, Albumin 3.4, Globulin 4.5, Albumin/Globulin Ratio 0.8L 07/02/19 19:00: Arterial Blood pH 7.383, Arterial Blood Partial Pressure CO2 44.2, Arterial Blood Partial Pressure O2 86.2, Arterial Blood HCO3 25.7, Arterial Blood Oxygen Saturation 96.3, Arterial Blood Base Excess 0.4, Deric Test Positive 07/03/19 05:45: White Blood Count 8.1, Red Blood Count 4.26, Hemoglobin 13.9, Hematocrit 42.6, Mean Corpuscular Volume 100H, Mean Corpuscular Hemoglobin 32.6H, Mean Corpuscular Hemoglobin Concent 32.6, Red Cell Distribution Width 12.8, Platelet Count 235, Mean Platelet Volume 6.2L, Neutrophils (%) (Auto) 61.1, Lymphocytes ( %) (Auto) 21.5, Monocytes (%) (Auto) 10.0, Eosinophils (%) (Auto) 6.1H, Basophils (%) (Auto) 1.4, Sodium Level 138, Potassium Level 4.6, Chloride Level 103, Carbon Dioxide Level 28, Anion Gap 7, Blood Urea Nitrogen 20H, Creatinine 1.1, Estimat Glomerular Filtration Rate , Glucose Level 102, Calcium Level 9.2 Current Medications Medications (Trade) Dose Ordered Sig/Felipe Route PRN Reason Start Time Stop Time Status Last Admin Dose Admin Acetaminophen (Tylenol) 650 mg Q4H PRN ORAL Mild Pain/Temp > 100.5 07/02/19 17:15 08/01/19 17:14 Acetaminophen/ Hydrocodone Bitart ([place] 5/325) 1 tab Q4H PRN ORAL Moderate Pain (Pain Scale 4-6) 07/02/19 17:15 07/09/19 17:14 Albuterol/ Ipratropium (Albuterol/ Ipratropium) 3 ml Q4H PRN HHN Shortness of Breath 07/02/19 18:45 07/07/19 18:44 Amlodipine Besylate (Norvasc) 5 mg DAILY ORAL 07/03/19 09:00 08/02/19 08:59 Apixaban (Eliquis) 5 mg BID ORAL 07/02/19 18:00 08/01/19 17:59 07/02/19 18:55 Digoxin (Lanoxin) 0.125 mg DAILY ORAL 07/03/19 09:00 08/02/19 08:59 Iopamidol (Isovue-300 100ml) 100 ml NOW PRN INJ Radiology Procedure 07/02/19 12:45 Metoprolol Succinate (Toprol XL) 25 mg BID ORAL 07/02/19 18:00 08/01/19 17:59 07/02/19 18:55 Morphine Sulfate (Morphine Sulfate) 2 mg Q4H PRN IVP Severe Pain (Pain Scale 7-10) 07/02/19 17:15 07/09/19 17:14 07/03/19 05:35 Pantoprazole (Protonix) 40 mg DAILY ORAL 07/03/19 09:00 08/02/19 08:59 Dinesh Whyte MD Jul 03, 2019 08:25
[2019-07-03] MEDS: Eliquis 5mg tablet ORAL SCH ×2 (09:54→18:29)
[2019-07-03] MEDS: Metoprolol Succinate XL 25mg tab ORAL SCH ×2 (09:54→21:40)
[2019-07-03] MEDS: Digoxin 0.125mg tab ORAL SCH (09:56)
--- NOTE | 2019-07-03 10:14 | History & Physical ---
History and Physical History & Physicial seen and examined. Full Dictation completed on 1012 hours Devon Coronel MD Jul 03, 2019 10:14
--- NOTE | 2019-07-03 10:15 | General Progress Note ---
Assessment/Plan Assessment/Plan: seen and examined. Full Dictation in progress Plan: 1- Fall and Fracture of the right ribs Pulmonary, Ortho consulted current medical managment , including pian medication Subjective Allergies: Coded Allergies: LATEX (Verified Allergy, Unknown, 05/02/19) Objective Last 24 Hour Vital Signs Date Time Temp Pulse Resp B/P (MAP) Pulse Ox O2 Delivery O2 Flow Rate FiO2 07/03/19 09:56 68 07/03/19 09:54 71 147/110 07/03/19 09:54 71 147/110 07/03/19 09:00 Nasal Cannula 2.0 07/03/19 07:37 80 19 93 Room Air 21 07/03/19 04:45 97.9 73 18 127/78 (94) 94 07/03/19 00:00 97.8 85 18 134/87 (103) 97 07/02/19 21:00 Nasal Cannula 2.0 07/02/19 20:00 97.3 94 18 158/96 (116) 97 07/02/19 19:01 86 20 96 Nasal Cannula 2.0 28 07/02/19 18:55 88 141/89 07/02/19 17:00 97.8 88 20 141/89 (106) 99 07/02/19 16:48 Nasal Cannula 2.0 07/02/19 16:32 98.0 79 19 148/90 100 Room Air 07/02/19 16:02 98.3 07/02/19 15:41 98.3 84 16 152/98 99 Room Air 07/02/19 13:45 98.0 79 18 148/77 97 Room Air 07/02/19 11:42 97.5 88 16 160/93 95 Room Air 07/02/19 11:42 88 16 Room Air 07/02/19 11:29 97.5 92 18 91/68 (76) 93 Room Air Intake and Output 07/02/19 07/03/19 18:59 06:59 Intake Total 350 ml 50 ml Balance 350 ml 50 ml Intake Oral 350 ml 50 ml # Voids 2 3 Laboratory Tests 07/02/19 13:13: White Blood Count 8.0, Red Blood Count 4.56, Hemoglobin 14.8, Hematocrit 44.2, Mean Corpuscular Volume 97, Mean Corpuscular Hemoglobin 32.4H, Mean Corpuscular Hemoglobin Concent 33.4, Red Cell Distribution Width 14.7, Platelet Count 220, Mean Platelet Volume 5.8L, Neutrophils (%) (Auto) 64.5, Lymphocytes (%) (Auto) 21.3, Monocytes (%) (Auto) 7.6, Eosinophils (%) (Auto) 4.5H, Basophils (%) (Auto ) 2.1H, Prothrombin Time 10.9, Prothromb Time International Ratio 1.0, Activated Partial Thromboplast Time 20L, Urine Color Pale yellow, Urine Appearance Clear, Urine pH 7, Urine Specific [place] 1.010, Urine Protein Negative, Urine Glucose (UA) Negative, Urine Ketones Negative, Urine Blood Negative, Urine Nitrite Negative, Urine Bilirubin Negative, Urine Urobilinogen Normal, Urine Leukocyte Esterase 3+H, Urine RBC 0, Urine WBC 10-15H, Urine Squamous Epithelial Cells Occasional, Urine Bacteria Few, Sodium Level 139, Potassium Level 4.6, Chloride Level 105, Carbon Dioxide Level 25, Anion Gap 9, Blood Urea Nitrogen 17, Creatinine 0.9, Estimat Glomerular Filtration Rate , Glucose Level 104, Calcium Level 9.5, Total Bilirubin 0.5, Aspartate Amino Transf (AST/SGOT) 19, Alanine Aminotransferase (ALT/SGPT) 17, Alkaline Phosphatase 64, Total Protein 7.9, Albumin 3.4, Globulin 4.5, Albumin/Globulin Ratio 0.8L 07/02/19 19:00: Arterial Blood pH 7.383, Arterial Blood Partial Pressure CO2 44.2, Arterial Blood Partial Pressure O2 86.2, Arterial Blood HCO3 25.7, Arterial Blood Oxygen Saturation 96.3, Arterial Blood Base Excess 0.4, Deric Test Positive 07/03/19 05:45: White Blood Count 8.1, Red Blood Count 4.26, Hemoglobin 13.9, Hematocrit 42.6, Mean Corpuscular Volume 100H, Mean Corpuscular Hemoglobin 32.6H, Mean Corpuscular Hemoglobin Concent 32.6, Red Cell Distribution Width 12.8, Platelet Count 235, Mean Platelet Volume 6.2L, Neutrophils (%) (Auto) 61.1, Lymphocytes ( %) (Auto) 21.5, Monocytes (%) (Auto) 10.0, Eosinophils (%) (Auto) 6.1H, Basophils (%) (Auto) 1.4, Sodium Level 138, Potassium Level 4.6, Chloride Level 103, Carbon Dioxide Level 28, Anion Gap 7, Blood Urea Nitrogen 20H, Creatinine 1.1, Estimat Glomerular Filtration Rate , Glucose Level 102, Calcium Level 9.2 Height (Feet): 5 Height (Inches): 5.00 Weight (Pounds): 230 Devon Coronel MD Jul 03, 2019 10:15
[2019-07-03 12:00] VITALS: BP 137/87
--- NOTE | 2019-07-03 13:44 | Cardiology Report ---
APPROVED REPORT EXAM: Two-dimensional and M-mode echocardiogram with Doppler and color Doppler. M-Mode DIMENSIONS IVSd1.1 (0.7-1.1cm)Left Atrium (MM)5.1 (1.6-4.0cm) LVDd4.4 (3.5-5.6cm)Aortic Root2.8 (2.0-3.7cm) PWd1.4 (0.7-1.1cm)Aortic Cusp Exc.1.8 (1.5-2.0cm) LVDs3.1 (2.5-4.0cm) PWs1.7 cm Technically difficult study due to poor acoustic windows. Study quality precludes accurate assessment of regional wall motion. Normal left ventricular chamber size, systolic function and wall motion. Left ventricular ejection fraction estimated to be 55 %. Mild left ventricular hypertrophy. No evidence of pericardial effusion. Moderate left atrial enlargement. Mild right atrial enlargement. Right ventricular chamber sizes is within normal limits. Focal aortic valve sclerosis with adequate cusp excursion. Mildly thickened mitral valve leaflets with normal excursion. Mild mitral annulus and aortic root calcification. Pulmonic valve not well visualized. Normal tricuspid valve structure. IVC dilated at 2.3 cm with physiological collapse. A color flow and spectral Doppler study was performed and revealed: Mild to moderate aortic regurgitation. Moderate mitral regurgitation. Left ventricular diastolic function could not be determined due to A-Fib. Mild tricuspid regurgitation. Tricuspid systolic velocities suggests peak right ventricular systolic pressure of 33 mmHg. Trace pulmonic regurgitation present.
--- NOTE | 2019-07-03 14:30 | History and Physical Report ---
DATE OF ADMISSION: 07/02/2019 SOURCE OF INFORMATION: The patient and EMR. HISTORY OF PRESENT ILLNESS: The patient is a pleasant 74-year-old white female. The patient is here after she fell down at home, complaining of severe pain in the right aspect of her chest. The patient denies any episodes of losing consciousness. Denies any shortness of breath, nausea, vomiting, diarrhea, or constipation. ALLERGIES: Latex. FAMILY HISTORY: Reviewed and noncontributory. MEDICATIONS: Current hospital medications including digoxin, Eliquis, and amlodipine. PAST MEDICAL HISTORY: Hypertension, atrial fibrillation, asthma/COPD. SOCIAL HISTORY: The patient denies history of active smoking, tobacco use, or illicit drug abuse. PHYSICAL EXAMINATION: VITAL SIGNS: Blood pressure 120/80, temperature 98.2, pulse oximetry 98% on room air, respiratory rate 18. HEAD AND NECK: Atraumatic and normocephalic. CHEST: Clear to auscultation. Positive for the pain in the right side of the chest. NEUROLOGIC: The patient is awake, alert, and oriented x3. MUSCULOSKELETAL: No gross lateralized motor deficit. DIAGNOSTIC AND LABORATORY DATA: CT scan of the abdomen shows positive for acute fracture of the 8 and 9 rib, chronic diverticular disease, otherwise unremarkable for acute pathology. CT scan of the head dated July 02 is negative for acute pathology. Laboratories dated July 02 positive for 10 wbc's, positive for few bacteria. shows WBC of 8, platelet of 220. ASSESSMENT: 1. Acute mechanical fall, trauma-induced fracture of the ribs on the right side. 2. Acute pain secondary to acute mechanical fall. 3. Hypertension. 4. Atrial fibrillation. 5. Hyperlipidemia. 6. GI and DVT prophylaxis. PLAN OF CARE: I will start the patient on the pain medications and continue with pain management. Pulmonary notified. Continue with home medications. COMMENT: The time of this dictation does not reflect the actual time of encounter. Devon Coronel M.D. DR: NIDA JOB#: [id number] CC:
--- NOTE | 2019-07-03 15:30 | NUR ---
CASE MANAGEMENT:REVIEW 74 YR OLD FEMALE PRESENTED TO ER CC: TRIPPED AND FELL ON CARPET. HIT ABDOMEN SI: RT RIB FRACTURE. S/P FALL. ABDOMINAL PAIN 97.5 92 18 91/68 93% ON RA IS: IV MORPHINE URINE CX CT ABD/PELVIS CT HEAD TO TELEMETRY IS: IV MORPHINE Q4HRS PRN PLAN: ORTHOPEDIC CONSULT CALLED ~ DR GORDILLO
[2019-07-03 16:00] VITALS: BP 126/76
--- NOTE | 2019-07-03 19:30 | NUR ---
NURSE NOTES: Receive a report from SHELLY Blake. Round is done. Pt just uses bathroom via walker to assist and still noted right chest area pain but tolerable state after pain medication earlier. Breathing is even and non labored. No acute distress noted. Call light within reach. Will continue to monitor.
--- NOTE | 2019-07-03 19:32 | NUR ---
HAND-OFF: Report given to Arleto RN. Patient is stable.
[2019-07-03 20:00] VITALS: BP 146/91
--- NOTE | 2019-07-03 21:30 | NUR ---
NURSE NOTES: Noted sneezing and runny nose. Notify to MD and receive order of Claritin 10mg 1 t po daily as needed. Order noted and carried out. Will continue to monitor.
--- NOTE | 2019-07-03 22:15 | Consultation ---
DATE OF CONSULTATION: 07/03/2019 CONSULTING PHYSICIAN: Rey Don M.D. CHIEF COMPLAINT: Right rib pain. HISTORY OF PRESENT ILLNESS: The patient is a 74-year-old female who sustained a mechanical fall. She fall, landing on the right side. Had significant pain and discomfort. Had a CT scan of the chest, which showed multiple rib fractures. Orthopedic consultation was obtained for further care and recommendations. PAST MEDICAL HISTORY: Hypertension, atrial fibrillation, CHF, hypothyroidism, obesity, and anxiety. ALLERGIES: Latex. SOCIAL HISTORY: The patient resides at home. Does not smoke or drink. FAMILY HISTORY: Noncontributory. PHYSICAL EXAMINATION: GENERAL: The patient is resting comfortably on exam bed. VITAL SIGNS: Afebrile. Stable vital signs. MUSCULOSKELETAL: There is tenderness to palpation on right thoracic cage area. No ecchymosis. NEUROLOGIC: Sensation distribution to light touch. DIAGNOSTIC DATA: CT scan of the chest shows what appears to be eighth and ninth rib fracture. ASSESSMENT: Right eighth and ninth rib fracture. DISCUSSION: At this point, she has ____ minimally displaced rib fractures. What I recommend is incentive spirometer. Recommend appropriate pain management. Her symptoms will improve. It will take 6 to 12 weeks for the ribs to heal. She has continued issues. She may be candidate for intercostal block, but at this point, I would see how she does from critical pulmonary view. Nonsteroidal should be held given that they do decrease bone healing. She can take Tylenol as well as nonnarcotic pain medications such as Ultram. Rey Don M.D. DR: EL JOB#: [id number] CC: Devon Coronel M.D.; Fax#: [phone]
[2019-07-04] VITALS: BP 152/90
[2019-07-04] MEDS: Morphine Sulfate 2mg/ml Inj(IV/IM USE ONLY) IVP PRN ×2 (01:23→19:51)
[2019-07-04 04:55] VITALS: BP 128/92
--- NOTE | 2019-07-04 05:00 | NUR ---
NURSE NOTES: Runny nose and sneezing relieved. Pain is controlled after pain medication. Spo2 checked as 93-95 % in RA after removal O2 2L NC. No noted dyspnea or chest discomfort. Will continue to monitor.
--- NOTE | 2019-07-04 07:30 | NUR ---
HAND-OFF: Report given to SHELLY Hull. Round is done. Pt is having breakfast. Refuses to take pain medication now. Will continue to monitor.
--- NOTE | 2019-07-04 07:35 | NUR ---
NURSE NOTES: AWAKE/ALERT. PAIN SCALE 6/10. NO ACUTE SOB. IN NO ACUTE DISTRESS.
[2019-07-04 08:00] VITALS: BP 142/95
[2019-07-04] MEDS: Eliquis 5mg tablet ORAL SCH ×2 (08:33→17:33)
[2019-07-04] MEDS: Digoxin 0.125mg tab ORAL SCH (08:34)
[2019-07-04] MEDS: Metoprolol Succinate XL 25mg tab ORAL SCH ×2 (08:34→20:03)
[2019-07-04 12:00] VITALS: BP 137/91
[2019-07-04] MEDS: HYDROcodone/Acetamin 5/325 tab ORAL PRN ×2 (13:46→17:36)
--- NOTE | 2019-07-04 15:12 | General Progress Note ---
Assessment/Plan Assessment/Plan: S:my chest hurts O: Pain is well managed. No SOB PHYSICAL EXAMINATION:HEAD AND NECK: Atraumatic and normocephalic. CHEST: Clear to auscultation. Positive for the pain in the right side of the chest. NEUROLOGIC: The patient is awake, alert, and oriented x3. MUSCULOSKELETAL: No gross lateralized motor deficit. Meds and Labs : Are reviwed and reconcilled for DOS toady Jul 04 ASSESSMENT: 1. Acute mechanical fall, trauma-induced fracture of the ribs on the right side. 2. Acute pain secondary to acute mechanical fall. 3. Hypertension. 4. Atrial fibrillation. 5. Hyperlipidemia. 6. GI and DVT prophylaxis. PLAN OF CARE: Notes from pulmonary and Pain mgt reviewed Will FU Ortho Subjective Allergies: Coded Allergies: LATEX (Verified Allergy, Unknown, 05/02/19) Objective Last 24 Hour Vital Signs Date Time Temp Pulse Resp B/P (MAP) Pulse Ox O2 Delivery O2 Flow Rate FiO2 07/04/19 14:16 98.1 07/04/19 12:00 98.1 75 18 137/91 (106) 96 07/04/19 08:35 79 142/95 07/04/19 08:34 79 142/95 07/04/19 08:34 79 07/04/19 08:12 Nasal Cannula 2.0 07/04/19 08:00 98.6 79 16 142/95 (111) 96 07/04/19 07:15 76 20 94 Room Air 21 07/04/19 04:55 98.3 76 16 128/92 (104) 95 07/04/19 00:00 98.8 88 16 152/90 (110) 98 07/03/19 21:40 80 146/91 07/03/19 21:00 Nasal Cannula 2.0 07/03/19 20:48 85 19 95 Room Air 21 07/03/19 20:00 98.2 80 16 146/91 (109) 97 07/03/19 16:00 98.0 84 20 126/76 (93) 95 Intake and Output 07/03/19 07/04/19 18:59 06:59 Intake Total 300 ml 100 ml Balance 300 ml 100 ml Intake Oral 300 ml 100 ml # Voids 3 3 Height (Feet): 5 Height (Inches): 5.00 Weight (Pounds): 230 Rezvani,Mohammad MD Jul 04, 2019 15:12
[2019-07-04 16:00] VITALS: BP 146/93
--- NOTE | 2019-07-04 18:59 | NUR ---
NURSE NOTES: INNO ACUTE DISTRESS. CONDITION STABLE.
--- NOTE | 2019-07-04 18:59 | NUR ---
NURSE NOTES:Patient received from Della LennonPatient Denies any pain . no s/s of distress noted LFA g#20 H/L Patent and intact .safety / fall precautions . Call light within reach. Bed in low position at all times will continue to monitor . Addendum: 07/04/19 at 2353 by LAKHWINDER TORRES LVN Patient on o2L via N/C IN Placed .Bilateral lower Extremities SCDs on . will continue to monitor ..
--- NOTE | 2019-07-04 18:59 | NUR ---
HAND-OFF: Report given to Linette TORRES LVN.
[2019-07-04 20:00] VITALS: BP_SYST 133; BP_SYST 154; BP_DIAS 101; BP_DIAS 58
--- NOTE | 2019-07-04 20:40 | NUR ---
NURSE NOTES: NEW IV Line inserted on Right forearm g#22 H/L .Will continue to monitor .
--- NOTE | 2019-07-04 20:40 | Pulmonology Progress Note ---
Assessment/Plan Assessment/Plan ASSESSMENT: * SOB, likely multifactorial 2/2 CHF/DD, anxiety, obesity, ? OHV/OSH + acute rib fractures * Mechanical fall ---> Acute minimally displaced R 8th and 9th rib fx's * Old granulomatous disease * L pleural thickening and scarring, ? sequelae of old infection, stable compared to chest cuts of CT A/P [facility] 06/2017 * Obesity * CHF with DD * AF S/P failed ablation x 3 in the past * Hypothyroidism * HTN, HL * Amiodarone usage but no e/o ILD on CT PLAN: * Optimize pulmonary hygiene/mobilize as tolerated * PRN O2 * abdominal binder * PRN HHN's * Pain control/supportive care * Flonase * Needs an outpatient PET/CT, PFT and PSG - was previously supposed to F/U but cancelled appointment * Monitor volumes and renal function * F/U TTE * DVT Px: Eliquis * FC Subjective Constitutional: Reports: no symptoms Respiratory: Reports: shortness of breath, pleuritic pain Cardiovascular: Reports: no symptoms Gastrointestinal/Abdominal: Reports: no symptoms Allergies: Coded Allergies: LATEX (Verified Allergy, Unknown, 05/02/19) Subjective still wtih pain on o2 no nv or bleeding taking in po Objective Last 24 Hour Vital Signs Date Time Temp Pulse Resp B/P (MAP) Pulse Ox O2 Delivery O2 Flow Rate FiO2 07/04/19 20:03 83 154/101 07/04/19 18:06 98.2 07/04/19 16:00 98.2 80 18 146/93 (110) 96 07/04/19 16:00 98.2 80 18 146/93 (110) 96 07/04/19 12:00 98.1 75 18 137/91 (106) 96 07/04/19 08:35 79 142/95 07/04/19 08:34 79 142/95 07/04/19 08:34 79 07/04/19 08:12 Nasal Cannula 2.0 07/04/19 08:00 98.6 79 16 142/95 (111) 96 07/04/19 07:15 76 20 94 Room Air 21 07/04/19 04:55 98.3 76 16 128/92 (104) 95 07/04/19 00:00 98.8 88 16 152/90 (110) 98 07/03/19 21:40 80 146/91 07/03/19 21:00 Nasal Cannula 2.0 07/03/19 20:48 85 19 95 Room Air 21 Intake and Output 07/03/19 07/04/19 19:00 07:00 Intake Total 300 ml 100 ml Balance 300 ml 100 ml Intake Oral 300 ml 100 ml # Voids 3 3 General Appearance: WD/WN HEENT: normocephalic, atraumatic, anicteric Respiratory/Chest: crackles/rales Cardiovascular: normal rate, regularly irregular Abdomen: soft, non tender, no organomegaly Extremities: no cyanosis, no clubbing Skin: no rash, no ulcers Neurologic/Psychiatric: alert, oriented x 3, responsive Microbiology Date/Time Source Procedure Growth Status 07/02/19 13:13 Urine,Clean Catch Urine Culture - Final Mixed Gram Positive Organism Complete Current Medications Medications (Trade) Dose Ordered Sig/Felipe Route PRN Reason Start Time Stop Time Status Last Admin Dose Admin Acetaminophen (Tylenol) 650 mg Q4H PRN ORAL Mild Pain/Temp > 100.5 07/02/19 17:15 08/01/19 17:14 Acetaminophen/ Hydrocodone Bitart ([place] 5/325) 1 tab Q4H PRN ORAL Moderate Pain (Pain Scale 4-6) 07/02/19 17:15 07/09/19 17:14 07/04/19 17:36 Albuterol/ Ipratropium (Albuterol/ Ipratropium) 3 ml Q4H PRN HHN Shortness of Breath 07/02/19 18:45 07/07/19 18:44 Amlodipine Besylate (Norvasc) 5 mg DAILY ORAL 07/03/19 09:00 08/02/19 08:59 07/04/19 08:35 Apixaban (Eliquis) 5 mg BID ORAL 07/02/19 18:00 08/01/19 17:59 07/04/19 17:33 Digoxin (Lanoxin) 0.125 mg DAILY ORAL 07/03/19 09:00 08/02/19 08:59 07/04/19 08:34 Iopamidol (Isovue-300 100ml) 100 ml NOW PRN INJ Radiology Procedure 07/02/19 12:45 Loratadine (Claritin 10mg) 10 mg Q24H PRN ORAL SNEEZING AND RUNNY NOSE 07/03/19 21:30 08/02/19 21:29 07/03/19 21:43 Metoprolol Succinate (Toprol XL) 25 mg Q12HR ORAL 07/03/19 21:00 08/01/19 17:59 07/04/19 20:03 Morphine Sulfate (Morphine Sulfate) 2 mg Q4H PRN IVP Severe Pain (Pain Scale 7-10) 07/02/19 17:15 07/09/19 17:14 07/04/19 19:51 Pantoprazole (Protonix) 40 mg DAILY ORAL 07/03/19 09:00 08/02/19 08:59 07/04/19 08:33 Penelope Peoples DO Jul 04, 2019 20:40
[2019-07-05] VITALS (8 sets, daily range): BP systolic 121–152; BP diastolic 66–95
--- NOTE | 2019-07-05 03:13 | NUR ---
HAND-OFF: Report given to Brandon Sharpe R.N. Patient in stable conditions.
[2019-07-05] MEDS: Morphine Sulfate 2mg/ml Inj(IV/IM USE ONLY) IVP PRN ×4 (03:46→21:31)
--- NOTE | 2019-07-05 07:20 | NUR ---
HAND-OFF: Report given to SHELLY Hull.
--- NOTE | 2019-07-05 07:24 | NUR ---
NURSE NOTES: AWAKE/ALERT. NO C/O PAIN. IN NO DISTRESS.
[2019-07-05] MEDS: Eliquis 5mg tablet ORAL SCH ×2 (08:31→17:26)
[2019-07-05] MEDS: Digoxin 0.125mg tab ORAL SCH (08:32)
[2019-07-05] MEDS: Metoprolol Succinate XL 25mg tab ORAL SCH ×2 (08:32→20:15)
--- NOTE | 2019-07-05 13:12 | Cardiology Report ---
APPROVED REPORT EKG Measurement Heart [id number] Atrial fibrillation Possible Anterior infarct, age undetermined Abnormal ECG
--- NOTE | 2019-07-05 18:55 | Pulmonology Progress Note ---
Assessment/Plan Assessment/Plan ASSESSMENT: * SOB, likely multifactorial 2/2 CHF/DD, anxiety, obesity, ? OHV/OSH + acute rib fractures * Mechanical fall ---> Acute minimally displaced R 8th and 9th rib fx's * Old granulomatous disease * L pleural thickening and scarring, ? sequelae of old infection, stable compared to chest cuts of CT A/P [facility] 06/2017 * Obesity * CHF with DD * AF S/P failed ablation x 3 in the past * Hypothyroidism * HTN, HL * Amiodarone usage but no e/o ILD on CT PLAN: * Optimize pulmonary hygiene/mobilize as tolerated * PRN O2 * abdominal binder * PRN HHN's * Pain control/supportive care * Flonase * Needs an outpatient PET/CT, PFT and PSG - was previously supposed to F/U but cancelled appointment * Monitor volumes and renal function * F/U TTE * DVT Px: Eliquis * FC * dc am Subjective Constitutional: Reports: no symptoms HEENT: Repors: no symptoms Respiratory: Reports: dry cough, dyspnea on exertion, pleuritic pain Genitourinary: Reports: no symptoms Allergies: Coded Allergies: LATEX (Verified Allergy, Unknown, 05/02/19) Subjective still wtih pain on o2 abdominal binder helpful no nv or bleeding taking in po Objective Last 24 Hour Vital Signs Date Time Temp Pulse Resp B/P (MAP) Pulse Ox O2 Delivery O2 Flow Rate FiO2 07/05/19 16:00 98.0 72 18 134/78 (96) 95 07/05/19 14:23 98.2 07/05/19 12:00 98.2 79 17 137/81 (99) 94 07/05/19 09:15 Room Air 07/05/19 08:32 69 131/74 07/05/19 08:32 69 07/05/19 08:31 69 131/74 07/05/19 08:01 69 18 131/74 (93) 94 07/05/19 07:50 68 17 93 Room Air 21 07/05/19 07:50 93 Room Air 21 07/05/19 04:00 98.9 63 18 121/88 (99) 96 07/05/19 00:00 98.0 62 18 152/95 (114) 95 07/04/19 21:00 Nasal Cannula 2.0 07/04/19 20:03 83 154/101 8/24/19 20:00 98.4 83 18 154/101 (118) 95 07/04/19 20:00 93 Nasal Cannula 2.0 28 07/04/19 19:30 82 20 93 Nasal Cannula 2.0 28 Intake and Output 07/04/19 07/05/19 18:59 06:59 Intake Total 1000 ml 560 ml Balance 1000 ml 560 ml Intake Oral 1000 ml 560 ml # Voids 2 3 General Appearance: WD/WN Respiratory/Chest: lungs clear Cardiovascular: normal rate Abdomen: no organomegaly Extremities: no clubbing Neurologic/Psychiatric: no motor/sensory deficits, oriented x 3, responsive Musculoskeletal: normal muscle bulk Current Medications Medications (Trade) Dose Ordered Sig/Felipe Route PRN Reason Start Time Stop Time Status Last Admin Dose Admin Acetaminophen (Tylenol) 650 mg Q4H PRN ORAL Mild Pain/Temp > 100.5 07/02/19 17:15 08/01/19 17:14 Acetaminophen/ Hydrocodone Bitart ([place] 5/325) 1 tab Q4H PRN ORAL Moderate Pain (Pain Scale 4-6) 07/02/19 17:15 07/09/19 17:14 07/04/19 17:36 Albuterol/ Ipratropium (Albuterol/ Ipratropium) 3 ml Q4H PRN HHN Shortness of Breath 07/02/19 18:45 07/07/19 18:44 Amlodipine Besylate (Norvasc) 5 mg DAILY ORAL 07/03/19 09:00 08/02/19 08:59 07/05/19 08:31 Apixaban (Eliquis) 5 mg BID ORAL 07/02/19 18:00 08/01/19 17:59 07/05/19 17:26 Digoxin (Lanoxin) 0.125 mg DAILY ORAL 07/03/19 09:00 08/02/19 08:59 07/05/19 08:32 Iopamidol (Isovue-300 100ml) 100 ml NOW PRN INJ Radiology Procedure 07/02/19 12:45 Loratadine (Claritin 10mg) 10 mg Q24H PRN ORAL SNEEZING AND RUNNY NOSE 07/03/19 21:30 08/02/19 21:29 07/03/19 21:43 Metoprolol Succinate (Toprol XL) 25 mg Q12HR ORAL 07/03/19 21:00 08/01/19 17:59 07/05/19 08:32 Morphine Sulfate (Morphine Sulfate) 2 mg Q4H PRN IVP Severe Pain (Pain Scale 7-10) 07/02/19 17:15 07/09/19 17:14 07/05/19 13:53 Pantoprazole (Protonix) 40 mg DAILY ORAL 07/03/19 09:00 08/02/19 08:59 07/05/19 08:31 Penelope Peoples DO Jul 05, 2019 18:55
--- NOTE | 2019-07-05 19:03 | NUR ---
NURSE NOTES: RESTING IN BED. IN NO DISTRESS.
--- NOTE | 2019-07-05 19:08 | NUR ---
HAND-OFF: Report given to Linette FRIAS RN.
[2019-07-06] MEDS: Morphine Sulfate 2mg/ml Inj(IV/IM USE ONLY) IVP PRN ×2 (03:47→08:16)
[2019-07-06 04:00] VITALS: BP 135/84
--- NOTE | 2019-07-06 05:39 | NUR ---
NURSE NOTE: Pt is A/Ox4 with stable VS. Orders reviewed and physical assessment completed. Pt is wearing abdominal binder. R forearm PIV is patent and the dressing is clean, dry, and intact. PRN pain meds given as requested by pt. Call hollingsworth remains within reach. Will continue to monitor.
--- NOTE | 2019-07-06 07:30 | NUR ---
NURSE NOTES: Patient is in bed awake and able to verbalize needs. Stable. Denies pain or SOB. Patient is encouraged to use call light for assistance, verbalized understanding. Patient is in bed in locked and lowest position with call light within reach. Will continue to monitor.
--- NOTE | 2019-07-06 07:35 | NUR ---
HAND-OFF: Report given to Lou. Pt is stable,endorsed plan of care.
[2019-07-06 08:00] VITALS: BP 155/83
[2019-07-06] MEDS: Metoprolol Succinate XL 25mg tab ORAL SCH (08:16)
[2019-07-06] MEDS: Eliquis 5mg tablet ORAL SCH (08:16)
[2019-07-06] MEDS: Digoxin 0.125mg tab ORAL SCH (08:21)
--- NOTE | 2019-07-06 08:40 | Consultation ---
History of Present Illness General Date patient seen: Jul 06, 2019 Present Illness Allergies: Coded Allergies: LATEX (Verified Allergy, Unknown, 05/02/19) Medication History Scheduled Amlodipine Besylate* (Amlodipine Besylate*), 5 MG ORAL DAILY, (Reported) Apixaban (Eliquis), 5 MG PO BID, (Reported) Digoxin* (Digoxin*), 125 MCG ORAL DAILY, (Reported) Levothyroxine Sodium* (Synthroid*), 25 MCG ORAL DAILY, (Reported) Metoprolol Succinate* (Metoprolol Succinate*), 25 MG ORAL DAILY, (Reported) [Metoprolol Succinate XL], 25 MG ORAL DAILY Scheduled PRN Amlodipine Besylate (Norvasc), 5 MG ORAL BIDPRN PRN Hydrocodone Bit/Acetaminophen 5-325* ([place] 5-325*), 1 TAB ORAL Q4H PRN Patient History Healthcare decision maker N Resuscitation status Full Code Advanced Directive on File Physical Exam Last 24 Hour Vital Signs Date Time Temp Pulse Resp B/P (MAP) Pulse Ox O2 Delivery O2 Flow Rate FiO2 07/06/19 08:21 72 07/06/19 08:16 81 155/84 07/06/19 08:16 81 155/84 07/06/19 04:00 98.0 68 18 135/84 (101) 97 07/05/19 23:50 98.1 77 18 137/66 (89) 96 07/05/19 23:16 77 17 95 Room Air 21 07/05/19 23:16 95 Room Air 21 07/05/19 21:18 Room Air 07/05/19 20:15 73 137/88 07/05/19 20:12 98.1 73 17 137/88 (104) 97 07/05/19 16:00 98.0 72 18 134/78 (96) 95 07/05/19 14:23 98.2 07/05/19 12:00 98.2 79 17 137/81 (99) 94 07/05/19 09:15 Room Air Intake and Output 07/05/19 07/06/19 19:00 07:00 Intake Total 1000 ml 480 ml Balance 1000 ml 480 ml Intake Oral 1000 ml 480 ml # Voids 3 Height (Feet): 5 Height (Inches): 5.00 Weight (Pounds): 230 Medications Current Medications Medications (Trade) Dose Ordered Sig/Felipe Route PRN Reason Start Time Stop Time Status Last Admin Dose Admin Acetaminophen (Tylenol) 650 mg Q4H PRN ORAL Mild Pain/Temp > 100.5 07/02/19 17:15 08/01/19 17:14 Acetaminophen/ Hydrocodone Bitart ([place] 5/325) 1 tab Q4H PRN ORAL Moderate Pain (Pain Scale 4-6) 07/02/19 17:15 07/09/19 17:14 07/04/19 17:36 Albuterol/ Ipratropium (Albuterol/ Ipratropium) 3 ml Q4H PRN HHN Shortness of Breath 07/02/19 18:45 07/07/19 18:44 Amlodipine Besylate (Norvasc) 5 mg DAILY ORAL 07/03/19 09:00 08/02/19 08:59 07/06/19 08:16 Apixaban (Eliquis) 5 mg BID ORAL 07/02/19 18:00 08/01/19 17:59 07/06/19 08:16 Digoxin (Lanoxin) 0.125 mg DAILY ORAL 07/03/19 09:00 08/02/19 08:59 07/06/19 08:21 Iopamidol (Isovue-300 100ml) 100 ml NOW PRN INJ Radiology Procedure 07/02/19 12:45 Loratadine (Claritin 10mg) 10 mg Q24H PRN ORAL SNEEZING AND RUNNY NOSE 07/03/19 21:30 08/02/19 21:29 07/03/19 21:43 Metoprolol Succinate (Toprol XL) 25 mg Q12HR ORAL 07/03/19 21:00 08/01/19 17:59 07/06/19 08:16 Morphine Sulfate (Morphine Sulfate) 2 mg Q4H PRN IVP Severe Pain (Pain Scale 7-10) 07/02/19 17:15 07/09/19 17:14 07/06/19 08:16 Pantoprazole (Protonix) 40 mg DAILY ORAL 07/03/19 09:00 08/02/19 08:59 07/06/19 08:15 Assessment/Plan Assessment/Plan: (1) Right chest wall pain (2) Rib fractures seen dictated Juan Morillo Jul 06, 2019 08:40
[2019-07-06] MEDS ORDERED: NORCO 5-325 TA1 EACH ORAL (09:50)
--- NOTE | 2019-07-06 09:52 | General Progress Note ---
Assessment/Plan Assessment/Plan: S:my chest hurts O: Pain is well managed. No SOB PHYSICAL EXAMINATION:HEAD AND NECK: Atraumatic and normocephalic. CHEST: Clear to auscultation. Positive for the pain in the right side of the chest. NEUROLOGIC: The patient is awake, alert, and oriented x3. MUSCULOSKELETAL: No gross lateralized motor deficit. Meds and Labs : Are reviwed and reconcilled for DOS toady Jul 04 ASSESSMENT: 1. Acute mechanical fall, trauma-induced fracture of the ribs on the right side. 2. Acute pain secondary to acute mechanical fall. 3. Hypertension. 4. Atrial fibrillation. 5. Hyperlipidemia. 6. GI and DVT prophylaxis. PLAN OF CARE: Notes from pulmonary and Pain mgt reviewed Ok to fu as OP Subjective Allergies: Coded Allergies: LATEX (Verified Allergy, Unknown, 05/02/19) Objective Last 24 Hour Vital Signs Date Time Temp Pulse Resp B/P (MAP) Pulse Ox O2 Delivery O2 Flow Rate FiO2 07/06/19 08:21 72 07/06/19 08:16 81 155/84 07/06/19 08:16 81 155/84 07/06/19 04:00 98.0 68 18 135/84 (101) 97 07/05/19 23:50 98.1 77 18 137/66 (89) 96 07/05/19 23:16 77 17 95 Room Air 21 07/05/19 23:16 95 Room Air 21 07/05/19 21:18 Room Air 07/05/19 20:15 73 137/88 07/05/19 20:12 98.1 73 17 137/88 (104) 97 07/05/19 16:00 98.0 72 18 134/78 (96) 95 07/05/19 14:23 98.2 07/05/19 12:00 98.2 79 17 137/81 (99) 94 Intake and Output 07/05/19 07/06/19 19:00 07:00 Intake Total 1000 ml 480 ml Balance 1000 ml 480 ml Intake Oral 1000 ml 480 ml # Voids 3 Height (Feet): 5 Height (Inches): 5.00 Weight (Pounds): 230 Devon Coronel MD Jul 06, 2019 09:52
[2019-07-06 12:00] VITALS: BP 133/86
--- NOTE | 2019-07-06 12:02 | Pulmonology Progress Note ---
Assessment/Plan Assessment/Plan ASSESSMENT: * SOB, likely multifactorial 2/2 CHF/DD, anxiety, obesity, ? OHV/OSH + acute rib fractures * Mechanical fall ---> Acute minimally displaced R 8th and 9th rib fx's * Old granulomatous disease * L pleural thickening and scarring, ? sequlae of old infection, stable compared to chest cuts of CT A/P [facility] 06/2017 * Obesity * CHF with DD * AF S/P failed ablation x 3 in the past * Hypothyroidism * HTN, HL * Amiodarone usage but no e/o ILD on CT PLAN: * Optimize pulmonary hygiene/mobilize as tolerated * PRN O2 * PRN HHN's * Pain control/supportive care * Flonase * Needs an outpatient PET/CT, PFT and PSG - was previously supposed to F/U but cancelled appointment * Monitor volumes and renal function * DVT Px: Eliquis * FC Subjective Allergies: Coded Allergies: LATEX (Verified Allergy, Unknown, 05/02/19) Subjective AFVSS pain better No longer sneezing no cough no SOB Objective Last 24 Hour Vital Signs Date Time Temp Pulse Resp B/P (MAP) Pulse Ox O2 Delivery O2 Flow Rate FiO2 07/06/19 09:00 Nasal Cannula 2.0 07/06/19 08:21 72 07/06/19 08:16 81 155/84 07/06/19 08:16 81 155/84 07/06/19 08:00 98.4 81 18 155/83 (107) 94 07/06/19 04:00 98.0 68 18 135/84 (101) 97 07/05/19 23:50 98.1 77 18 137/66 (89) 96 07/05/19 23:16 77 17 95 Room Air 21 07/05/19 23:16 95 Room Air 21 07/05/19 21:18 Room Air 07/05/19 20:15 73 137/88 07/05/19 20:12 98.1 73 17 137/88 (104) 97 07/05/19 16:00 98.0 72 18 134/78 (96) 95 07/05/19 14:23 98.2 Intake and Output 07/05/19 07/06/19 19:00 07:00 Intake Total 1000 ml 480 ml Balance 1000 ml 480 ml Intake Oral 1000 ml 480 ml # Voids 3 General Appearance: WD/WN, no acute distress HEENT: normocephalic, atraumatic, anicteric, mucous membranes moist Respiratory/Chest: chest wall non-tender, lungs clear, normal breath sounds, no respiratory distress Cardiovascular: irregularly irregular Abdomen: normal bowel sounds, soft, non tender, no organomegaly, non distended , no mass Extremities: no cyanosis, no clubbing, no edema Current Medications Medications (Trade) Dose Ordered Sig/Felipe Route PRN Reason Start Time Stop Time Status Last Admin Dose Admin Acetaminophen (Tylenol) 650 mg Q4H PRN ORAL Mild Pain/Temp > 100.5 07/02/19 17:15 08/01/19 17:14 Acetaminophen/ Hydrocodone Bitart ([place] 5/325) 1 tab Q4H PRN ORAL Moderate Pain (Pain Scale 4-6) 07/02/19 17:15 07/09/19 17:14 07/04/19 17:36 Albuterol/ Ipratropium (Albuterol/ Ipratropium) 3 ml Q4H PRN HHN Shortness of Breath 07/02/19 18:45 07/07/19 18:44 Amlodipine Besylate (Norvasc) 5 mg DAILY ORAL 07/03/19 09:00 08/02/19 08:59 07/06/19 08:16 Apixaban (Eliquis) 5 mg BID ORAL 07/02/19 18:00 08/01/19 17:59 07/06/19 08:16 Digoxin (Lanoxin) 0.125 mg DAILY ORAL 07/03/19 09:00 08/02/19 08:59 07/06/19 08:21 Iopamidol (Isovue-300 100ml) 100 ml NOW PRN INJ Radiology Procedure 07/02/19 12:45 Loratadine (Claritin 10mg) 10 mg Q24H PRN ORAL SNEEZING AND RUNNY NOSE 07/03/19 21:30 08/02/19 21:29 07/03/19 21:43 Metoprolol Succinate (Toprol XL) 25 mg Q12HR ORAL 07/03/19 21:00 08/01/19 17:59 07/06/19 08:16 Morphine Sulfate (Morphine Sulfate) 2 mg Q4H PRN IVP Severe Pain (Pain Scale 7-10) 07/02/19 17:15 07/09/19 17:14 07/06/19 08:16 Pantoprazole (Protonix) 40 mg DAILY ORAL 07/03/19 09:00 08/02/19 08:59 07/06/19 08:15 Dinesh Whyte MD Jul 06, 2019 12:02
--- NOTE | 2019-07-06 13:19 | NUR ---
NURSE NOTES: Patient discharged home as ordered. Stable. Denies pain or SOB. Patient was given thorough discharge instructions by RN, verbalized understanding. Patient has prescription. Medication teaching given to patient, verbalized understanding. No IV access. Skin is clean, dry, and intact. Patient is assisted outside by MARKETING DEVELOPMENT MANAGER without incident.
--- NOTE | 2019-07-07 12:30 | Discharge Summary ---
Discharge Summary Discharge Summary _ DATE OF ADMISSION: 07/02/2019 DATE OF DISCHARGE: 07/06/2019 DISCHARGED BY: Dr Coronel REASON FOR ADMISSION: 74 years old female with past medical history of hypertension, atrial fibrillation, failed cardioversion x3, on anticoagulation, CHF, hypothyroidism, obesity, reported trip and fall about 4 days ago. Patient reported hitting her right upper abdomen on a hard object. She stated that she had sharp pain in this location. She denied fever and chills. She denied nausea and vomiting. She denied dysuria or hematuria. She denied chest pain , but reported some shortness of breath. Upon evaluation vital signs were stable. Pulse oximetry was 92% on room air. Laboratory work-up revealed no leukocytosis , stable hemoglobin and hematocrit. Urinalysis revealed pyuria ,few bacteria, and +3 leukocyte esterase. Stable electrolytes and renal parameters. Glucose 104. Stable LFT. EKG revealed atrial fibrillation with controlled ventricular response. CT of the head demonstrated no acute intracranial bleeding or mass-effect. Chronic and age-related changes noted. CT of the abdomen and pelvis showed right lateral 8th and 9 th rib fracture. No evidence of acute solid organ or other significant soft tissue trauma. Bilateral basilar pulmonary parenchymal atelectatic changes, left greater than right. Small right pleural effusion. Patient subsequently admitted for further management CONSULTANTS: Pulmonary Orthopedic surgeon Dr. Don Pain specialist Dr. Neil HOSPITAL COURSE: Patient admitted to medical surgical floor. Gum Rolling Machine Tender followed. Per pulmonology, shortness of breath was likely multifactorial , secondary to CHF , anxiety , obesity , possible obesity hypoventilation syndrome or obstructive sleep apnea along with acute rib fracture. Acute right rib fracture 8th and 9th appeared to be minimally displaced. Supplemental oxygen titrated to keep pulse oximetry above 92%. Pulmonary toilet via handheld nebulizing therapy with bronchodilator provided. Pain management was addressed as per pain specialist recommendation. Gum Rolling Machine Tender recommended outpatient PET/CT, pulmonary function test and polysomnography . Patient was supposed to previously follow-up, but canceled the appointment. Volumes and renal parameters were closely monitored. Echocardiogram demonstrated preserved ejection fraction of 55% with mild left ventricular hypertrophy. No evidence of wall motion abnormality. Right ventricular systolic pressure of 33. Orthopedic surgeon seen and evaluated patient . Surgeon stated that patient had minimally displaced rib fracture . He recommended incentive spirometer and appropriate pain management. Pain management was addressed as per pain specialist recommendation. Per surgeon it will take about 6 to 12 weeks for the ribs to heal. Patient may be a candidate for intercostal block. Surgeon recommended hold nonsteroidal anti-inflammatory as they decrease bone healing and continue with Tylenol and other medication as per pain specialist recommendation. Home medication continued. Blood pressure was managed with beta-dre and calcium channel dre. Digoxin continue along with beta-dre for rate control. Eliquis continued. No evidence of bleeding. Pain was controlled. Patient clinically stabilized and was ready for discharge home. FINAL DIAGNOSES: Status post acute mechanical fall Right rib fracture 8 th and 9 th, minimally displaced Right chest wall pain , secondary to rib fractures Hypertension Atrial fibrillation, status post failed ablation x3 Hyperlipidemia Shortness of breath, likely multifactorial Hypothyroidism Obesity CHF with diastolic dysfunction Old granulomatous disease DISCHARGE MEDICATIONS: See Medication Reconciliation list. DISCHARGE INSTRUCTIONS: Patient was discharged home . Follow up with primary care provider in one week. I have been assigned to dictate discharge summary for this account. I was not involved in the patient's management. Sharon Lyle NP Jul 07, 2019 12:30
--- NOTE | 2019-07-07 16:56 | Consultation ---
DATE OF CONSULTATION: 07/06/2019 PAIN MANAGEMENT CONSULTATION CONSULTING PHYSICIAN: Tanvi Neil M.D. REFERRING PHYSICIAN: Devon Coronel M.D. PHYSICIAN MATERNAL FETAL PHYSICIAN: Charlette Vaz CHIEF COMPLAINT: Right chest wall pain. HISTORY OF PRESENT ILLNESS: This is a 74-year-old female, who is being seen on the Med/Surg floor of [facility] for initial pain management consultation. She has been having the right chest wall pain after a fall in her home due to her pant being too long and tripped over her leg and was found to have right chest wall rib fractures. She was seen by orthopedic surgeon. At this time, the patient is on morphine 2 mg IV every 4 hours as needed for severe pain and Vanderpool 5/325 for moderate pain. She going to be discharged home. She has no other complaints at this time. We were consulted so the patient would have adequate pain control while here in the hospital. PAST MEDICAL HISTORY: Obesity, hypothyroidism, hypertension, CHF, and AFib. SOCIAL HISTORY: Denies smoking, drinking alcohol, or IV drug abuse. ALLERGIES: Latex. MEDICATIONS: Amlodipine, Eliquis, digoxin, Synthroid, and metoprolol. REVIEW OF SYSTEMS: Denies rash, fever, chills, sweating, dizziness, drowsiness, blurred vision, sore throat, or change in weight. No nausea, vomiting, diarrhea, or blood in the stool or urine. No bowel or bladder incontinence. No dysuria. She is complaining of chest wall pain. PHYSICAL EXAMINATION: GENERAL: Alert, awake, and oriented. VITAL SIGNS: Blood pressure 155/84, heart rate 81, oxygen saturation 98%, and temperature 98 degrees Fahrenheit. HEENT: PERRLA. NECK: Range of motion is full in all directions. No tenderness to paracervical muscles. No adenopathy. LUNGS: Decreased breath sounds bilaterally. HEART: S1 and S2, regular. ABDOMEN: Soft and nontender. BACK: Range of motion is decreased in flexion and extension. EXTREMITIES: Upper and lower extremity range of motion is full in all directions. No cyanosis. No clubbing. No edema. Sensory is intact. Reflexes are not obtainable. No adenopathy. ASSESSMENT AND PLAN: A 74-year-old female with right chest wall pain with rib fractures. The patient will be continued on Vanderpool and morphine. Prescription for Vanderpool 5/325 mg one tablet every six to eight hours . The patient was discussed with Dr. Neil and Dr. Neil concurred. We will follow the patient. Thank you very much for the courtesy of this consultation. Tanvi eNil M.D. JUHI Vaz DR: AMAYA JOB#: [id number] CC:
== END 2019-07-06 14:11 | disposition home or self-care (01) | DRG 184 ==
LOC: EMR 11:56 → 3E 15:20 → EDBEDREQ 15:24 → 3E 16:20
DX: S22.41XA Multiple fractures of ribs, right side, initial encounter for closed fracture (principal); I50.30 Unspecified diastolic (congestive) heart failure; W01.0XXA Fall on same level from slipping, tripping and stumbling without subsequent striking against object, initial encounter; Y92.009 Unspecified place in unspecified non-institutional (private) residence as the place of occurrence of the external cause; I11.0 Hypertensive heart disease with heart failure; R06.02 Shortness of breath; R07.89 Other chest pain; I48.91 Unspecified atrial fibrillation; E78.5 Hyperlipidemia, unspecified; Z79.01 Long term (current) use of anticoagulants; E03.9 Hypothyroidism, unspecified; E66.9 Obesity, unspecified; D71 Functional disorders of polymorphonuclear neutrophils; F41.9 Anxiety disorder, unspecified
CPT/HCPCS: 36415; 36600; 70450; 74177; 80048; 80053; 81003; 82803; 85025; 85610; 85730; 87086; 93005; 93306; 94664; 96374; 99285

== ENCOUNTER → 2019-09-03 | Emergency (ER) | payer MEDICARE, MEDICAID ==
[~2019-09-03] VITALS: Ht 165.1 cm; Wt 106.6 kg
[~2019-09-03] MED LIST changes: +Acetaminophen 500mg (ES) tab ORAL ONE; +Diclofenac 1% Gel 100gm TOPIC ONE; +Furosemide 40mg tab ORAL ONE; +NORCO 5-325 TA1 EACH ORAL; +VOLTAREN100 G1 TP
[2019-09-03 11:38] VITALS: BP 152/108
--- NOTE | 2019-09-03 11:38 | NUR ---
ED Nurse Note: Pt. AAOx4. Ambulatory. pt. walked in to ER. per pt. she dropped a soup laddle on her left foot last saturday and dropped a shampoo bottle last Saturday. Per pt, her L foot is swollen, non-pitting edema noted.
--- NOTE | 2019-09-03 12:22 | Emergency Room Report ---
History of Present Illness General Chief Complaint: Lower Extremity Injury Source: Patient Present Illness HPI Is a 74-year-old female presents after increased left lower extremity pain and swelling. Patient recently been injured with a falling heavy metal label. She states the handle struck her on the foot. She additionally reports having some increased pain to the left foot after shampoo bottle and had also fallen on her leg. She had prior history of congestive heart failure and had been taking Lasix regularly however she had not taken this for several days. She denies any shortness of breath at this time. Allergies: Coded Allergies: LATEX (Verified Allergy, Unknown, 05/02/19) Patient History Past Medical History: see triage record Reviewed Nursing Documentation: PMH: Agreed; PSxH: Agreed Nursing Documentation-PMH Hx Cardiac Problems: Yes - AFIB Hx Hypertension: Yes Hx COPD: No Hx Cancer: No Hx Gastrointestinal Problems: Yes Hx Neurological Problems: No Review of Systems All Other Systems: negative except mentioned in HPI Physical Exam Vital Signs Date Time Temp Pulse Resp B/P (MAP) Pulse Ox O2 Delivery O2 Flow Rate FiO2 09/03/19 11:38 97.5 78 17 152/108 (123) 95 Room Air General Appearance: well appearing, no apparent distress, alert, GCS 15 Head: normocephalic, atraumatic ENT: hearing grossly normal, normal voice Neck: full range of motion, supple Respiratory: no respiratory distress, speaking full sentences Musculoskeletal: swelling - Left foot normal pulses Neurologic: normal inspection, alert, oriented x3, normal gait Psychiatric: mood/affect normal Skin: other - Swelling to the left foot. Medical Decision Making Diagnostic Impression: Primary Impression: Contusion, foot ER Course Patient presented for left foot pain. Differential diagnosis include was not limited to contusion, fracture, sprain among others. X-ray imaging was ordered. Patient was taking anticoagulation with Eliquis. She was able to ambulate. Pulses are brisk. Patient was placed in Ulises wrap and given crutches. She is given prescription for pain medications. She is advised to keep her leg elevated as much as possible to minimize swelling. She advised to return if any worsening condition or other concerns. Last Vital Signs Date Time Temp Pulse Resp B/P (MAP) Pulse Ox O2 Delivery O2 Flow Rate FiO2 09/03/19 11:38 97.5 78 17 152/108 (123) 95 Room Air Status: improved Disposition: HOME, SELF-CARE Condition: Stable Scripts Diclofenac Sodium (VOLTAREN) 100 Gm Gel..gram. 5 GM TP TWICE A DAY for pain, #100 GM Prov: Tommy Becker MD 09/03/19 Hydrocodone Bit/Acetaminophen 5-325* (NORCO 5-325*) 1 Each Tablet 1 TAB ORAL Q6H PRN for For Pain, #10 TAB 0 Refills Prov: Tommy Becker MD 09/03/19 Tommy Becker MD Sep 03, 2019 12:22
--- NOTE | 2019-09-03 12:43 | NUR ---
ED Nurse Note: TOOL FILER AT THE BED SIDE FOR XRAY.
--- NOTE | 2019-09-03 15:40 | Diagnostic Imaging Report ---
Indication: Left foot pain Technique: 3 views left foot Comparison: none Findings: There is mild hammertoe deformities of the second, third, and fourth digits. No acute fractures. No dislocations. There is a plantar spur. Impression: No acute process
== END | disposition home or self-care (01) ==
LOC: EMR 12:27
DX: S90.32XA Contusion of left foot, initial encounter (principal); Z91.040 Latex allergy status; I48.91 Unspecified atrial fibrillation; I10 Essential (primary) hypertension; Z79.01 Long term (current) use of anticoagulants; W20.8XXA Other cause of strike by thrown, projected or falling object, initial encounter; Y92.9 Unspecified place or not applicable
CPT/HCPCS: 99283